=== PATIENT | female | born 1980 | race Caucasian/White ===

== ENCOUNTER 2022-12-21 20:13 | Outpatient (REF) | payer OTHER, SELFPAY ==
[2022-12-25 12:14] LABS: Age Gdln ACOG Testing Note (.); HPV Aptima Negative (Negative); IGP, Aptima HPV, rfx 16/18,45 Note (.)
== END 2022-12-21 20:14 | disposition home or self-care (01) ==
LOC: LAB 20:13
PROVIDERS: Visit Provider Obstetrics & Gynecology
DX: Z01.419 Encounter for gynecological examination (general) (routine) without abnormal findings (principal)
CPT/HCPCS: 87624; G0145

== ENCOUNTER 2023-01-01 07:25 | Outpatient (OUT) | payer OTHER, SELFPAY ==
--- NOTE | 2023-01-01 07:27 | MM_ITS ---
Patient: ELOISA IGLESIAS Exam Date: 01/01/2023 : 1980 Gender:F Ordering : DR Fernando Garrido . Admission #: [id number] Family : ITALIA NEW Order #: [id number] CLICK HERE TO VIEW EXAM RADIOLOGY REPORT PROCEDURE: MM TOMOSYNTHESIS SCREENING BI COMPARISON: MG MAMM SCREEN 3D ROXI CAD, 12/09/2020. MG MAMM SCREEN 3D ROXI CAD, 12/19/2021. INDICATIONS: Screening mammogram Calculator Name NCI Breast Cancer Risk Assessment Tool 5 Year Breast Cancer Risk 0.70% Lifetime Breast Cancer Risk 10.00% Personal Breast Cancer No Personal Ovarian Cancer No Treatments None Family Cancers Father with lung cancer at age 53; Grandfather-paternal with lung cancer at age 70. LOCATION: [facility] BREAST COMPOSITION: Extremely dense, which lowers the sensitivity of mammography. FINDINGS: DIAGNOSTIC CATEGORY 1--NEGATIVE. NO CHANGE FROM COMPARISON ASSESSMENT. RIGHT BREAST: No significant suspicious finding. LEFT BREAST: No significant suspicious finding. RECOMMENDATIONS: ROUTINE MAMMOGRAM AND CLINICAL EVALUATION IN 12 MONTHS. PLEASE NOTE: A NORMAL MAMMOGRAM DOES NOT EXCLUDE THE POSSIBILITY OF BREAST CANCER. A CLINICALLY SUSPICIOUS PALPABLE LUMP SHOULD BE BIOPSIED. Dictated by: Peter Weaver MD on 01/01/2023 at 09:06 Approved by: Peter Weaver MD on 01/01/2023 at 09:08
== END 2023-01-01 07:26 | disposition home or self-care (01) ==
LOC: MAMMO 07:25
PROVIDERS: Visit Provider Obstetrics & Gynecology
DX: Z12.31 Encounter for screening mammogram for malignant neoplasm of breast (principal); Z80.1 Family history of malignant neoplasm of trachea, bronchus and lung
CPT/HCPCS: 77063; 77067

== ENCOUNTER 2024-01-05 19:19 | Outpatient (REF) | payer OTHER, SELFPAY ==
--- OUTSIDE RECORDS SUMMARY | 2024-01-05 19:23 | XMS_ITS | CCD ---
Author Organization [facility] Care Team Providers Care Anthropology And Archeology Instructor Name Role Phone Idalmis Garcia Primary Care Provider Yolanda CHEUNG Primary Care Physician [phone] HERMELINDO, DR ROSS Attending Unavailable HERMELINDO, DR ROSS Consulting Unavailable REQUEST, NONE LISTED Primary Care Unavaila ble HERMELINDO, DR ROSS Admitting Unavailable HERMELINDO, DR ROSS Attending Unavailable REQUEST, NONE LISTED Primary Care Unavaila ble HERMELINDO, DR ROSS Consulting Unavailable HERMELINDO, DR ROSS Admitting Unavailable AGUBOSIM, ELMER Consulting Unavailable MAXIM BAUER Consulting Unavailable HERMELINDO, DR ROSS Attending Unavailable West, DR Green Consulting Unavailable REQUEST, NONE LISTED Primary Care Unavaila ble HERMELINDO, DR ROSS Admitting Unavailable HERMELINDO, DR ROSS Consulting Unavailable HERMELINDO, DR ROSS Consulting Unavailable REQUEST, NONE LISTED Primary Care Unavaila ble HERMELINDO, DR ROSS Admitting Unavailable HERMELINDO, DR ROSS Attending Unavailable Ziitaliaer, DR Domínguez Consulting Unavailable West, DR Green Consulting Unavailable REQUEST, NONE LISTED Primary Care Unavaila ble HERMELINDO, DR ROSS Admitting Unavailable HERMELINDO, DR ROSS Attending Unavailable HERMELINDO, DR ROSS Consulting Unavailable HERMELINDO, DR ROSS Attending Unavailable HERMELINDO, DR ROSS Consulting Unavailable REQUEST, NONE LISTED Primary Care Unavaila ble HERMELINDO, DR ROSS Admitting Unavailable NOLA PHAM Admitting Unavailable REQUEST, NONE LISTED Primary Care Unavaila NOLA Ramirez Attending Unavailable NOLA PHAM Consulting Unavailable ROLDAN URRUTIA Consulting Unavailable Fernando Garrido MD Primary Care Provider ANABELA BOYD Referring Unavailable FERNANDO GARRIDO Primary Care Unavailable KELY GOMEZ Referring Unavailable FERNANDO GARRIDO Primary Care Unavailable KELY GOMEZ Referring Unavailable FERNANDO GARRIDO Primary Care Unavailable KELY GOMEZ Referring Unavailable FERNANDO GARRIDO Primary Care Unavailable Reanna NEW Primary Care Physician CED NEW Attending Unavailable SHAQ, CED Forte E Admitting Unavailable SHAQ, CED Forte E Attending Unavailable SHAQ, CED Reanna E Admitting Unavailable SHAQ, CED Reanna E Attending Unavailable Wittenauer, Hannah SAnthony Attending Unavailable Hannah Abel SAnthony Attending Unavailable SHAQ, CED Forte E Attending Unavailable Allergies Allergy Classification Reported Allergen(s) Allergy Type Date of Onset Reaction(s) Facility (1 source) No Known Medication Allergies; Translations: [No Known Medication Allergies] Propensity to adverse reactions (disorder) [facility] Repository Medications Current Medications Medication Drug Class(es) Dates Sig (Normalized) Sig (Original) amoxicillin 875 mg / clavulanate 125 mg oral tablet (1 source) Penicillin-class Antibacterial Start: 07-03-2021 End: 2021 take 1 tablet by mouth every twelve hours Augmentin 875 mg oral tablet = 1 tab(s), Oral, q12hr, X 10 day(s), # 20 tab(s), Refills(s) 0, Pharmacy: [facility], 170, cm, 07/03/21 13:50:00 EDT, Height/Length Dosing, 63.9, kg, 07/03/21 13:50:00 EDT, Weight Dosing Start Date: 07/03/21 Stop Date: 07/13/21 Status: Ordered cephalexin 500 mg oral capsule (1 source) Cephalosporin Antibacterial Start: 06-21-2021 End: 06-26-2021 take 1 capsule by mouth every twelve hours Keflex 500 mg Cap 500 mg = 1 cap(s), Oral, q12hr, X 5 day(s), # 10 cap(s), Refills(s) 0, Pharmacy: [facility], 170, cm, 06/20/21 23:04:00 EDT, Height/Length Dosing, 64.3, kg, 06/20/21 23:04:00 EDT, Weight Dosing Start Date: 06/21/21 Stop Date: 06/26/21 Status: Ordered clindamycin 10 mg/ml topical foam (4 sources) Lincosamide Antibacterial Start: 05-01-2022 Clindamycin Phosphate 1 % FOAM Apply 1 drop topically in the morning and at bedtime 100 g 3 05/01/2022 Active docusate sodium 100 mg oral capsule (2 sources) Start: 10-30-2020 take 1 capsule by mouth twice daily as needed for constipation Colace 100 mg Cap 100 mg = 1 cap(s), Oral, BID, PRN for constipation, # 60 cap(s), Refills(s) 0, Pharmacy: [facility], 171, cm, 10/30/20 14:37:00 EDT, Height/Length Dosing, 62.9, kg, 10/30/20 14:37:00 EDT, Weight Dosing Start Date: 10/30/20 Status: Ordered famotidine 10 mg oral tablet (2 sources) Histamine-2 Receptor Antagonist Start: 06-21-2021 End: 07-05-2021 take 1 tablet by mouth twice daily famotidine 10 mg oral tablet 10 mg = 1 tab(s), Oral, BID, X 14 day(s), # 28 tab(s), Refills(s) 0, Pharmacy: [facility], 170, cm, 06/20/21 23:04:00 EDT, Height/Length Dosing, 64.3, kg, 06/20/21 23:04:00 EDT, Weight Dosing Start Date: 06/21/21 Stop Date: 07/05/21 Status: Ordered fluticasone 0.05 mg/inh Nasal [place] (4 sources) Start: 07-03-2021 take 2 spray(s) nasal route once daily fluticasone 0.05 mg/inh Nasal [place] 2 spray(s), Nasal, Daily, 16 gram, Refill(s) 2, each nostril, [facility], 170, cm, 07/03/21 13:50:00 EDT, Height/Length Dosing, 63.9, kg, 07/03/21 13:50:00 EDT, Weight Dosing Start Date: 07/03/21 Status: Ordered lidocaine 0.05 mg/mg topical ointment (4 sources) Antiarrhythmic, Amide Local Anesthetic Start: 03-16-2022 lidocaine (XYLOCAINE) 5 % ointment Indications: Vulvodynia Apply topically as needed to the vulvar introitus 30 g 3 03/16/2022 Active predniSONE 20 mg oral tablet (1 source) Start: 07-03-2021 End: 07-08-2021 take 2 tablets by mouth once daily predniSONE 20 mg Tab 40 mg = 2 tab(s), Oral, Daily, X 5 day(s), # 10 tab(s), Refills(s) 0, Pharmacy: [facility], 170, cm, 07/03/21 13:50:00 EDT, Height/Length Dosing, 63.9, kg, 07/03/21 13:50:00 EDT, Weight Dosing Start Date: 07/03/21 Stop Date: 07/08/21 Status: Ordered Completed/Discontinued Medications Medication Drug Class(es) Dates Sig (Normalized) Sig (Original) Itraconazole (2 sources) Azole Antifungal Start: 11-10-2022 Itraconazole Itraconazole, See Instructions, 90 tab(s), 0, 200mg po daily, [facility], Supply, 170, cm, 11/10/22 16:46:00 EDT, Height/Length Dosing, 65.3, kg, 11/10/22 16:46:00 EDT, Weight Dosing Start Date: 11/10/22 Status: Ordered Problems Active Problems Problem Classification Problem Date Documented Da te Episodic/Chronic Abdominal pain (19 sources) Abdominal pain; Translations: [Unspecified abdominal pain] Onset: 01-25-2021 Episodic Conditions associated with dizziness or vertigo (4 sources) Dizziness and giddiness; Translations: [Dizziness and giddiness] Onset: 11-10-2022 Episodic Endometriosis (1 source) Endometriosis, unspecified; Translations: [ENDOMETRIOSIS UNSPECIFIED] Onset: 07-02-2021 Chronic Hemorrhoids (6 sources) Hemorrhoids 10-30-2020 Episodic Immunizations and screening for infectious disease (1 source) Encounter for screening for human papillomavirus (HPV); Translations: [ENC SCREENING HUMAN PAPILLOMAVIRUS] Onset: 12-09-2021 Episodic Malaise and fatigue (4 sources) Fatigue; Translations: [Other fatigue] Onset: 11-10-2022 Episodic Menstrual disorders (1 source) Excessive and frequent menstruation with regular cycle; Translations: [EXCESS FREQ MENSTRUATION W/REG CYCL] Onset: 07-02-2021 Chronic Mycoses (11 sources) Onychomycosis due to dermatophyte ; Translations: [Tinea unguium] Onset: 11-10-2022 Episodic Other diseases of bladder and urethra (4 sources) Cyst of vulva; Translations: [Other specified disorders of urethra] Onset: 05-06-2022 Episodic Other diseases of bladder and urethra (1 source) Other specified disorders of urethra; Translations: [Other specified disorders of urethra] Onset: 05-01-2022 Episodic Other female genital disorders (4 sources) Vulvodynia; Translations: [Vulvodynia, unspecified] Onset: 03-16-2022 03-16-2022 Chronic Other female genital disorders (1 source) Vulvodynia, unspecified; Translations: [Vulvodynia, unspecified] Onset: 03-16-2022 Chronic Other female genital disorders (2 sources) Other specified noninflammatory disorders of vagina; Translations: [OTH SPEC NONINFLAMMATORY D/O VAGINA] Onset: 07-02-2021 Episodic Other female genital disorders (1 source) Vaginal discharge; Translations: [Other specified noninflammatory disorders of vagina] Episodic Other gastrointestinal disorders (2 sources) Abnormal feces; Translations: [Other fecal abnormalities] Onset: 11-10-2022 Episodic Other gastrointestinal disorders (2 sources) Dark stools 11-10-2022 Episodic Other screening for suspected conditions (not mental disorders or infectious disease) (8 sources) Encounter for screening mammogram for malignant neoplasm of breast; Translations: [Encounter for screening for malignant neoplasm of cervix] Onset: 12-08-2021 Episodic Other upper respiratory infections (2 sources) Acute maxillary sinusitis, unspecified; Translations: [Acute maxillary sinusitis] Onset: 07-03-2021 Episodic Residual codes; unclassified (1 source) Family history of malignant neoplasm of trachea, bronchus and lung; Translations: [FAM HX MALIG NEOPLSM TRACH BRON LNG] Onset: 12-24-2021 Episodic Residual codes; unclassified (2 sources) Body mass index 20-24 - normal; Translations: [Body mass index (BMI) 22.0-22.9, adult] Onset: 11-10-2022 Episodic Unclassified (2 sources) Body mass index 20-24 - normal 10-30-2020 Unclassified (2 sources) History of SARS-CoV-2 10-30-2020 Unclassified (1 source) CONTACT W/AND (SUSP) EXPOS COVID-19; Translations: [CONTACT W/AND (SUSP) EXPOS COVID-19] Onset: 06-27-2021 Unclassified (2 sources) Finding of sensation of abdomen 11-10-2022 Urinary tract infections (3 sources) Urinary tract infectious disease; Translations: [Urinary tract infection, site not specified] Onset: 06-21-2021 Episodic Past or Other Problems Problem Classification Problem Date Documented Da te Episodic/Chronic Other female genital disorders (1 source) Vulvar cyst; Translations: [VULVAR CYST] Onset: 07-02-2021 Episodic Ovarian cyst (2 sources) Unspecified ovarian cyst, left side; Translations: [Unspecified ovarian cyst, right side] Onset: 01-27-2021 Episodic Results Test Name Value Interpretation Reference Range Facility Consultation Noteon 02-17-20 Consultation Note [id number] #[id number] Normal [facility] CMPon 02-10-2023 Albumin [Mass/Vol] 4.2 g/dL Normal 3.3-5.0 [facility] Comment on above: Performed By: #### 1 [id number] #### [facility] Laboratory [address] [place] [address] Albumin/Globulin [Mass ratio] 1.9 {ratio} Normal 1.1-2.2 [facility] Comment on above: Performed By: #### 1 [id number], [id number] #### [facility] [address] [place] [address] Alk Phos 26 Int._Unit/L Normal 21-98 [facility] Comment on above: Performed By: #### 1 [id number], [id number] #### [facility] [address] [place] [address] ALT 9 Int._Unit/L Normal 6-46 [facility] Comment on above: Performed By: #### 1 [id number], [id number] #### [facility] [address] [place] [address] Anion gap [Moles/Vol] 8 mmol/L Normal 6-16 [facility] Comment on above: Performed By: #### 1 [id number], [id number] #### [facility] [address] [place] [address] AST 14 Int._Unit/L Normal 5-43 [facility] Comment on above: Performed By: #### 1 [id number], [id number] #### [facility] [address] [place] [address] Bili Total 0.3 mg/dL Normal 0.0-1.1 [facility] Comment on above: Performed By: #### 1 [id number], [id number] #### [facility] [address] [place] [address] BUN/Creat Ratio 19 No Units Normal 10-20 [facility] Comment on above: Performed By: #### 1 [id number], [id number] #### [facility] [address] [place] [address] Calcium [Mass/Vol] 9.1 mg/dL Normal 8.9-11.1 [facility] Comment on above: Performed By: #### 1 [id number], [id number] #### [facility] [address] [place] [address] Chloride [Moles/Vol] 106 mmol/L Normal 101-111 [facility] Comment on above: Performed By: #### 1 [id number], [id number] #### [facility] [address] [place] [address] CO2 [Moles/Vol] 28 mmol/L Normal 21-31 [facility] Comment on above: Performed By: #### 1 [id number], [id number] #### [facility] [address] [place] [address] Creatinine [Mass/Vol] 0.7 mg/dL Normal 0.5-1.3 [facility] Comment on above: Performed By: #### 1 [id number], [id number] #### [facility] [address] [place] [address] Globulin (S) [Mass/Vol] 2.2 g/dL Normal 1.4-4.0 [facility] Comment on above: Performed By: #### 1 [id number], [id number] #### [facility] [address] [place] [address] Glucose [Mass/Vol] 117 mg/dL Normal 55-199 [facility] Comment on above: Performed By: #### 1 [id number], [id number] #### [facility] [address] [place] [address] Potassium [Moles/Vol] 4.3 mmol/L Normal 3.5-5.3 [facility] Comment on above: Performed By: #### 1 [id number], [id number] #### [facility] [address] [place] [address] Protein [Mass/Vol] 6.4 g/dL Normal 6.0-7.8 [facility] Comment on above: Performed By: #### 1 [id number], [id number] #### [facility] [address] [place] [address] Sodium [Moles/Vol] 138 mmol/L Normal 135-145 [facility] Comment on above: Performed By: #### 1 [id number], [id number] #### [facility] [address] [place] [address] Urea nitrogen [Mass/Vol] 13 mg/dL Normal 5-21 [facility] Comment on above: Performed By: #### 1 [id number], [id number] #### [facility] [address] [place] [address] Family Medicine Office/Clini c Noteon 02-10-2023 Family Medicine Office/Clinic Note Chief Complaint 3 mo f/u HPI Staff 3 mo f/u - Nail Fungus - Itraconazole 200 mg daily prescribed. Pt to have LFTs rechecked. CMP ordered. Pt states it is hard to tell if the medication is working. States the middle of the nail on the 3rd right toe fell off again two wks. There is some improvement in her right great nail, there is still a small edge of white discoloration on that nail. History of Present Illness Fe Linton is a 42-year-old female who presents today for a 3-month follow-up, mostly of onychomycosis, but also some other issues. During the 10/2022 appointment, she expressed worries about abdominal cramping, dark stools (not necessarily bloody), and dizziness. Although TSH and CMP results were normal, I requested a hemoccult blood test, but it appears it may not have been conducted. Regarding her nail fungus, she was prescribed 200 mg daily for 12 weeks, and a follow-up for that is scheduled today, 02/09/2023. Initially, liver function was within normal parameters. The patient describes the distal portion of her right great toe as broken off, thickened, yellow, and notes a similar condition in the third right toe with a broken-off, thickened, discolored surrounding nailbed and erythematic skin involvement. She mentions that the right great toenail fell off and grew back in an unusual manner. While she cannot definitively assess the improvement of the edges, she observes that the middle of the nail bed remains thick, with the remaining edges being the toenail. She follows a routine of filing and applying essential oils after her shower, noting some progress but uncertain about a complete return to normal. Despite having about 19 days left of itraconazole; she expresses concern about the appearance not reverting to its usual state. She values wearing flip-flops and is cautious about potential contagion. The affected area is not sensitive to touch. Her stomach is in good condition. Initially, she found it challenging to obtain the sample, and when she finally did, it was a morning one that appeared more solid. While there was initial improvement, her well-being regressed afterward. Her dizziness has resolved. She underwent Pap smear and breast exams at [facility], where it was disclosed that she has dense and fibrous breasts. Despite experiencing soreness on the side, both exams yielded normal results. On 06/21/2022, she underwent a CT scan of the abdomen and pelvis with contrast at [facility], revealing a cyst on her left kidney, along with a kidney stone and a 5 mm diameter cyst in the anterior cortex of the left kidney. The left kidney displayed normal characteristics. Additionally, her uterus is anteverted, and small follicular ovarian cysts were noted. In 12/2022, she experienced severe pain and a ruptured cyst, leading to a diagnostic procedure within 1.5 weeks, during which a cyst was removed. Since then, she has been in good health. Review of Systems PHQ Score Initial Depression Screen Score: 0 SCORE All other systems are negative except as stated in the HPI. Physical Exam Vitals & Measurements HR: 80(Peripheral) BP: 115/81 SpO2: 97% HT: 67 in HT: 170 cm WT: 66.7 kg WT: 146.74 lb BMI: 23.08 General: Well developed, well nourished, in no acute distress Lungs: Normal respiratory effort and clear to auscultation Cardio: Regular rate and rhythm, normal S1 and S2, no murmur, no rub Neurologic: Grossly normal Lymph Nodes: No cervical adenopathy, nodes normal Mental Status: Alert and oriented x3. Normal mood and affect Extremities: Right great toe has gone, and the medial proximal nail is still thickened and deformed. The right third toe is growing back with some white discoloration, but not thick or yellow. Assessment/Plan 1. Onychomycosis of toenail (B35.1: Tinea unguium) Improved some but still deformed. Podiatry referral placed as it cosmetically is bothering her. Repeat CMP to check liver function today. 2. BMI 23.0-23.9, adult (Z68.23: Body mass index [BMI] 23.0-23.9, adult) Normal BMI. 3. Abdominal cramps (R10.9: Unspecified abdominal pain) Dark stools. 4. Dark stools (R19.5: Other fecal abnormalities) Resolved 5. Fatigue (R53.83: Other fatigue) All resolved after she completed 2 weeks of the antifungal. 6. Lightheaded (R42: Dizziness and giddiness) All resolved after she completed 2 weeks of the antifungal. Portions of this record may have been created with voice recognition artificial intelligence software, specifically [employer], [employer] and or [employer]. Substitutions may have occurred with voice recognition and artificial intelligence software. ATTESTATION: Documentation services were performed after patient or guardian consented to allow [employer] to record this visit. QUIANA marketing automation specialist and provider reviewed before signing. QUIANA: Aurora Vazquez Follow-up With When Contact Information Reanna NEW CNP Only if needed [address] (more content not included)... Normal [facility] Comment on above: Result Comment: Elec tronically Signed By: Reanna NEW CNP\.br\Date and Time Signed: 02/10/23 09:22 EST\.br\Electronically Co-Signed By: Aurora Vazquez\.br\Date and Time Co-Signed: 02/09/23 20:30 EST Physician Referralon 023 Physician Referral [id number] #[id number] [facility] eGFRon 02-10-2023 eGFR 111 mL/min/1.73 m2 Normal >=59 [facility] Comment on above: Order Comment: Order added by Discern Expert. Performed By: #### 1 [id number], [id number] #### [facility] Laboratory [address] [place] [address] Ambulatory Visit Summaryon 1 04-12-2022 Ambulatory Visit Summary FE LINTON :1980 Visit Date:02/09/2023 Ambulatory Visit Instructions Your Diagnosis Onychomycosis of toenail BMI 23.0-23.9, adult Abdominal cramps Dark stools Fatigue Lightheaded Your Care Team Attending Physician - Reanna NEW CNP Primary Care Physician - Reanna NEW CNP This Is Your Medications List Contact prescribing physician if questions or concerns fluticasone nasal (fluticasone 0.05 mg/inh Nasal [place]) [Image Removed: STOP]Stop taking these medications Misc Prescription (Itraconazole) Procedures Performed Ablation. Discharge Vitals Heart Rate (Peripheral) 80 Blood Pressure 115/81 Height 170 cm Height 67 in Weight 66.7 kg Weight 146.74 lb BMI 23.08 What to do next You Need to Schedule the Following Appointments Follow Up with Reanna NEW CNP When: Only if needed Where: [address] [place] [address]- Someone Will Contact You Regarding These Appointments [facility]ulatory Referral, Geographic proximity, Podiatry, [facility], 02/09/23 16:30:00 EST, Onychomycosis of toenail Medications What How Much When Instructions Unchanged fluticasone nasal (fluticasone 0.05 mg/ inh Nasal [place]) 2 Sprays Nasal Inhalation Every day each nostril Contact prescribing physician if questions or concerns What How Much When Comments Stop Taking Misc Prescription (Itraconazole) See instructions 200mg po daily Allergies No Known Medication Allergies Problems Ongoing - Any problem that you are currently receiving treatment for. Onychomycosis of toenail Historical - Any problem that you are no longer receiving treatment for. Hemorrhoid Nail fungus Tinea pedis, right Patient Survey You may receive a survey via text or e-mail asking about your office visit. Please share your experience with us by completing your survey. We appreciate your feedback and thank you for choosing us for your care. Normal [facility] Family Medicine Office/Clini c Noteon 11-18-2022 Family Medicine Office/Clinic Note Chief Complaint Dizziness, nail fungus HPI Staff Nail Fungus - Terbinafine 250 mg qd X 30 days prescribed in July. Pt did finish the prescription and states it did not work. States on her right great toe the fungus seems to be spreading further into the base of the nail. The third toenail may be clearing up but she has had some sensitivity on and off with that toes. Pt is c/o fatigue, lightheadedness and a brain fog for the past month. She had labs done in Sep in [place], she brought results for review. Pt also c/o diarrhea that started Wednesday, she had liquid diarrhea all day on Wednesday with severe abd pain. She took Imodium and almost took herself to the ER. The diarrhea persists into today, no longer liquid but is very loose. States the color off her diarrhea has been very dark, borderline black. History of Present Illness Fe Linton is a 42-year-old female who presents today for a recheck of onychomycosis. She saw Dr. Abel back on 08/11/2022 here for right toenail fungus. It was on primarily her great toe about a month ago and then spread to the third toe. She noticed some soreness to the third toe and took her nail wallisian off and that is when she saw the nail discoloration. She did have similar years ago and [id number] things resolved it, but that was not helping this time. She was prescribed terbinafine 250 mg once a day for 30 days. She did discuss Penlac as additional, but this was not prescribed. It does not appear, and she was told to use corrox to clean things. She did have an ER visit last year and liver enzymes were normal. She finished the terbinafine prescription. Unfortunately, it did not work. The right great toe seems to be spreading into the nail more. The third toenail might be clearing up, but both toes are very sensitive. She also has had brain fog, fatigue, and some lightheadedness, not necessarily dizziness for the past month. In 09/2022, [facility] [facility]. She has those labs with her today. She also had a recent GI illness on 11/06/2022. Five days ago, she started with diarrhea. The diarrhea persisted until 11/08/2021, with clear liquid diarrhea. She also had severe abdominal pain on 11/08/2021. She did take Imodium. The diarrhea is still there, but is no longer liquid, but very loose. The color of the stool is very dark, almost black. Reviewing the labs from [facility], the CBC was completely normal. Electrolytes normal. Blood sugar 102 mg/dL. Creatinine 0.72 mg/dL. GFR greater than 60 mL/min. Total cholesterol 178 mg/dL, HDL 67 mg/dL, LDL 102 mg/dL, triglycerides 45 mg/dL. A1c 5.4 percent. She has not been feeling well and her toe was not healing. She denies any family history of thyroid issues. She denies any weight gain or weight loss. Since the beginning of 09/2022, she has been feeling dizzy and lightheaded. She notes that when she gets up at work, her legs feel weak and heavy. As the day goes on, she feels a little better, but she feels off all day long and then extremely dizzy. She had her glucose level and blood pressure checked but it was all normal. She started taking collagen over the summer. She has not noticed a difference with her fingernails, but she thought her eyelashes were growing a little longer. She always loses a lot of hair in the shower, but she has not noticed anything more than normal. She denies any temperature intolerances. She is a little insensitive to the heat since she is getting older. Sometimes she will be sitting still and then suddenly, she will feel like it is spinning but she does not think she gets nauseous with it. She has rare heart palpitations. She denies any shortness of breath. She denies any allergy issues until this last week. She was not sure if she had a cold or if she had an allergy. She was prescribed terbinafine for 30 days and may have helped the one, but they are still very sensitive and her great toe is getting worse. It started with a dent and then it kept getting grosser as it fell off. She states that now it is growing back. She bought some homeopathic oil and was putting it on religiously, but she is unsure if the oils were seeping into her sides, and she did not notice a difference. She has been spraying her showers and sleeping with a sock. She gets pain that starts on the side of her abdomen and radiates. She gets a heavy feeling, and she has to go numb. The cramping has been going on since 11/08/2022. She has an appetite. She denies any fevers or chills. She feels nauseous when her stomach is crampy. She went to the bathroom 4 times at work. Wednesday morning, 11/07/2022, she went to have a bowel movement as soon as she got out of bed. On 11/09/2022, she woke up and she was going every 10 minutes from 7:30 AM to noon until her Imodium kicked in. It was watery and stringy then it settled like blood. She was getting nervous because it would not stop. She felt garbage at work on 11/09/2022. She states th (more content not included)... Normal [facility] Comment on above: Result Comment: Elec tronically Signed By: Reanna NEW CNP\debra\Date and Time Signed: 11/18/22 10:03 EDT\.br\Electronically Co-Signed By: Marisa Gonzalez\.br\Date and Time Co-Signed: 11/10/22 20:42 EDT CHEMISTRYOrdered By: SYSTEM SYSTEM on 11-11-2022 Albumin [Mass/Vol] 4.3 g/dL Normal 3.3 - 5.0 gm/dL [facility] Remisol Albumin/Globulin [Mass ratio] 1.4 {ratio} Normal 1.1 - 2.2 [facility] Remisol ALP [Catalytic activity/Vol] 35 [iU]/d Normal 21 - 98 Int._Unit/L [facility] Remisol ALT No additional P-5'-P [Catalytic activity/Vol] 13 [iU]/d Normal 6 - 46 Int._Unit/L [facility] Remisol Anion gap [Moles/Vol] 9 mmol/L Normal 6 - 16 mEq/L [facility] Remisol AST [Catalytic activity/Vol] 16 [iU]/d Normal 5 - 43 Int._Unit/L [facility] Rem[facility] Bilirubin [Mass/Vol] 0.4 mg/dL Normal 0.0 - 1 .1 mg/dL [facility] Remisol Calcium [Mass/Vol] 9.8 mg/dL Normal 8.9 - 11. 1 mg/dL [facility] Chloride [Moles/Vol] 104 mmol/L Normal 101 - 1 11 mmol/L [facility] CO2 [Moles/Vol] 30 mmol/L Normal 21 - 31 mmol/L [facility] Remisol Creatinine [Mass/Vol] 0.7 mg/dL Normal 0.5 - 1.3 mg/dL [facility] Remisol GFR/1.73 sq M.predicted among non-blacks MDRD (S/P/Bld) [Vol rate/Area] 111 mL/min/1.73 m2 Normal >=59mL/min/1. 73 m2 [facility] Chem S Globulin (S) [Mass/Vol] 3.0 g/dL Normal 1.4 - 4.0 gm/dL [facility] Remisol Glucose [Mass/Vol] 113 mg/dL Normal 55 - 199 mg/dL [facility] Remisol Potassium [Moles/Vol] 3.7 mmol/L Normal 3.5 - 5.3 mmol/L [facility] Remisol Protein [Mass/Vol] 7.3 g/dL Normal 6.0 - 7.8 gm/dL [facility] Remisol Sodium [Moles/Vol] 139 mmol/L Normal 135 - 145 mmol/L [facility] Remisol TSH Qn 1.14 m[IU]/L Normal 0.34 - 5.60 mcIU/mL [facility] Remisol Urea nitrogen [Mass/Vol] 14 mg/dL Normal 5 - 21 mg/dL [facility] Remisol Urea nitrogen/Creatinine [Mass ratio] 20 mg/mg Normal 10 - 20 [facility] Remisol CMPon 11-11-2022 Albumin [Mass/Vol] 4.3 g/dL Normal 3.3-5.0 [facility] Comment on above: Performed By: #### 1 [id number] #### [facility] Laboratory [address] [place] [address] Albumin/Globulin (S) [Mass conc ratio] 1.4 Normal 1.1-2.2 [facility] Comment on above: Performed By: #### 1 [id number] #### [facility] [address] [place] [address] ALP [Catalytic activity/Vol] 35 Int._Unit/L Normal 21-98 [facility] Comment on above: Performed By: #### 1 [id number], [id number] #### [facility] [address] [place] [address] ALT No additional P-5'-P [Catalytic activity/Vol] 13 Int._Unit/L Normal 6-46 [facility] Comment on above: Performed By: #### 1 [id number] #### [facility] [address] [place] [address] Anion gap [Moles/Vol] 9 mmol/L Normal 6-16 [facility] Comment on above: Performed By: #### 1 [id number], [id number] #### [facility] [address] [place] [address] AST [Catalytic activity/Vol] 16 Int._Unit/L Normal 5-43 [facility] Comment on above: Performed By: #### 1 [id number], [id number] #### [facility] [address] [place] [address] Bilirubin [Mass/Vol] 0.4 mg/dL Normal 0.0-1.1 [facility] Comment on above: Performed By: #### 1 [id number], [id number] #### [facility] [address] [place] [address] Calcium [Mass/Vol] 9.8 mg/dL Normal 8.9-11.1 [facility] Comment on above: Performed By: #### 1 [id number], [id number] #### [facility] [address] [place] [address] Chloride [Moles/Vol] 104 mmol/L Normal 101-111 [facility] Comment on above: Performed By: #### 1 [id number], [id number] #### [facility] [address] [place] [address] CO2 [Moles/Vol] 30 mmol/L Normal 21-31 [facility] Comment on above: Performed By: #### 1 [id number], [id number] #### [facility] [address] [place] [address] Creatinine [Mass/Vol] 0.7 mg/dL Normal 0.5-1.3 [facility] Comment on above: Performed By: #### 1 [id number], [id number] #### [facility] [address] [place] [address] Globulin (S) [Mass/Vol] 3.0 g/dL Normal 1.4-4.0 [facility] Comment on above: Performed By: #### 1 [id number], [id number] #### [facility] [address] [place] [address] Glucose [Mass/Vol] 113 mg/dL Normal 55-199 [facility] Comment on above: Result Comment: If t his glucose result represents a fasting glucose, interpretation should refer to the following reference range: 55-99 mg/dL Performed By: #### 1 [id number], [id number] #### [facility] [address] [place] [address] Potassium [Moles/Vol] 3.7 mmol/L Normal 3.5-5.3 [facility] Comment on above: Performed By: #### 1 [id number], [id number] #### [facility] [address] [place] [address] Protein [Mass/Vol] 7.3 g/dL Normal 6.0-7.8 [facility] Comment on above: Performed By: #### 1 [id number], [id number] #### [facility] [address] [place] [address] Sodium [Moles/Vol] 139 mmol/L Normal 135-145 [facility] Comment on above: Performed By: #### 1 [id number], [id number] #### [facility] [address] [place] [address] Urea nitrogen [Mass/Vol] 14 mg/dL Normal 5-21 [facility] Comment on above: Performed By: #### 1 [id number], [id number] #### [facility] [address] [place] [address] Urea nitrogen/Creatinine [Mass ratio] 20 No Units Normal 10-20 [facility] Comment on above: Performed By: #### 1 [id number], [id number] #### [facility] Laboratory [address] [place] [id number] Consent for Treatmenton 10-30 Consent for Treatment [id number] 30 [id number] #[id number]:127 Normal [facility] Lab Reportson 11-11-2022 Lab Reports [id number] #[id number]:127 Normal [facility] TSH With T4fr Reflexon 11-11 TSH Qn 1.14 m[IU]/L Normal 0.34-5.60 [facility] Comment on above: Performed By: #### 1 [id number], [id number] #### [facility] [address] [place] [address] eGFRon 11-11-2022 GFR/1.73 sq M.predicted among non-blacks MDRD (S/P/Bld) [Vol rate/Area] 111 mL/min/1.73 m2 Normal >=59 [facility] Comment on above: Order Comment: Order added by Discern Expert. Result Comment: Magician Helper lisbeth kidney disease could be indicated at eGFR's of less than 60 mL/min/1.73m2. Kidney failure is indicated at less than 15 mL/min/1.73m2. Performed By: #### 1 [id number], [id number] #### [facility] Laboratory [address] [place] [address] Ambulatory Visit Summaryon 0 11-10-2022 Ambulatory Visit Summary FE LINTON :1980 Visit Date:11/10/2022 Ambulatory Visit Instructions Your Diagnosis Onychomycosis of toenail Dark stools Abdominal cramps Fatigue Lightheaded BMI 22.0-22.9, adult Your Care Team Attending Physician - Reanna NEW CNP Primary Care Physician - Reanna NEW CNP This Is Your Medications List Misc Prescription (Itraconazole) Contact prescribing physician if questions or concerns fluticasone nasal (fluticasone 0.05 mg/inh Nasal [place]) Procedures Performed Ablation. Discharge Vitals Heart Rate (Peripheral) 68 Blood Pressure 135/85 Height 170 cm Height 67 in Weight 65.3 kg Weight 143.66 lb BMI 22.6 What to do next You Need to Schedule the Following Appointments Follow Up with Reanna NEW CNP When: In 3 months Where: [address] [place] [address]- You Need to Complete the Following Clostridium Difficile PCR, Stool, Routine collect, 11/10/22, Order for future visit, Nurse collect, Dark stools, Print Label By Order Location Comprehensive Metabolic Panel, Blood, Routine collect, 11/10/22, Order for future visit, Lab Collect, Onychomycosis of toenail, Print Label By Order Location Enteric Panel by PCR, Stool, Routine collect, 11/10/22, Order for future visit, Nurse collect, Dark stools, Print Label By Order Location Fecal WBC Lactoferrin, Stool, Routine collect, 11/10/22, Order for future visit, Nurse collect, Dark stools, Print Label By Order Location Giardia lamblia, Direct Detection EIA, Stool, Routine collect, 11/10/22, Order for future visit, Nurse collect, Dark stools, Print Label By Order Location O & P Exam, Routine, Stool, Routine collect, 11/10/22, Order for future visit, Nurse collect, Dark stools, Print Label By Order Location Rotavirus Ab, Stool, Routine collect, 11/10/22, Order for future visit, Nurse collect, Dark stools, Print Label By Order Location Stool Occult Blood, Stool, Routine collect, 11/10/22, Order for future visit, Nurse collect, Dark stools, Print Label By Order Location TSH With T4fr Reflex, Blood, Routine collect, 11/10/22, Order for future visit, Lab Collect, Fatigue, Print Label By Order Location Medications What How Much When Instructions [facility] Prescription (Itraconazole) See instructions 200mg po daily Pickup at [facility] Unchanged fluticasone nasal (fluticasone 0.05 mg/ inh Nasal [place]) 2 Sprays Nasal Inhalation Every day each nostril Contact prescribing physician if questions or concerns Pharmacy Information [facility] 1986: [address] [place], [place] [id number] [phone] Medications and Immunizations Administered Not Given influenza virus vaccine, inactivated, Patient Refuses Allergies No Known Medication Allergies Problems Ongoing - Any problem that you are currently receiving treatment for. Abdominal cramps Dark stools Fatigue Lightheaded Onychomycosis of toenail Historical - Any problem that you are no longer receiving treatment for. Hemorrhoid Nail fungus Tinea pedis, right Normal [facility] Family Medicine Office/Clini c Noteon 08-12-2022 Family Medicine Office/Clinic Note HPI Staff Fe is a 42 year old female being seen for fungus on her right foot. Pt reports it started on her great toe about a month ago and the third toe started getting sore about 2 months ago which is when she knew something was not right. When she took her toenail wallisian off about a month ago she noticed discoloration and as of recently when she took her toenail wallisian off more recently she said it is evident there is an infection/fungus. PHQ 9 score - 0 History of Present Illness History of Present Illness: Patient presents today for a toe fungus on her right big toe. - Patient has fungus which extends to the base of the toe and the third metatarsal on the right foot. - Patients report having toe fungus years ago and tried to treat it with Lamisil but finds over the counter remedies ineffective. - However, in the past month, a toe fungus has developed, resulting in persistent soreness in the affected area for approximately 2 months. - She feels she may be losing a toenail, as there was a noticeable divot. About 2 weeks ago, her third metatarsal became red and swollen. - She reports that her toe fungus is not severe but causes a strange sensation, with reduced pain upon touch, decreased swelling, and better visibility after removing nail wallisian. - Patient confirms the need for a Pap smear test and mammogram, which are typically conducted by Dr. Nathan. The patient clarifies that they already had their yearly check-up and related procedures at [facility], so they are not due for another appointment until November. Review of Systems PHQ Score Initial Depression Screen Score: 0 Physical Exam Vitals & Measurements HR: 67(Peripheral) BP: 116/58 SpO2: 98% HT: 67 in HT: 170 cm WT: 64.2 kg WT: 141.24 lb BMI: 22.21 - She is alert and oriented, clean and - Ear: TM normal - Heart: normal rate and rhythm. - Lungs: clear to auscultations bilaterally with good air exchange. - Abdomen: soft and nontender. - Skin: tanned. - Lower extremities: positive for fungus on the right big toe and third toe almost to the base: Pedal pulse normal on the right foot. Assessment/Plan 1. Nail fungus (B35.1: Tinea unguium) - Prescribed Lamisil 251 a day for 30 days then in case of unresolved symptoms, the patient was also advised about the option of using Penlac for additional support in eliminating the fungus. - We advised about Clorox cleaning her tubs and wearing shoes in any type of sweaty public area, for example gyms and swimming pools. We also discussed airing out the feet and keeping nail wallisian off the toes. - Advised her that Lamisil does work through the liver, but she has a functional, healthy liver and that should not be any problem for a thirty-day trial. - Other concerns, we also addressed her Tdap and explained about Pertussis. - We completed the depression screen for the [employer] system, and she is up to date on her Paps and mammograms. - She goes to [facility] I assume that's an OBGYN and she is up to date. Portions of this record may have been created with voice recognition artificial intelligence software, specifically [employer], [employer] and or [employer]. Substitutions may have occurred due to the inherent limitations of voice recognition and artificial intelligence software. Documentation services were performed after patient or guardian consented to allow [employer] to record this visit. QUIANA marketing automation specialist and provider reviewed before signing. QUIANA: Jennifer Garcia. Entered into Easydiagnosis by: Jihan Bernard Follow-up With When Contact Information Hannah Abel DO, FAM In 1 month Additional Instructions: only if nail does not resolve Patient Education Fungal Nail Infection Problem List/Past Medical History Ongoing Hemorrhoid Maxillary sinusitis, acute Historical Nail fungus Tinea pedis, right Procedure/Surgical History Ablation. Medications fluticasone 0.05 mg/inh Nasal [place], 2 spray(s), Nasal, Daily, 2 refills LamISIL 250 mg Tab, 250 mg= 1 tab(s), Oral, Daily, 1 refills Allergies No Known Medication Allergies Social History Alcohol - Low Risk, 08/11/2022 Current, 1-2 times per year, Household alcohol concerns: No., 08/11/2022 Substance Abuse - Denies Substance Abuse, 08/11/2022 Household substance abuse concerns: No., 08/11/2022 Tobacco - Denies Tobacco Use, 08/11/2022 Never (less than 100 in lifetime) Tobacco Use:. Never Smokeless Tobacco Use:. Household tobacco concerns: No., 08/11/2022 Family History Primary malignant neoplasm of lung: Father. lamisil 250mg Normal [facility] Comment on above: Result Comment: Elec tronically Signed By: Hannah Abel DO\.br\Date and Time Signed: 08/12/22 16:41 EDT Ambulatory Visit Summaryon 0 08-11-2022 Ambulatory Visit Summary FE LINTON :1980 Visit Date:08/11/2022 Ambulatory Visit Instructions Your Diagnosis Nail fungus Your Care Team Attending Physician - Hannah Abel DO Primary Care Physician - Reanna NEW CNP This Is Your Medications List fluticasone nasal (fluticasone 0.05 mg/inh Nasal [place]) terbinafine (LamISIL 250 mg Tab) Discharge Vitals Heart Rate (Peripheral) 67 Blood Pressure 116/58 Height 170 cm Height 67 in Weight 64.2 kg Weight 141.24 lb BMI 22.21 What to do next You Need to Schedule the Following Appointments Follow Up with Hannah Abel DO, FAM When: In 1 month Comments: only if nail does not resolve Where: Medications What How Much When Instructions New terbinafine (LamISIL 250 mg Tab) 1 Tablets By Mouth Every day Duration: 14 Days Refills: [address] [facility] 1985 Unchanged fluticasone nasal (fluticasone 0.05 mg/ inh Nasal [place]) 2 Sprays Nasal Inhalation Every day each nostril Pharmacy Information [facility] 1986: [address] [place] [phone] Allergies No Known Medication Allergies Problems Ongoing - Any problem that you are currently receiving treatment for. Hemorrhoid Maxillary sinusitis, acute Historical - Any problem that you are no longer receiving treatment for. Nail fungus Tinea pedis, right Education Materials Fungal Nail Infection A fungal nail infection is a common infection of the toenails or fingernails. This condition affects toenails more often than fingernails. It often affects the great, or big, toes. More than one nail may be infected. The condition can be passed from person to person (is contagious). What are the causes? This condition is caused by a fungus, such as yeast or molds. Several types of fungi can cause the infection. These fungi are common in moist and warm areas. If your hands or feet come into contact with the fungus, it may get into a crack in your fingernail or toenail or in the surrounding skin, and cause an infection. What increases the risk? The following factors may make you more likely to develop this condition: ? Being of older age. ? Having certain medical conditions, such as: ? Athlete's foot. ? Diabetes. ? Poor circulation. ? A weak body defense system (immune system). ? Walking barefoot in areas where the fungus thrives, such as showers or locker rooms. ? Wearing shoes and socks that cause your feet to sweat. ? Having a nail injury or a recent nail surgery. What are the signs or symptoms? Symptoms of this condition include: ? A pale spot on the nail. ? Thickening of the nail. ? A nail that becomes yellow, brown, or white. ? A brittle or ragged nail edge. ? A nail that has lifted away from the nail bed. How is this diagnosed? This condition is diagnosed with a physical exam. Your health care provider may take a scraping or clipping from your nail to test for the fungus. How is this treated? Treatment is not needed for mild infections. If you have significant nail changes, treatment may include: ? Antifungal medicines taken by mouth (orally). You may need to take the medicine for several weeks or several months, and you may not see the results for a long time. These medicines can cause side effects. Ask your health care provider what problems to watch for. ? Antifungal nail wallisian or nail cream. These may be used along with oral antifungal medicines. ? Laser treatment of the nail. ? Surgery to remove the nail. This may be needed for the most severe infections. It can take a long time, usually up to a year, for the infection to go away. The infection may also come back. Follow these instructions at home: Medicines ? Take or apply [id number] and prescription medicines only as told by your health care provider. ? Ask your health care provider about using [id number] mentholated ointment on your nails. Nail care ? Trim your nails often. ? Wash and dry your hands and feet every day. ? Keep your feet dry. To do this: ? Wear absorbent socks, and change your socks frequently. ? Wear shoes that allow air to circulate, such as sandals or canvas tennis shoes. Throw out old shoes. ? If you go to a nail salon, make sure you choose one that uses clean instruments. ? Use antifungal foot powder on your feet and in your shoes. General instructions ? Do not share personal items, such as towels or nail clippers. ? Do not walk barefoot in shower rooms or locker rooms. ? Wear rubber gloves if you are working with your hands in wet areas. ? Keep all follow-up visits. This is important. Contact a health care provider if: ? You have redness, pain, or pus near the toenail or fingernail. ? Your infection is not getting better, or it is getting worse after several months. ? You have more circulat (more content not included)... Normal [facility] Patient Educationon 08-12-19 Patient Education Infectious Disease Fungal Nail Infection A fungal nail infection is a common infection of the toenails or fingernails. This condition affects toenails more often than fingernails. It often affects the great, or big, toes. More than one nail may be infected. The condition can be passed from person to person (is contagious). What are the causes? This condition is caused by a fungus, such as yeast or molds. Several types of fungi can cause the infection. These fungi are common in moist and warm areas. If your hands or feet come into contact with the fungus, it may get into a crack in your fingernail or toenail or in the surrounding skin, and cause an infection. What increases the risk? The following factors may make you more likely to develop this condition: ? Being of older age. ? Having certain medical conditions, such as: ? Athlete's foot. ? Diabetes. ? Poor circulation. ? A weak body defense system (immune system). ? Walking barefoot in areas where the fungus thrives, such as showers or locker rooms. ? Wearing shoes and socks that cause your feet to sweat. ? Having a nail injury or a recent nail surgery. What are the signs or symptoms? Symptoms of this condition include: ? A pale spot on the nail. ? Thickening of the nail. ? A nail that becomes yellow, brown, or white. ? A brittle or ragged nail edge. ? A nail that has lifted away from the nail bed. How is this diagnosed? This condition is diagnosed with a physical exam. Your health care provider may take a scraping or clipping from your nail to test for the fungus. How is this treated? Treatment is not needed for mild infections. If you have significant nail changes, treatment may include: ? Antifungal medicines taken by mouth (orally). You may need to take the medicine for several weeks or several months, and you may not see the results for a long time. These medicines can cause side effects. Ask your health care provider what problems to watch for. ? Antifungal nail wallisian or nail cream. These may be used along with oral antifungal medicines. ? Laser treatment of the nail. ? Surgery to remove the nail. This may be needed for the most severe infections. It can take a long time, usually up to a year, for the infection to go away. The infection may also come back. Follow these instructions at home: Medicines ? Take or apply sgyz-eny-lsrdpod and prescription medicines only as told by your health care provider. ? Ask your health care provider about using sluq-tbr-othlpcy mentholated ointment on your nails. Nail care ? Trim your nails often. ? Wash and dry your hands and feet every day. ? Keep your feet dry. To do this: ? Wear absorbent socks, and change your socks frequently. ? Wear shoes that allow air to circulate, such as sandals or canvas tennis shoes. Throw out old shoes. ? If you go to a nail salon, make sure you choose one that uses clean instruments. ? Use antifungal foot powder on your feet and in your shoes. General instructions ? Do not share personal items, such as towels or nail clippers. ? Do not walk barefoot in shower rooms or locker rooms. ? Wear rubber gloves if you are working with your hands in wet areas. ? Keep all follow-up visits. This is important. Contact a health care provider if: ? You have redness, pain, or pus near the toenail or fingernail. ? Your infection is not getting better, or it is getting worse after several months. ? You have more circulation problems near the toenail or fingernail. ? You have brown or black discoloration of the nail that spreads to the surrounding skin. Summary ? A fungal nail infection is a common infection of the toenails or fingernails. ? Treatment is not needed for mild infections. If you have significant nail changes, treatment may include taking medicine orally and applying medicine to your nails. ? It can take a long time, usually up to a year, for the infection to go away. The infection may also come back. ? Take or apply cqib-kca-gvfumec and prescription medicines only as told by your health care provider. This information is not intended to replace advice given to you by your health care provider. Make sure you discuss any questions you have with your health care provider. Document Revised: 05/19/2021 Document Reviewed: 05/19/2021 Elsevier Patient Education ? [address] [employer] [facility] Myco/Ureaplasma Culton 05-11 Myco/Ureaplasma Cult (NOTE) [facility] Comment on above: Result Comment: Urea plasma Species and Mycoplasma hominis Culture [facility] test code [id number] Collected: 05/01/2022 16:59 MT Started: 05/04/2022 12:46 MT Source: Genital Body Site: Genital Free Text Sources: Genital Final Report Culture negative for Mycoplasma hominis Culture negative for Ureaplasma spp Ureaplasma Species and Mycoplasma hominis Culture COLLECTED 05/01/2022 16:59 S=Susceptible, NonS=Nonsusceptible, IND=Indeterminate, I=Intermediate, SDD=Susceptibility is dose dependent, R=Resistant, None=Interpretive guidelines are not available Performed By: #### A RYLEE #### [facility] [place] [address] Attacher: Toni Mcfarland MD Vaginitis DNA Probeon [address] [facility] Comment on above: Result Comment: for Brandon sp. Method of testing is a DNA probe intended for detection and identification of Brandon species, Gardnerella vaginalis, and Trichomonas vaginalis nucleic acid in vaginal fluid specimens from patients with symptoms of vaginitis/vaginosis. Performed By: #### V AGP #### [facility] [address] [place] [id number] Attacher: Toni Mcfarland MD Gardnerella Negative Normal NEG [facility] Comment on above: Result Comment: for Gardnerella vaginalis Performed By: #### V AGP #### [facility] [address] [place] [id number] Attacher: Toni Mcfarland MD Trichomonas Negative Normal NEG [facility] Comment on above: Result Comment: for Trichomonas Vaginalis Performed By: #### V AGP #### [facility] [employer] [address] [place] [phone] Attacher: Toni Mcfarland MD Vaginitis DNA Probeon 2022 Brandon Species, DNA Probe Negative NEGATIVE [facility] Comment on above: for Brandon sp. Method of testing is a DNA probe intended for detection and identification of Brandon species, Gardnerella vaginalis, and Trichomonas vaginalis nucleic acid in vaginal fluid specimens from patients with symptoms of vaginitis/vaginosis. Gardnerella Vaginalis, DNA Probe Negative NEGATIVE [facility] Comment on above: for Gardnerella vagi nalis Source .VAGINAL SWAB [facility] Trichomonas Vaginalis DNA Negative NEGATIVE [facility] Comment on above: for Trichomonas Vagi nalis [facility] Source .VAGINAL SWAB Normal [facility] Comment on above: Performed By: #### V AGP #### [address] [address] Attacher: Toni Mcfarland MD Vaginitis DNA Probeon 2022 Brandon Negative Normal NEG [facility] Comment on above: Result Comment: for Brandon sp. Method of testing is a DNA probe intended for detection and identification of Brandon species, Gardnerella vaginalis, and Trichomonas vaginalis nucleic acid in vaginal fluid specimens from patients with symptoms of vaginitis/vaginosis. Performed By: #### V AGP #### [facility] [place] [address] Attacher: Toni Mcfarland MD Gardnerella Negative Normal NEG [facility] Comment on above: Result Comment: for Gardnerella vaginalis Performed By: #### V AGP #### [facility] [address] [place] [phone] Attacher: Toni Mcfarland MD Trichomonas Negative Normal NEG [facility] Comment on above: Result Comment: for Trichomonas Vaginalis Performed By: #### V AGP #### [facility] [address] [place] [address] Attacher: Toni Mcfarland MD Vaginitis DNA Probeon 2022 Source .VAGINAL SWAB Normal [facility] Comment on above: Performed By: #### V AGP #### [facility] [address] [place] [phone] Attacher: Toni Mcfarland MD MG MAMM SCREEN 3D ROXI CADon 12-19-2021 MG MAMM SCREEN 3D ROXI CAD Patient: FE LINTON Exam Date: 12/19/2021 : 1980 Gender:F Ordering : DR FERNANDO GARRIDO . Admission #: [id number] Family : Order #: [id number] CLICK HERE TO VIEW EXAM RADIOLOGY REPORT PROCEDURE: MAMMOGRAM SCREENING 3D BILATERAL CAD COMPARISON: MG MAMM SCREEN 3D ROXI CAD, 12/09/2020. INDICATIONS: Screening mammography Calculator Name NCI Breast Cancer Risk Assessment Tool 5 Year Breast Cancer Risk 0.60% Lifetime Breast Cancer Risk 10.10% Personal Breast Cancer No Personal Ovarian Cancer No Treatments None Family Cancers Father with lung cancer at age 53; Grandfather-paternal with lung cancer at age 70. LOCATION: [facility] BREAST COMPOSITION: Extremely dense, which lowers the sensitivity of mammography. FINDINGS: DIAGNOSTIC CATEGORY 1--NEGATIVE. NO CHANGE FROM COMPARISON ASSESSMENT. RIGHT BREAST: No significant suspicious finding. LEFT BREAST: No significant suspicious finding. RECOMMENDATIONS: ROUTINE MAMMOGRAM AND CLINICAL EVALUATION IN 12 MONTHS. PLEASE NOTE: A NORMAL MAMMOGRAM DOES NOT EXCLUDE THE POSSIBILITY OF BREAST CANCER. A CLINICALLY SUSPICIOUS PALPABLE LUMP SHOULD BE BIOPSIED. Dictated by: Matt Deluca MD on 12/19/2021 at 08:22 Approved by: Matt Deluca MD on 12/19/2021 at 08:24 Normal [facility] PAP ACOG PANEL 2: 30 to 65on 12-15-2021 . . Normal [facility] Comment on above: Result Comment: Perf ormed at: WB Performed By: #### [id number] #### [facility] [address] [place] [address] Dr. Man Arroyo Age Gdln ACOG Testing 30-65 Normal [facility] Comment on above: Performed By: #### [id number] #### [facility] [address] [place] [address] Dr. Man Arroyo DIAGNOSIS: Comment Normal [facility] Comment on above: Result Comment: NEGA TIVE FOR INTRAEPITHELIAL LESION OR MALIGNANCY. THIS SPECIMEN WAS RESCREENED PART OF OUR VERTICAL LATHE OPERATOR PROGRAM. Performed at: WB Performed By: #### [id number] #### [facility] [address] [place] [address] Dr. Man Arroyo HPV Aptima Negative Normal Negative [facility] Comment on above: Result Comment: This nucleic acid amplification test detects fourteen high-risk HPV types (16,18,31,33,35,39,45,51,52,56,58,59,66,68) without differentiation. Performed at: =G Performed By: #### [id number] #### [facility] [address] [address] [address] Man Arroyo Methodology: Comment Normal [facility] Comment on above: Result Comment: This liquid based ThinPrep(R) pap test was screened with the use of an image guided system. Performed at: WB Performed By: #### [id number] #### [facility] [address] [place] [address] Dr. Man Arroyo Note: Comment Normal [facility] Comment on above: Result Comment: The Pap smear is a screening test designed to aid in the detection of premalignant and malignant conditions of the uterine cervix. It is not a diagnostic procedure and should not be used as the sole means of detecting cervical cancer. Both false-positive and false-negative reports do occur. . Performed at: WB Performed By: #### [id number] #### [facility] [address] [place] [address] Dr. Man Arroyo Performed by: Comment Normal [facility] Comment on above: Result Comment: Andria Dricsoll, Spanner Operator (ASCP) Performed at: WB Performed By: #### [id number] #### [facility] [address] [place] [address] Dr. Man Arroyo QC reviewed by: Comment Normal [facility] Comment on above: Result Comment: Wiley Buchanan Spanner Operator Performed at: WB Performed By: #### [id number] #### [facility] [address] [place] [address] Dr. Man Arroyo Specimen adequacy: Comment Normal [facility] Comment on above: Result Comment: Sati sfactory for evaluation. Endocervical and/or squamous metaplastic cells (endocervical component) are present. Performed at: WB Performed By: #### [id number] #### [facility] [address] [place] [address] Dr. Man Arroyo CBC AUTO DIFFon 06-27-2021 BASO # 0.0 103/ul Normal 0.0-0.1 [facility] Comment on above: Performed By: #### C BC #### [facility] [address] [place] [address] Dr. Man Arroyo Basophils/100 WBC (Bld) 0.6 % Normal 0.2-2.0 [facility] Comment on above: Performed By: #### C BC #### [facility] [address] [place] [address] Dr. Man Arroyo EO # 0.1 103/ul Normal 0.0-0.7 [facility] Comment on above: Performed By: #### C BC #### [facility] [address] [place] [address] Dr. Man Arroyo Eosinophils/100 WBC (Bld) 1.1 % Normal 0.9-7.0 [facility] Comment on above: Performed By: #### C BC #### [facility] [address] [place] [address] Dr. Man Arroyo Erythrocyte distribution width (RBC) [Ratio] 12.2 % Normal 11.0-15.0 [facility] Comment on above: Performed By: #### C BC #### [facility] [address] [place] [address] Dr. Man Arroyo Hematocrit (Bld) [Volume fraction] 43.3 % Normal 36.0-48.0 [facility] Comment on above: Performed By: #### C BC #### [facility] [address] [place] [address] Dr. Man Arroyo Hemoglobin (Bld) [Mass/Vol] 14.4 g/dL Normal 12.0-16.0 [facility] Comment on above: Performed By: #### C BC #### [facility] [address] [place] [address] Dr. Man Arroyo IG # 0.02 10e3/ul Normal 0.00-0.03 [facility] Comment on above: Performed By: #### C BC #### [facility] [address] [place] [address] Dr. Man Arroyo IG % 0.3 % Normal 0.0-0.5 [facility] Comment on above: Performed By: #### C BC #### [facility] [address] [place] [address] Dr. Man Arroyo LYMPH # 1.7 103/ul Normal 1.2-3.8 [facility] Comment on above: Performed By: #### C BC #### [facility] [address] [place] [address] Dr. Man Arroyo Lymphocytes/100 WBC (Bld) 27.7 % Normal 20.5-60.0 [facility] Comment on above: Performed By: #### C BC #### [facility] [address] [place] [address] Dr. Man Arroyo MANUAL DIFF REQ NO Normal [facility] Comment on above: Performed By: #### C BC #### [facility] [address] [place] [address] Dr. Man Arroyo MCH (RBC) [Entitic mass] 29.2 pg Normal 26.7-34.0 [facility] Comment on above: Performed By: #### C BC #### [facility] [address] [place] [address] Dr. Man Arroyo MCHC (RBC) [Mass/Vol] 33.3 g/dL Normal 29.9-35.2 [facility] Comment on above: Performed By: #### C BC #### [facility] [address] [place] [address] Dr. Man Arroyo MCV (RBC) [Entitic vol] 87.8 fL Normal 81.0-99.0 [facility] Comment on above: Performed By: #### C BC #### [facility] [address] [place] [address] Dr. Man Arroyo MONO # 0.5 103/ul Normal 0.3-0.8 [facility] Comment on above: Performed By: #### C BC #### [facility] [address] [place] [address] Dr. Man Arroyo Monocytes/100 WBC (Bld) 7.7 % Normal 1.7-12.0 [facility] Comment on above: Performed By: #### C BC #### [facility] [address] [place] [address] Dr. Man Arroyo NEUT # 3.9 103/ul Normal 1.4-6.5 [facility] Comment on above: Performed By: #### C BC #### [facility] [address] [place] [address] Dr. Man Arroyo Neutrophils/100 WBC (Bld) 62.6 % Normal 43.0-75.0 [facility] Comment on above: Performed By: #### C BC #### [facility] [address] [place] [address] Dr. Man Arroyo Platelet mean volume (Bld) [Entitic vol] 9.7 fL Normal 9.5-13.5 [facility] Comment on above: Performed By: #### C BC #### [facility] [address] [place] [address] Dr. Man Arroyo PLT 290 103/ul Normal 150-450 [facility] Comment on above: Performed By: #### C BC #### [facility] [address] [place] [address] Dr. Man Arroyo RBC 4.93 106/ul Normal 4.20-5.40 [facility] Comment on above: Performed By: #### C BC #### [facility] [address] [place] [address] Dr. Man Arroyo WBC 6.2 103/ul Normal 4.0-11.0 [facility] Comment on above: Performed By: #### C BC #### [facility] [address] [place] [address] Dr. Man Arroyo CULTURE URINEon 06-27-2021 CULTURE URINE Culture Observations: NO GROWTH Normal [facility] Comment on above: Performed By: #### C BC #### [facility] [address] [place] [address] Dr. Man Arroyo POTASSIUMon 06-27-2021 Potassium [Moles/Vol] 4.4 mmol/L Normal 3.5-5.1 [facility] Comment on above: Performed By: #### C BC #### [facility] [address] [place] [address] Dr. Man Arroyo PREG QUANT HCGon 06-27-2021 HCG QUANT 2 mIU/mL Normal [facility] Comment on above: Performed By: #### C BC #### [facility] [address] [place] [address] Dr. Man Arroyo HCG RANGE SEE BELOW Normal [facility] Comment on above: Result Comment: 5-50 0-1 WEEK 40-300 1-2 WEEKS 100-1,000 2-3 WEEKS 500-6,000 3-4 WEEKS 5,000-200,000 1-2 MONTHS 10,000-100,000 2-3 MONTHS 3,000-50,000 2ND TRIMESTER 1,000-50,000 3RD TRIMESTER Performed By: #### C BC #### [facility] [address] [place] [address] Dr. Man Arroyo UA (CLEAN/CATCH) MICROSCOPIC IF INDICATEon 06-27-2021 Bilirubin Ql (U) Negative Normal NEGATIVE [facility] Comment on above: Performed By: #### U ARMICR #### [facility] [address] [place] [address] Dr. Man Arroyo Clarity (U) CLEAR Normal CLEAR [facility] Comment on above: Performed By: #### U ARMICR #### [facility] [address] [place] [address] Dr. Man Arroyo Color (U) LT. YELLOW Normal YELLOW [facility] Comment on above: Performed By: #### U ARMICR #### [facility] [address] [place] [address] Dr. Man Arroyo Glucose Ql (U) Negative Normal NEGATIVE [facility] Comment on above: Performed By: #### U ARMICR #### [facility] [address] [place] [address] Dr. Man Arroyo Hemoglobin Ql (U) Negative Normal NEGATIVE [facility] Comment on above: Performed By: #### U ARMICR #### [facility] [address] [place] [address] Dr. Man Arroyo Ketones Ql (U) 15 mg/dl Abnormal NEGATIVE [facility] Comment on above: Performed By: #### U ARMICR #### [facility] [address] [place] [address] Dr. Man Arroyo LEUKOCYTES Negative Normal NEGATIVE [facility] Comment on above: Performed By: #### U ARMICR #### [facility] [address] [place] [address] Dr. Man Arroyo Nitrite Ql (U) Negative Normal NEGATIVE [facility] Comment on above: Performed By: #### U ARMICR #### [facility] [address] [place] [address] Dr. Man Arroyo pH (U) 7.5 [pH] Normal 5-9 [facility] Comment on above: Performed By: #### U ARMICR #### [facility] [address] [place] [address] Dr. Man Arroyo SPEC GRAVITY 1.020 Normal 1.005-<=1.025 [facility] Comment on above: Performed By: #### U ARMICR #### [facility] [address] [place] [address] Dr. Man Arroyo UA PROTEIN Negative Normal NEGATIVE/ TRACE [facility] Comment on above: Performed By: #### U ARMICR #### [facility] [address] [place] [address] Dr. Man Arroyo UR MICRO IND NOT INDICATED Normal [facility] Comment on above: Performed By: #### U ARMICR #### [facility] [address] [place] [address] Dr. Man Arroyo Urobilinogen Qn (U) 0.2 {Zoey'U}/dL Normal 0.2 - 1. 0 [facility] Comment on above: Performed By: #### U ARMICR #### [facility] [address] [place] [address] Dr. Man Arroy[facility] SARS-CoV-2 (COVID-19) RNA BEBE+probe Ql (Unsp spec) Not detected Normal NOT DETECTED [facility] Comment on above: Result Comment: This test is not yet approved or cleared by the [place] FDA. When there are no FDA-approved or cleared tests available, and other criteria are met, FDA can make tests available under an emergency access mechanism called an Emergency Use Authorization (EUA). The EUA for this test is supported by the [place] of Health and Human Service's (HHS's) declaration that circumstances exist to justify the emergency use of in vitro diagnostics for the detection and/or diagnosis of the virus that causes COVID-19. This EUA will remain in effect (meaning this test can be used) for the duration of the COVID-19 declaration justifying emergency of IVDs, unless it is terminated or revoked by FDA (after which the test may no longer be used). When diagnostic testing is negative, the possibility of a false negative should be considered in the context of a patient's recent exposures and the presence of clinical signs and symptoms consistent with SARS-CoV-2. Performed By: #### [facility] #### [facility] [address] [place] [address] Dr. Man Arroyo CHEMISTRYOrdered By: SYSTEM SYSTEM on 06-20-2021 Albumin [Mass/Vol] 4.5 g/dL Normal 3.3 - 5.0 gm/dL [facility] Albumin/Globulin [Mass ratio] 1.6 {ratio} Normal 1.1 - 2.2 [facility] ALP [Catalytic activity/Vol] 39 [iU]/d Normal 21 - 98 Int._Unit/L [facility] ALT No additional P-5'-P [Catalytic activity/Vol] 19 [iU]/d Normal 6 - 46 Int._Unit/L [facility] Anion gap [Moles/Vol] 13 mmol/L Normal 6 - 16 mEq/L [facility] AST [Catalytic activity/Vol] 18 [iU]/d Normal 5 - 43 Int._Unit/L [facility] Bilirubin [Mass/Vol] 0.6 mg/dL Normal 0.0 - 1 .1 mg/dL [facility] Bilirubin.direct [Mass/Vol] mg/dL Normal 0.1 - 0.4 mg/dL [facility] Bilirubin.indirect [Mass or moles/Vol] Unable to Calculate mg/dL Invalid Interpretation Code 0.1 - 0.9 mg/dL [facility] Calcium [Mass/Vol] 9.3 mg/dL Normal 8.9 - 11. 1 mg/dL [facility] Chloride [Moles/Vol] 104 mmol/L Normal 101 - 1 11 mmol/L [facility] CO2 [Moles/Vol] 24 mmol/L Normal 21 - 31 mmol/L [facility] Creatinine [Mass/Vol] 0.8 mg/dL Normal 0.5 - 1.3 mg/dL [facility] GFR/1.73 sq M.predicted among blacks MDRD (S/P/Bld) [Vol rate/Area] mL/min/1.73 m2 Normal >=59mL/min/1. 73 m2 [facility] S GFR/1.73 sq M.predicted among non-blacks MDRD (S/P/Bld) [Vol rate/Area] mL/min/1.73 m2 Normal >=59mL/min/1. 73 m2 [facility] S Globulin (S) [Mass/Vol] 2.8 g/dL Normal 1.4 - 4.0 gm/dL [facility] Glucose [Mass/Vol] 102 mg/dL Normal 55 - 199 mg/dL [facility] Lipase [Catalytic activity/Vol] 34 U/L Normal 13 - 58 unit/L [facility] Potassium [Moles/Vol] 3.6 mmol/L Normal 3.5 - 5.3 mmol/L [facility] Protein [Mass/Vol] 7.3 g/dL Normal 6.0 - 7.8 gm/dL [facility] Sodium [Moles/Vol] 137 mmol/L Normal 135 - 145 mmol/L [facility] Urea nitrogen [Mass/Vol] 12 mg/dL Normal 5 - 21 mg/dL [facility] Urea nitrogen/Creatinine [Mass ratio] 15 mg/mg Normal 10 - 20 [facility] HEMATOLOGYOrdered By: SYSTEM SYSTEM on 06-20-2021 Basophils/100 WBC (Bld) 0.8 % Normal 0.0 - 2.0 % [facility] HemeAutoSS Basophils/Leukocytes Auto (Bld) [Pure # fraction] 0.1 E9/L Normal 0.0 - 0.2 E9/L [facility]eAutoSS Eosinophils/100 WBC (Bld) 1.6 % Normal 0.0 - 8.0 % [facility]eAutoSS Eosinophils/Leukocyte s Auto (Bld) [Pure # fraction] 0.1 E9/L Normal 0.0 - 0.5 E9/L [facility]eAutoSS Lymphocytes/100 WBC (Bld) 24.6 % Normal 14.0 - 50.0 % [facility]eAutoSS Lymphocytes/Leukocyte s Auto (Bld) [Pure # fraction] 1.8 E9/L Normal 1.0 - 4.0 E9/L [facility]eAutoSS Monocytes/100 WBC (Bld) 9.2 % Normal 4.0 - 14.0 % [facility]eAutoSS Monocytes/Leukocytes Auto (Bld) [Pure # fraction] 0.7 E9/L Normal 0.2 - 1.0 E9/L [facility]eAutoSS Neutrophils/100 WBC (Bld) 63.8 % Normal 36.0 - 75.0 % [facility]eAutoSS Neutrophils/Leukocyte s Auto (Bld) [Pure # fraction] 4.7 E9/L Normal 2.0 - 7.5 E9/L [facility]eAutoSS HEMATOLOGYOrdered By: Jaime Angel on 06-20-2021 Erythrocyte distribution width (RBC) [Ratio] 13.6 % Normal 10.9 - 14.2 % [facility]eAutoSS Hematocrit (Bld) [Volume fraction] 40.5 % Normal 34.0 - 46.0 % [facility] Hemoglobin (Bld) [Mass/Vol] 13.7 g/dL Normal 12.0 - 16.0 gm/dL [facility] MCH (RBC) [Entitic mass] 29.2 pg Normal 27.0 - 34.0 pg [facility] MCHC (RBC) [Mass/Vol] 33.9 g/dL Normal 31.4 - 36.0 gm/dL [facility] MCV (RBC) [Entitic vol] 86.2 fL Normal 80.0 - 100.0 fL [facility] Platelet mean volume (Bld) [Entitic vol] 8.6 fL Normal 6.4 - 10.8 fL [facility]eAutoSS Platelets (Bld) [#/Vol] 232.0 E9/L Normal 150.0 - 500.0 E9/L [facility] RBC (Bld) [#/Vol] 4.7 E12/L Normal 4.3 - 5.9 E12/L [facility]eAuto[facility] WBC corrected for nucl RBC Auto (Bld) [#/Vol] 7.4 E9/L Normal 4.0 - 11.0 E9/L [facility] SEROLOGYOrdered By: Jaime hadley on 06-20-2021 HCG.beta subunit (U) [Moles/Vol] Negative Normal [facility] URINALYSISOrdered By: Jaime Angel on 06-20-2021 Bacteria LM Ql (Urine sed) 1+ /HPF Invalid Interpretation Code Trace/HPF [facility] UA Auto SS Bilirubin Ql (U) Negative (06/20/21 11:22 PM) Normal Negative [facility] UA Auto SS Clarity (U) Clear (06/20/21 11:22 PM) Normal Clear [facility] UA Auto SS Color (U) Yellow (06/20/21 11:22 PM) Normal Yellow [facility] UA Auto SS Epithelial cells.squamous LM.HPF (Urine sed) [#/Area] 0-2 /HPF Normal 0-2/HPF [facility] UA Aut o SS Glucose Test strip (U) [Mass/Vol] Negative (06/20/21 11:22 PM) Normal Negative [facility] UA Auto SS Hemoglobin Ql (U) Negative (06/20/21 11:22 PM) Normal Negative [facility] UA Auto SS Ketones (U) [Mass/Vol] Negative (06/20/21 11:22 PM) Normal Negative [facility] UA Auto SS Matthews.plasma/Lithiu m.RBC (Bld) [Mass ratio] 0-3 /HPF Normal 0-3/HPF [facility] UA Auto SS Nitrite Ql (U) Negative (06/20/21 11:22 PM) Normal Negative [facility] UA Auto SS pH (U) 6.0 *NA* (06/20/21 11:22 PM) Invalid Interpretation Code 5.0 - 9.0 [facility] UA Auto SS Protein (U) [Mass/Vol] Negative (06/20/21 11:22 PM) Normal Negative [facility] UA Auto SS Specific gravity (U) [Rel density] 1.020 *NA* (06/20/21 11:22 PM) Invalid Interpretation Code 1.005 - 1.030 [facility] UA Auto SS UA Spec Desc Clean Catch (06/20/21 11:22 PM) Normal [facility] UA Auto SS Urobilinogen Qn (U) [id number] {Zoey'U}/dL Normal 0.0 - 1.0 EU/dL [facility] UA Auto SS WBC Auto Ql (U) Trace *ABN* (06/20/21 11:22 PM) Invalid Interpretation Code Negative [facility] UA Auto SS WBC LM.HPF (Urine sed) [#/Area] 6-15 /HPF Invalid Interpretation Code 0-5/HPF [facility] UA Auto SS US PELVIS AND TRANSVAGon US PELVIS AND TRANSVAG EXAMINATION: US PELVIS AND TRANSVAG HISTORY: Pelvic and perineal pain COMPARISON: 01/29/2021 FINDINGS: Transabdominal and transvaginal images The uterus is normal in size, contour and echotexture measuring 7.7 x 6.4 x 4.4 cm. Uterus is retroflexed. No focal myometrial mass. The endometrium measures 7 mm, normal. The right ovary is normal in size, contour and echotexture measuring 4.9 x 1.7 x 2.4 cm. Normal resistive index of 0.6. The left ovary is normal in size and contour measuring 3.6 x 2.6 x 2.1 cm. Slightly irregular shaped cystic lesion measuring 1.8 cm. Punctate 3 mm hyper echogenicity, a calcification is favored. Normal color flow. Resistive index 0.27. IMPRESSION: 1.8 cm cystic lesion in the left ovary. Collapsing functional cyst favored Electronically authenticated by: MATT DELUCA Date: 2021-06-07 07:08 Normal [facility] CHLAMYDIA/GONOCOCCUS BEBE ( AB/URINE/PAPon 01-30-2021 Chlamydia trachomatis, BEBE Negative Normal Negative [facility] Comment on above: Performed By: #### C T/NGNA #### [facility] [address] [place], [place] [address] Dr. Man Arroyo Neisseria gonorrhoeae, BEBE Negative Normal Negative [facility] Comment on above: Performed By: #### C T/NGNA #### [facility] [address] [place] [address] [id number] [address] Man Arroyo US PELVIS AND TRANSVAGon US PELVIS AND TRANSVAG EXAMINATION: US PELVIS AND TRANSVAG HISTORY: Pelvic and perineal pain , right flank pain COMPARISON: No relevant comparison available. TECHNIQUE: Transabdominal and transvaginal sonographic examination. FINDINGS: UTERUS: Normal size and appearance. Uterus size: 7.3 x 3.4 x 5.6 cm ENDOMETRIUM: Normal homogeneous appearance. Endometrial thickness: 10 mm RIGHT OVARY: Normal size and appearance. Duplex Doppler demonstrates normal waveform and flow; resistive index 0.5. Ovary size: 3.3 x 1.6 x 2.7 cm LEFT OVARY: Normal size and appearance. Duplex Doppler demonstrates normal waveform and flow; resistive index 0.6. Ovary size: 2.2 x 1.2 x 2.5 cm CUL-DE-SAC: Unremarkable. No significant free fluid. BLADDER: Unremarkable. OTHER: None. IMPRESSION: 1. Normal pelvic ultrasound. No suspicious findings to account for patient's symptoms. Electronically authenticated by: SHARAD TREVIZO Date: 2021-01-29 16:10 Normal [facility] CBC AUTO DIFFon 01-26-2021 BASO # 0.1 103/ul Normal 0.0-0.1 [facility] Comment on above: Performed By: #### C BC #### [facility] [address] [place] [address] [address] Man Arroyo Basophils/100 WBC (Bld) 0.7 % Normal 0.2-2.0 [facility] Comment on above: Performed By: #### C BC #### [facility] [address] [place] [address] Dr. Man Arroyo EO # 0.1 103/ul Normal 0.0-0.7 [facility] Comment on above: Performed By: #### C BC #### [facility] [address] [place] [address] Dr. Man Arroyo Eosinophils/100 WBC (Bld) 1.0 % Normal 0.9-7.0 [facility] Comment on above: Performed By: #### C BC #### [facility] [address] [place] [address] Dr. Man Arroyo Erythrocyte distribution width (RBC) [Ratio] 12.5 % Normal 11.0-15.0 [facility] Comment on above: Performed By: #### C BC #### [facility] [address] [place] [address] Dr. Man Arroyo Hematocrit (Bld) [Volume fraction] 42.2 % Normal 36.0-48.0 [facility] Comment on above: Performed By: #### C BC #### [facility] [address] [place] [address] Dr. Man Arroyo Hemoglobin (Bld) [Mass/Vol] 14.0 g/dL Normal 12.0-16.0 [facility] Comment on above: Performed By: #### C BC #### [facility] [address] [place] [address] Dr. Man Arroyo IG # 0.02 10e3/ul Normal 0.00-0.03 [facility] Comment on above: Performed By: #### C BC #### [facility] [address] [place] [address] Dr. Man Arroyo IG % 0.2 % Normal 0.0-0.5 [facility] Comment on above: Performed By: #### C BC #### [facility] [address] [place] [address] Dr. Man Arroyo LYMPH # 2.7 103/ul Normal 1.2-3.8 [facility] Comment on above: Performed By: #### C BC #### [facility] [address] [place] [address] Dr. Man Arroyo Lymphocytes/100 WBC (Bld) 26.6 % Normal 20.5-60.0 [facility] Comment on above: Performed By: #### C BC #### [facility] [address] [place] [address] Dr. Man Arroyo MANUAL DIFF REQ NO Normal [facility] Comment on above: Performed By: #### C BC #### [facility] [address] [place] [address] Dr. Man Arroyo MCH (RBC) [Entitic mass] 29.0 pg Normal 26.7-34.0 [facility] Comment on above: Performed By: #### C BC #### [facility] [address] [place] [address] Dr. Man Arroyo MCHC (RBC) [Mass/Vol] 33.2 g/dL Normal 29.9-35.2 [facility] Comment on above: Performed By: #### C BC #### [facility] [address] [place] [address] Dr. Man Arroyo MCV (RBC) [Entitic vol] 87.6 fL Normal 81.0-99.0 [facility] Comment on above: Performed By: #### C BC #### [facility] [address] [place] [address] Dr. Man Arroyo MONO # 0.7 103/ul Normal 0.3-0.8 [facility] Comment on above: Performed By: #### C BC #### [facility] [address] [place] [address] Dr. Man Arroyo Monocytes/100 WBC (Bld) 7.0 % Normal 1.7-12.0 [facility] Comment on above: Performed By: #### C BC #### [facility] [address] [place] [address] Dr. Man Arroyo NEUT # 6.6 103/ul Critically high 1.4-6.5 [facility] Comment on above: Performed By: #### C BC #### [facility] [address] [place] [address] Dr. Man Arroyo Neutrophils/100 WBC (Bld) 64.5 % Normal 43.0-75.0 [facility] Comment on above: Performed By: #### C BC #### [facility] [address] [place] [address] Dr. Man Arroyo Platelet mean volume (Bld) [Entitic vol] 10.4 fL Normal 9.5-13.5 [facility] Comment on above: Performed By: #### C BC #### [facility] [address] [place] [address] Dr. Man Arroyo PLT 255 103/ul Normal 150-450 [facility] Comment on above: Performed By: #### C BC #### [facility] [address] [place] [address] Dr. Man Arroyo RBC 4.82 106/ul Normal 4.20-5.40 [facility] Comment on above: Performed By: #### C BC #### [facility] [address] [place] [address] Dr. Man Arroyo WBC 10.2 103/ul Normal 4.0-11.0 [facility] Comment on above: Performed By: #### C BC #### [facility] [address] [place] [address] ABD/PELV W CONon 01-27-[address] ABD/PELV W CON EXAMINATION: CT ABD/PELV W CON HISTORY: UNSPECIFIED ABDOMINAL PAIN COMPARISON: None. TECHNIQUE: Axial CT images through the abdomen and pelvis were obtained after the intravenous administration of 100 mL Omnipaque 300 contrast. Coronal and sagittal reformats were obtained. Dose reduction techniques were achieved by using automated exposure control and/or adjustment of mA and/or kV according to patient size and/or use of iterative reconstruction technique. FINDINGS: The visualized portions of the lung bases are clear. Abdomen: The liver and spleen enhance homogeneously without focal lesion. There is no intra or extrahepatic biliary duct dilatation. There is possible cholelithiasis without evidence of acute inflammation. There is a subcentimeter hypodensity in the left kidney which is too small to characterize by CT size criteria. Otherwise, the pancreas, adrenal glands, kidneys, and bowel loops, including the appendix, are unremarkable. There is no mesenteric or retroperitoneal lymphadenopathy. There is a small fat-containing umbilical hernia. Pelvis: The bladder demonstrates wall thickening. The rectum is unremarkable. There is no iliac or inguinal lymphadenopathy. The uterus is present. There is a right ovarian hemorrhagic cyst. The left ovary appears within normal limits by CT. There is a small amount of free fluid in the pelvis. Bone windows show no aggressive osseous lesions. IMPRESSION: 1. Right ovarian hemorrhagic cyst with a small amount of free fluid in the pelvis. 2. Possible cholelithiasis without evidence of acute inflammation. 3. Normal appendix. 4. Urinary bladder wall thickening. Please correlate with urinalysis for infection. Electronically authenticated by: Renee URRUTIA Date: 2021-01-26 03:42 Normal [facility] CULTURE URINEon 01-26-2021 CULTURE URINE Culture Observations: No growth Normal [facility] Comment on above: Performed By: #### C BC #### [facility] [address] [place] [address] [address] Man Arroyo ER URINE PROFILEon 1 Bilirubin Ql (U) Negative Normal NEGATIVE [facility] Comment on above: Performed By: #### E CHOLO ESCAMILLA UMICRO #### [facility] [address] [place] [address] [address] Man Arroyo Clarity (U) CLEAR Normal CLEAR [facility] Comment on above: Performed By: #### E RUR, PREGU, UMICRO #### [facility] [address] [place] [address] [address] Man Arroyo Color (U) LT. YELLOW Normal YELLOW [facility] Comment on above: Performed By: #### E RUR, PREGU, UMICRO #### [facility] [address] [place] [address] [address] Man Arroyo ERUAHElvira A micrscopic examination will be performed if indicated. Normal [facility] Comment on above: Performed By: #### E RUR, PREGU, UMICRO #### [facility] [address] [place] [address] [address] Man Arroyo Glucose Ql (U) Negative Normal NEGATIVE [facility] Comment on above: Performed By: #### Yessenia RUR, PREGU, UMICRO #### [facility] [address] [place] [address] [address] Man Arroyo Hemoglobin Ql (U) Negative Normal NEGATIVE [facility] Comment on above: Performed By: #### Yessenia RUR PREGU, UMICRO #### [facility] [address] [place] [address] [address] Man Arroyo Ketones Ql (U) Negative Normal NEGATIVE [facility] Comment on above: Performed By: #### Yessenia RUR PREGU, UMICRO #### [facility] [address] [place] [address] [address] Man Arroyo LEUKOCYTES SMALL Abnormal NEGATIVE [facility] Comment on above: Performed By: #### Yessenia RUR PREGU, UMICRO #### [facility] [address] [place] [address] [address] Man Arroyo Nitrite Ql (U) Negative Normal NEGATIVE [facility] Comment on above: Performed By: #### E RUR, PREGU, UMICRO #### [facility] [address] [place] [address] [address] Man Arroyo pH (U) 6.0 [pH] Normal 5-9 [facility] Comment on above: Performed By: #### Yessenia RUR, PREGU, UMICRO #### [facility] [address] [place] [address] [address] Man Arroyo SPEC GRAVITY 1.020 Normal 1.005-<=1.025 [facility] Comment on above: Performed By: #### CHOLO MONIQUE UMICRO #### [facility] [address] [place] [address] Dr. Man Arroyo UA PROTEIN Negative Normal NEGATIVE/ TRACE [facility] Comment on above: Performed By: #### E RUCHOLO Youngblood, UMICRO #### [facility] [address] [place] [address] Dr. Man Arroyo UR MICRO IND INDICATED Normal [facility] Comment on above: Performed By: #### E CHOLO ESCAMILLA, UMICRO #### [facility] [address] [place] [address] Dr. Man Arroyo Urobilinogen Qn (U) 0.2 {Zoey'U}/dL Normal 0.2 - 1. 0 [facility] Comment on above: Performed By: #### NUNU MONIQUEU, UMICRO #### [facility] [address] [place] [address] Dr. Man Arroyo LIPASEon 01-26-2021 Lipase [Catalytic activity/Vol] 89.0 U/L Normal 23.0-300.0 [facility] Comment on above: Performed By: #### L IPA, CMP #### [facility] [address] [place] [address] Dr. Man Arroyo URon 01-26-2021 , QUAL Negative Normal NEGATIVE [facility] Comment on above: Performed By: #### E RUNUNU YoungbloodU, UMICRO #### [facility] [address] [place] [address] Dr. Man Arroyo PROF 14(COMP METB)on 021 Albumin [Mass/Vol] 4.2 g/dL Normal 3.5-5.0 [facility] Comment on above: Performed By: #### L IPA, CMP #### [facility] [address] [place] [address] Dr. Man Arroyo Albumin/Globulin [Mass ratio] 1.2 {ratio} Normal [facility] Comment on above: Performed By: #### L IPA, CMP #### [facility] [address] [place] [address] [address] Man Arroyo ALP [Catalytic activity/Vol] 38 U/L Normal 38-126 [facility] Comment on above: Performed By: #### L IPA, CMP #### [facility] [address] [place] [address] [address] Man Arroyo ALT [Catalytic activity/Vol] 29 U/L Normal 9-52 [facility] Comment on above: Performed By: #### L IPA, CMP #### [facility] [address] [place] [address] [address] Man Arroyo Anion gap [Moles/Vol] 12.5 mmol/L Normal [facility] Comment on above: Performed By: #### L IPA, CMP #### [facility] [address] [place] [address] Dr. Man Arroyo AST [Catalytic activity/Vol] 17 U/L Normal 14-36 [facility] Comment on above: Performed By: #### L IPA, CMP #### [facility] [address] [place] [address] [address] Man Arroyo Bilirubin [Mass/Vol] 0.7 mg/dL Normal 0.2-1.3 [facility] Comment on above: Performed By: #### L IPA, CMP #### [facility] [address] [place] [address] [address] Man Arroyo Calcium [Mass/Vol] 9.1 mg/dL Normal 8.4-10.2 [facility] Comment on above: Performed By: #### L IPA, CMP #### [facility] [address] [place] [address] [address] Man Arroyo Chloride [Moles/Vol] 102 mmol/L Normal 98-107 [facility] Comment on above: Performed By: #### L IPA, CMP #### [facility] [address] [place] [address] [address] Man Arroyo CO2 [Moles/Vol] 26.5 mmol/L Normal 22.0-30.0 [facility] Comment on above: Performed By: #### L IPA, CMP #### [facility] [address] [place] [address] [address] Man Arroyo Creatinine [Mass/Vol] 0.85 mg/dL Normal 0.52-1.04 [facility] Comment on above: Performed By: #### L IPA, CMP #### [facility] [address] [place] [address] [address] Man Arroyo EGFR-AF DANISH >60 Normal >=60 [facility] Comment on above: Performed By: #### L IPA, CMP #### [facility] [address] [place] [address] [address] Man Arroyo EGFR-NON AF DANISH >60 Normal >=60 [facility] Comment on above: Performed By: #### L IPA, CMP #### [facility] [address] [place] [address] [address] Man Arroyo Globulin (S) [Mass/Vol] 3.5 g/dL Normal [facility] Comment on above: Performed By: #### L IPA, CMP #### [facility] [address] [place] [address] [address] Man Arroyo Glucose [Mass/Vol] 122 mg/dL Critically high 74-106 [facility] Comment on above: Performed By: #### L IPA, CMP #### [facility] [address] [place] [address] [address] Man Arroyo Potassium [Moles/Vol] 3.0 mmol/L Critically low 3.4-5.0 [facility] Comment on above: Performed By: #### L IPA, CMP #### [facility] [address] [place] [address] [address] Man Arroyo Protein [Mass/Vol] 7.7 g/dL Normal 6.1-8.2 [facility] Comment on above: Performed By: #### L IPA, CMP #### [facility] [address] [place] [address] [address] Man Arroyo Sodium [Moles/Vol] 138 mmol/L Normal 137-145 [facility] Comment on above: Performed By: #### L IPA, CMP #### [facility] [address] [place] [address] [address] Man Arroyo Urea nitrogen [Mass/Vol] 10.0 mg/dL Normal 7.0-17.0 [facility] Comment on above: Performed By: #### L IPA, CMP #### [facility] [address] [place] [address] [address] Man Arroyo Urea nitrogen/Creatinine [Mass ratio] 11.8 mg/mg Normal [facility] Comment on above: Performed By: #### L IPA, CMP #### [facility] [address] [place] [address] [address] Man Arroyo URINE MICROSCOPIC ONLYon BACTERIA SMALL Abnormal NONE SEEN [facility] Comment on above: Performed By: #### C BC #### [facility] [address] [place] [address] Dr. Man Arroyo Bacteria identified Cx Nom (U) INDICATED Normal [facility] Comment on above: Performed By: #### C BC #### [facility] [address] [place] [address] Dr. Man Arroyo CAST NONE SEEN Normal NONE SEEN [facility] Comment on above: Performed By: #### C BC #### [facility] [address] [place] [address] Dr. Man Arroyo Crystals LM Nom (Urine sed) NONE SEEN Normal NONE SEEN [facility] Comment on above: Performed By: #### C BC #### [facility] [address] [place] [address] Dr. Man Arroyo Epithelial cells LM Ql (Urine sed) FEW Abnormal NONE SEEN /RARE [facility] Comment on above: Performed By: #### C BC #### [facility] [address] [place] [address] Dr. Man Arroyo MUCOUS NONE SEEN Normal NONE SEEN [facility] Comment on above: Performed By: #### C BC #### [facility] [address] [place] [address] Dr. Man Arroyo RBC NONE SEEN Abnormal 0-2 The [facility] Comment on above: Performed By: #### C BC #### [facility] [address] [place] [address] Dr. Man Arroyo WBC 0-2 Abnormal NONE SEEN The [facility] Comment on above: Performed By: #### C BC #### [facility] [address] [place] [address] Dr. Man Arroyo WET PREPon 01-26-2021 CLUE CELLS NONE SEEN Normal NONE SEEN The [facility] Comment on above: Performed By: #### C BC #### [facility] [address] [place] [address] Dr. Man Arroyo FUNGAL ELEMENTS NONE SEEN Normal NONE SEEN The [facility] Comment on above: Performed By: #### C BC #### [facility] [address] [place] [address] Dr. Man Arroyo RBC -WET PREP NONE SEEN Normal NONE SEEN The [facility] Comment on above: Performed By: #### C BC #### [facility] [address] [place] [address] Dr. Man Arroyo TRICHOMONAS NONE SEEN Normal NONE SEEN The [facility] Comment on above: Performed By: #### C BC #### [facility] [address] [place] [address] Dr. Man Arroyo WBC- WET PREP MODERATE Abnormal NONE SEEN The [facility] Comment on above: Performed By: #### C BC #### [facility] [address] [place] [address] Dr. Man Arroyo WET PREP BACTERIA FEW Abnormal NONE SEEN The [facility] Comment on above: Performed By: #### C BC #### [facility] [address] [place] [address] Dr. Man Lee 10-14-2020 OREN Telephone (XAVIER) FE LINTON ([id number]) 1980 F Date Time Provider Department 10/14/20 NO PCP KRYSTENY During your visit today, we recorded the following information about you: Tyesha Ponce 10/14/2020 2:11 PM Signed Pt is not established at [facility] or within [facility]. Call received from Brooke computer processing scheduler at Dr Garrido's office. Brooke is asking if a VOTING MACHINE MECHANIC provider at [facility] office is able to evaluate and treat vulvodynia. Advised will forward message to Dr Strong who is telephone coin box collector for office to review and advise if pt may schedule with washcloth folder provider or if needs to see pelvic floor VOTING MACHINE MECHANIC specialist. Dr Garrido's office call back # is [phone]. ADILENE Bauman MD 10/14/2020 2:18 PM Signed If has diagnosis of vulvodynia should schedule with urogyn Lisa Shoemaker RN 10/14/2020 2:41 PM Signed Call placed to Brooke and providers message reviewed with Brooke who verbalized understanding Lisa Shoemaker RN Allergies As of Date: 10/14/2020 (Not on File) Date Reviewed: Never Reviewed Reason for Visit: vulvodynia [Other] Problem List As Of Date: 10/14/2020 (None) Encounter Status:Closed by LISA SHOEMAKER RN on 10/14/20 Normal [facility] Vital Signs Date Time Vital Sign Value Performing Clinician Nicole contreras 02-09-2023 16:13-0500 Blood Pressure Location Reanna NEW [facility] 02-09-2023 16:13-0500 Diastolic blood pressure 81 mm[Hg] Reanna NEW [facility] 02-09-2023 16:13-0500 Heart rate 80 /min Reanna SHETTYMYRON [facility] 02-09-2023 16:13-0500 SaO2% (BldA) [Mass fraction] 97 % Reanna ROBUCK [facility] 02-09-2023 16:13-0500 Systolic blood pressure 115 mm[Hg] Reanna ROBUCK [facility] 11-10-2022 16:42-0400 Diastolic blood pressure 85 mm[Hg] Reanna ROBUCK [facility] 11-10-2022 16:42-0400 Heart rate 68 /min Reanna ROBUCK [facility] 11-10-2022 16:42-0400 SaO2% (BldA) [Mass fraction] 100 % Reanna ROBUCK [facility] 11-10-2022 16:42-0400 Systolic blood pressure 135 mm[Hg] Reanna ROBUCK [facility] 07-03-2021 13:42-0400 Blood Pressure Location Reanna ROBUCK [facility] 07-03-2021 13:42-0400 Diastolic blood pressure 82 mm[Hg] Reanna ROBUCK [facility] 07-03-2021 13:42-0400 Heart rate 87 /min Reanna ROBUCK [facility] 07-03-2021 13:42-0400 SaO2% (BldA) [Mass fraction] 98 % Renana ROBUCK [facility] 07-03-2021 13:42-0400 Systolic blood pressure 114 mm[Hg] Reanna ROBUCK [facility] 06-21-2021 01:11-0400 Body temperature 98.42 [degF] Shen Mayda [place] 06-21-2021 01:11-0400 Diastolic blood pressure 81 mm[Hg] Shen Mayda [place] 06-21-2021 01:11-0400 Heart rate 64 /min Shen Mayda [place] 06-21-2021 01:11-0400 Mean blood pressure 92 mm[Hg] Shen Mayda [place] 06-21-2021 01:11-0400 Respiratory rate 16 /min Shen Mayda [place] 06-21-2021 01:11-0400 SaO2% (BldA) [Mass fraction] 98 % Shen Mayda [place] 06-21-2021 01:11-0400 Systolic blood pressure 115 mm[Hg] Shen Mayda [place] 06-21-2021 00:21-0400 Body temperature 98.42 [degF] Shen Mayda [place] 06-21-2021 00:21-0400 Diastolic blood pressure 85 mm[Hg] Shen Mayda [place] 06-21-2021 00:21-0400 Heart rate 72 /min Shen Mayda [place] 06-21-2021 00:21-0400 Mean blood pressure 96 mm[Hg] Shen Mayda [place] 06-21-2021 00:21-0400 Respiratory rate 16 /min Shen Mayda [place] 06-21-2021 00:21-0400 SaO2% (BldA) [Mass fraction] 99 % Shen Mayda [place] 06-21-2021 00:21-0400 Systolic blood pressure 117 mm[Hg] Shen Mayda [place] 06-20-2021 22:58-0400 Body temperature 97.88 [degF] Shen Mayda [place] 06-20-2021 22:58-0400 Diastolic blood pressure 87 mm[Hg] Shen Mayda [place] 06-20-2021 22:58-0400 Heart rate 81 /min Shen Mayda [place] 06-20-2021 22:58-0400 Respiratory rate 16 /min Shen Mayda [place] 06-20-2021 22:58-0400 SaO2% (BldA) [Mass fraction] 99 % Shen Mayda [place] 06-20-2021 22:58-0400 Systolic blood pressure 134 mm[Hg] Shen Mayda [place] Encounters Encounter Date Encounter Type Care Provider Facility Start: 02-09-2023 End: 02-10-2023 ambulatory DEGREASING SOLUTION MIXER Reanna NEW Facility:[facility] Start: 02-09-2023 End: 02-09-2023 Patient encounter procedure Reanna NEW [facility] Start: 11-11-2022 End: 11-12-2022 ambulatory DEGREASING SOLUTION MIXER Reanna NEW Facility:[facility] Start: 11-11-2022 End: 11-11-2022 Patient encounter procedure Reanna NEW [place] Start: 11-10-2022 End: 11-11-2022 ambulatory CED NEW Facility:[facility] Start: 11-10-2022 End: 11-10-2022 Patient encounter procedure Reanna NEW [facility] [place] Start: 08-13-2022 ambulatory [place] Fac ility:[facility] Start: 08-11-2022 ambulatory CED NEW Facili ty:[facility] Start: 08-11-2022 End: 08-12-2022 ambulatory [place] S[place] Facility:[facility] Start: 06-09-2022 End: 06-09-2022 Subsequent hospital visit by physician Cyndie Rodriguez PTA [facility] Comment on above: Canceled (Patient) Start: 06-03-2022 End: 06-04-2022 ambulatory [facility] Start: 06-03-2022 End: 06-03-2022 Subsequent hospital visit by physician Rhonda Fields PT [facility] Start: 05-27-2022 End: 05-28-2022 ambulatory [facility] Start: 05-27-2022 End: 05-27-2022 Subsequent hospital visit by physician Rhonda Fields PT [facility] Start: 05-01-2022 End: 05-02-2022 ambulatory ANABELA BOYD [facility] Start: 05-01-2022 End: 05-01-2022 Subsequent hospital visit by physician Fernando Garrido MD Work Phone: [facility] Comment on above: Vaginal discharge; Wilber's gland cyst Start: 03-16-2022 End: 03-17-2022 ambulatory [facility] Start: 12-19-2021 End: 12-20-[address] FERNANDO GARRIDO Facility:[facility] Start: 12-08-2021 End: 12-08-[address] FERNANDO GARRIDO Facility:[facility] Start: 07-03-2021 End: 07-03-2021 Patient encounter procedure Reanna NEW [facility] Start: 06-27-2021 Encounter for preprocedural laboratory examination DR FERNANDO GARRIDO [facility] Start: 06-27-2021 End: 06-27-[address] FERNANDO GARRIDO Facility:[facility] Start: 06-26-2021 End: 06-26-2021 Patient encounter procedure Daniela Laughlin [facility] Start: 06-25-2021 End: 06-26-[address] FERNANDO GARRIDO Facility:[facility] Start: 06-25-2021 End: 06-26-2021 Encounter for preprocedural laboratory examination DR FERNANDO GARRIDO Facility:[facility] Start: 06-20-2021 End: 06-21-2021 Emergency department patient visit Shen Ohara [place] Start: 06-06-2021 End: 06-07-[address] Matt Deluca Facility:[facility] Start: 01-29-2021 End: 01-30-[address] FERNANDO GARRIDO Facility:[facility] Start: 01-25-2021 End: 01-26-2021 ambulatory NOLA PHAM Facility:[facility] Start: 10-14-2020 End: 10-14-2020 Telephone encounter Wiley Singh MD Work Phone: Obstetrics/Gynecolog y Comment on above: 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 Procedures Date Procedure Procedure Detail Performing Clinician Start: 05-01-2022 Iadna brandon specie s direct probe tq Anabela Boyd DO Work Phone: Ablation - action (qualifier value) Shen Ohara Comment on above: uterine Plan of Treatment Date Care Activity Detail Author Start: 09-29-2022 Influenza vaccination Flu vacc ine (Season Ended) [facility] Start: 06-09-2022 End: 06-09-2022 Patient encounter procedure [facility]aster Supervisor [place] Start: 06-03-2022 End: 06-03-2022 Patient encounter procedure 06/03/2022 Appointment Physical Therapy Rhonda Fields, PT [facility] Start: 05-18-2022 End: 05-18-2022 Telephone encounter 05/18/2022 Scheduled Telephone Encounter Obstetrics and Gynecology Anabela Boyd, DO [address] [place] [address] [facility] [place] Start: 09-29-2021 Influenza vaccination Flu vaccine (# 1) [facility] Start: 10-30-2020 Influenza vaccination INFLUENZA (#1) [facility] Start: 2020 Lipid panel Lipids [facility] Start: 2020 Mammography MAMMOGRAM [facility] Start: 12-05-2014 PAP TESTING PAP TESTING [facility] Start: 2010 HPV TESTING HPV TESTING [facility] Start: 2010 Screening for malign ant neoplasm of cervix [facility] Start: 2001 Screening for malign ant neoplasm of cervix Pap smear [facility] Start: 07-14-1999 DTaP/Tdap/Td vaccine (1 - Tdap) DTaP/Tdap/Td vaccine (1 - Tdap) [facility] Start: 07-14-1999 Urine microalbumin profile DTAP,TDAP,TD (1 - Tdap) [facility] Start: 1998 HEPATITIS C SCREENING HEPATITIS C [facility] Start: 1998 Hepatitis C screening Hepatitis C sc [facility] Start: 1998 HIV SCREENING HIV SCREENING [facility] Start: 07-14-1995 HIV screening HIV screen [facility] Start: 1992 Adult depression screening assessment DEPRESSION SCREENING [facility] Start: 1992 COVID-19 VACCINE (1) COVID-19 VACCIN E (1) [facility] Start: 1992 Depression Screen Depression Screen [facility] Start: 1981 Varicella vaccine (1 of 2 - 2-dose childhood series) Varicella vaccine (1 of 2 - 2-dose childhood series) [facility] Start: 01-13-1981 COVID-19 Vaccine (#1) COVID-19 Vacci ne (#1) [facility] End: 05-01-2022 Culture, Ureaplasma/Mycoplasma hominis [facility] Work Phone: Comment on above: 1 Occurrences starti ng 05/01/2022 until 05/01/2022 Immunizations Immunization Date Immunization Notes Care Provider Tyrell castellon NEGATED: Highlighted row has not occurred!11-10-2022 influenza virus vaccine, unspecified formulation Reanna NEW [facility] Payers Date Payer Category Payer Private Health Insurance 2018 Private Health Insurance [id number] 1980 Unknown [id number] 2.16.84 [id number] 1980 Unknown [id number] 2.16.84 [id number] 1980 Unknown [id number] 2.16.84 [id number] 1980 Unknown [id number] 2.16.84 [id number] 1980 Unknown [id number] 2.16.84 [id number] 1980 Unknown [id number] 2.16.84 [id number] 1980 Unknown [id number] 2.16.84 [id number] 1980 Unknown [id number] 2.16. [id number] 1980 Unknown [id number] 2.16. [id number] 1980 Unknown [id number] 2.16. [id number] 1980 Unknown [id number] 2.16. [id number] 1980 Unknown [id number] 2.16.8 40.1.278116.3.579.2.727 1980 Unknown [id number] 2.16.8 40.1.425753.3.579.2.727 1980 Unknown [id number] 2.16.8 40.1.922112.3.579.2.727 1980 Unknown [id number] 2.16.8 40.1.720267.3.579.2.727 1980 Unknown [id number] 2.16.8 40.1.210825.3.579.2.727 1980 Unknown [id number] 2.16.8 [id number] 1959 Private Health Insurance [id number] Social History Date Type Detail [facility] Start: 1980 Sex Assigned At Not on file [facility] Start: 06-20-2021 End: 02-09-2023 Tobacco smoking status Never smoked tobacco (finding) [place] Sex Assigned At Female [place] Tobacco smoking status Never [facility] Start: 03-16-2022 Tobacco use and exposure Smokeless tobacco non-user [employer] Phone: Start: 05-01-2022 End: 05-18-2022 Alcohol intake Ex-drinker (finding) [employer] Phone: Start: 03-16-2022 Alcohol Comment social [employer] Phone: Clinical Notes 10-14-2020 to 11-10-2022 Note Date & Type Note Facility 11-10-2022 Hospital Discharg e instructions Follow Up Care 11/10/2022 17:25:49 With:Reanna NEW CNP Address: [address] [place] [id number]- When: only if needed [facility] 10-27-2022 Hospital Discharg e instructions Follow Up Care 10/27/2022 15:30:44 With:Reanna NEW CNP Address: [address] [place], [place] [id number]- When:Within 3 Month(s) [facility] 07-02-2021 [facility] Discharg e instructions Follow Up Care 07/02/2021 15:04:43 With:Reanna NEW CNP Address: [address] [place] [address]- When: only if needed With:Reanna NEW CNP Address: [address] [place], [place] [id number]- When: only if needed [facility] 06-27-2021 Note The [place], [place] NAME: FE LINTON DATE OF : MEDICAL REC#: [id number] SALES REPRESENTATIVE MARINE SUPPLIES: [address] [facility] TRANSADMIT DATE: 06/27/2021 09:23:00 INDUCTION MACHINE SETTER DATE: 06/28/2021 00:00 DICTATING PHYSICIAN: FERNANDO GARRIDO DICTATION DATE: 06/27/2021 12:00 OPERATIVE NOTE OPERATION DATE: 06/27/2021 PROCEDURE: Diagnostic laparoscopy. PREOPERATIVE DIAGNOSIS: Pelvic pain. POSTOPERATIVE DIAGNOSIS: Pelvic pain. ANESTHESIA: General. SURGEON: Fernando Garrido D.O. VETERINARY LABORATORY DIAGNOSTICIAN: ASHLEY Goins. URINE OUTPUT: Yellow and clear. BLOOD LOSS: 5 mL. SPECIMEN: None. FINDINGS: Left ovarian cyst. Questionable endometriosis posterior cul-de-sac. Ligaclips seen attached to the tube on the patient's left side. Otherwise, adenomyotic appearing uterus, normal right ovary and tube, normal appendix. PROCEDURE: The patient was taken back to the Operating Room where she was placed in dorsal lithotomy position after given general anesthesia. The patient was prepped and draped in normal sterile fashion. A sponge stick was placed into the patient's vagina. Attention was turned to the patient's abdomen, where a small umbilical incision was made. The fascia was tented using Last clamps and the fascia was entered sharply. Confirmation of intraabdominal placement of the 10 mm port was confirmed under direct visualization using a laparoscope. The patient's abdomen was then insufflated using CO2 gas with approximately 4 liters. A second port was placed suprapubically two fingerbreadths above the symphysis pubis, this was done under direct visualization with a 5 mm port. Survey of the patient's abdomen demonstrated normal liver and gallbladder. Survey of the patient's pelvic anatomy demonstrated normal appearing rt ovary and tube, absent lt tube and ovary, ligaclips seen in broad ligament and were removed. normal appearing uterus. posterior culdesac endometrial implants could be noted, no evidence of any pelvic disease was seen, normal appearing pelvic cavity. All instruments were removed from the patient's abdomen. The patient's abdomen was insufflated using CO2 gas. The patient tolerated the procedure well. Sponge stick was removed from the patient's vagina. The patient's infraumbilical fascia was closed using #0 Vicryl on a GI needle. The patient's skin was closed suprapubically and infraumbilically using 4-0 Vicryl. The patient tolerated the procedure well. Sponge, lap and needle counts were correct x 2. The patient taken to Recovery Room in stable condition. Electronically Authenticated and Edited by: Fernando Garrido DO on 07/06/2021 12:29 PM EDT IF Signed and Approved by: DR FERNANDO GARRIDO . 07/06/2021 12:29:00 [facility] 06-21-2021 Hospital Discharg e instructions Patient Education 06/21/2021 01:16:24 Abdominal Pain, Adult Abdominal Pain, Adult Pain in the abdomen (abdominal pain) can be caused by many things. Often, abdominal pain is not serious and it gets better with no treatment or by being treated at home. However, sometimes abdominal pain is serious. Your health care provider will ask questions about your medical history and do a physical exam to try to determine the cause of your abdominal pain. Follow these instructions at home: Medicines Take xxcg-pbb-viccmrl and prescription medicines only as told by your health care provider. Do not take a laxative unless told by your health care provider. General instructions Watch your condition for any changes. Drink enough fluid to keep your urine pale yellow. Keep all follow-up visits as told by your health care provider. This is important. Contact a health care provider if: Your abdominal pain changes or gets worse. You are not hungry or you lose weight without trying. You are constipated or have diarrhea for more than 2 3 days. You have pain when you urinate or have a bowel movement. Your abdominal pain wakes you up at night. Your pain gets worse with meals, after eating, or with certain foods. You are vomiting and cannot keep anything down. You have a fever. You have blood in your urine. Get help right away if: Your pain does not go away as soon as your health care provider told you to expect. You cannot stop vomiting. Your pain is only in areas of the abdomen, such as the right side or the left lower portion of the abdomen. Pain on the right side could be caused by appendicitis. You have bloody or black stools, or stools that look like tar. You have severe pain, cramping, or bloating in your abdomen. You have signs of dehydration, such as: ?Dark urine, very little urine, or no urine. ?Cracked lips. ?Dry mouth. ?Sunken eyes. ?Sleepiness. ?Weakness. You have trouble breathing or chest pain. Summary Often, abdominal pain is not serious and it gets better with no treatment or by being treated at home. However, sometimes abdominal pain is serious. Watch your condition for any changes. Take qlwd-hjd-bliponw and prescription medicines only as told by your health care provider. Contact a health care provider if your abdominal pain changes or gets worse. Get help right away if you have severe pain, cramping, or bloating in your abdomen. This information is not intended to replace advice given to you by your health care provider. Make sure you discuss any questions you have with your health care provider. Document Released: 11/25/2005 Document Revised: 06/26/2019 Document Reviewed: 06/26/2019 [employer] Patient Education 2019 [employer]. Follow Up Care 06/20/2021 22:57:25 With:Yolanda CHEUNG Address: [place] [address] Business (1) When:06/24/2021 [place] 06-20-2021 Evaluation + Plan note Extrac katlyn from: Title:ED Note Author:Shen Ohara DO Date :06/20/21 Acute UTI (N39.0: Urinary tr act infection, site not specified) AP (abdominal pain) (R10.9: Unspecified abdominal pain) Orders: cephalexin, 500 mg = 1 cap(s), Cap, Oral, Once, Stop date 06/21/21 1:04:00 EDT, STAT, Start date 06/21/21 1:04:00 EDT, 06/21/21 1:04:00 EDT cephalexin, 500 mg = 1 cap(s), Oral, q12hr, X 5 day(s), # 10 cap(s), Refills(s) 0, Pharmacy: [facility], 170, cm, 06/20/21 23:04:00 EDT, Height/Length Dosing, 64.3, kg, 06/20/21 23:04:00 EDT, Weight Dosing famotidine, 10 mg = 1 tab(s), Oral, BID, X 14 day(s), # 28 tab(s), Refills(s) 0, Pharmacy: [facility], 170, cm, 06/20/21 23:04:00 EDT, Height/Length Dosing, 64.3, kg, 06/20/21 23:04:00 EDT, Weight Dosing famotidine, 20 mg = 1 tab(s), Tab, Oral, Once, Stop date 06/21/21 1:05:00 EDT, STAT, Start date 06/21/21 1:05:00 EDT, 06/21/21 1:05:00 EDT Automated Diff Basic Metabolic Panel CBC w/ Auto Diff CT Abdomen/Pelvis w/ Contrast eGFR Hepatic Function Panel Lipase Level U Beta Hcg Qual UA With Cult Reflex Urine Culture Diagnostic Tests Pending * Urine Culture 06/20/21 [place]08-16-2021 Miscellaneous Notes* Telephone Encounter - Lisa Shoemaker RN - 10/14/2020 2:40 PM EDT Call placed to Brooke and providers message reviewed with Brooke who verbalized understanding Lisa Shoemaker RN * Telephone Encounter - Daniela Strong MD - 10/14/2020 2:17 PM EDT If has diagnosis of vulvodynia should schedule with urogyn * Telephone Encounter - Tyesha Ponce - 10/14/2020 2:08 PM EDT Pt is not established at [facility] or within [facility]. Call received from Brooke computer processing scheduler at Dr Garrido's office. Brooke is asking if a VOTING MACHINE MECHANIC provider at [facility] office is able to evaluate and treat vulvodynia. Advised will forward message to Dr Strong who is telephone coin box collector for office to review and advise if pt may schedule with washcloth folder provider or if needs to see pelvic floor VOTING MACHINE MECHANIC specialist. Dr Garrido's office call back # is [phone]. Tyesha Ponce RN [facility] Future Appointments Appointment Date:02/09/2023 04:20:00 PM Scheduled Provider:Reanna NEW CNP Location:[facility] Appointment Type: Open Future Scheduled Tests Laboratory* Fecal WBC Lactoferrin 11/10/22 * Giardia lamblia, Direct Detection EIA 11/10/22 * O & P Exam, Routine 11/10/22 * TSH With T4fr Reflex 11/10/22 * Rotavirus Ab 11/10/22 * Clostridium Difficile PCR 11/10/22 * Stool Occult Blood 11/10/22 * Enteric Panel by PCR 11/10/22 * Comprehensive Metabolic Panel 11/10/22 [facility] Hospital Evaluation + Plan note Future Appointments Appointment Date:02/09/2023 04:20:00 PM Scheduled Provider:Reanna NEW CNP Location:[facility] Appointment Type: Open Future Scheduled Tests Laboratory* Fecal WBC Lactoferrin 11/10/22 * Giardia lamblia, Direct Detection EIA 11/10/22 * O & P Exam, Routine 11/10/22 * Rotavirus Ab 11/10/22 * Clostridium Difficile PCR 11/10/22 * Stool Occult Blood 11/10/22 * Enteric Panel by PCR 11/10/22 [facility] Diagnosis Vaginal discharge Leukorrhea, not specified as infective Wilber's gland cyst Other specified disorders of urinary tract documented in this encounter [facility] Work Phone: Hospital course Narrative No data available for this section [facility] No data available for this section [facility] Primary [facility] Progress note No data available for this section [facility] Reason for referral (narrative) Referred by: Reanna NEW CNP [facility] Summary Purpose Family History No Family History Records FoundNo Family History Records FoundNo Family History Records Found No data available for this section No Family History Records Found Advance Directives No Advanced Directives Records FoundNo Advanced Directives Records FoundNo Advanced Directives Records FoundNo Advanced Directives Records Found Additional Source Comments Source Comments (unrecognize d section and content) In the event this informatio n is protected by the Federal Confidentiality of Alcohol and Drug Abuse Patient Records regulations: The Federal rules restrict any use of the information to criminally investigate or prosecute any alcohol or drug abuse patient.[facility] the event this information is protected by the Federal Confidentiality of Alcohol and Drug Abuse Patient Records regulations: The Federal rules restrict any use of the information to criminally investigate or prosecute any alcohol or drug abuse patient.[facility] Reason for Visit (unrecogniz ed section and content) Reason Comments Opened In Error Reason Comments vulvodynia Specialty Diagnoses / Procedures Referred By Contac t Referred To Contact Physical Therapist / Physical Therapy Diagnoses Pelvic and perineal pain Procedures HC PT EVAL LOW COMPLEX HC PT THERAPEUTIC EXERCISE,EA 15 MIN Kely Gomez, DO [address] [place] [address] Rhonda Fields PT Referral ID Status Reason Start Date Expiration Date V isits Requested Visits Authorized [id number] Authorized 05/27/2022 05/27/2023 1 99 INFORMATION SOURCE (unrecogn ized section and content) DATE CREATED AUTHOR 10/16/2020 [facility] DATE CREATED AUTHOR AUTHOR'S ORGANIZ ATION 12/25/2021 [facility] DATE CREATED AUTHOR AUTHOR'S ORGANIZ ATION 06/05/2022 [facility] DATE CREATED AUTHOR AUTHOR'S ORGANIZ ATION 02/17/2023 [facility] Care Teams (unrecognized sec tion and content) Anthropology And Archeology Instructor Relationship Specialty Start Date End Date Fernando Garrido MD [address] [place] [address] PCP - General Obstetrics & Gynecology 03/16/22 Anthropology And Archeology Instructor Relationship Specialty Start Date End Date Fernando Garrido MD [address] [place] [address] PCP - General Obstetrics & Gynecology 03/16/22 Anthropology And Archeology Instructor Relationship Specialty Start Date End Date Fernando Garrido MD [address] [place] [address] PCP - General Obstetrics & Gynecology 03/16/22 FOR RECORDS PERTAINING TO PATIENTS WHO ARE OR HAVE BEEN ENROLLED IN A CHEMICAL DEPENDENCY/SUBSTANCEABUSE PROGRAM, SOME INFORMATION MAY BE OMITTED. This clinical summary was aggregated from multiple sources. Caution should be exercised in using it in the provision of clinical care. This summary normalizes information from multiple sources, and as a consequence, information in this document may materially change the coding, format and clinical context of patient data. In addition, data may be omitted in some cases. CLINICAL DECISIONS SHOULD BE BASED ON THE PRIMARY CLINICAL RECORDS. [facility]. provides no warranty or guarantee of the accuracy or completeness of information in this document.
[2024-01-13 11:10] LABS: Age Gdln ACOG Testing Note (.); HPV Aptima Negative (Negative); IGP, Aptima HPV, rfx 16/18,45 Note (.)
== END 2024-01-05 19:20 | disposition home or self-care (01) ==
LOC: LAB 19:19
PROVIDERS: Visit Provider Obstetrics & Gynecology
DX: Z01.419 Encounter for gynecological examination (general) (routine) without abnormal findings (principal)
CPT/HCPCS: 87624; 88175

== ENCOUNTER 2024-01-11 10:10 | Outpatient (OUT) | payer OTHER, SELFPAY ==
--- NOTE | 2024-01-11 10:14 | MM_ITS ---
Patient Name: ELOISA IGLESIAS MR#: [id number] : 1980 Exam Date: 01/11/2024 Ordering Doctor: DR Fernando Garrido . RADIOLOGY REPORT PROCEDURE: MM TOMOSYNTHESIS SCREENING BI COMPARISON: [facility] MAMM SCREEN 3D ROXI CAD, 12/19/2021. MM TOMOSYNTHESIS SCREENING BI, 01/01/2023. INDICATIONS: Screening Calculator Name NCI Breast Cancer Risk Assessment Tool 5 Year Breast Cancer Risk 0.70% Lifetime Breast Cancer Risk 9.90% Personal Breast Cancer No Personal Ovarian Cancer No Treatments None Family Cancers Father with lung cancer at age 53; Grandfather-paternal with lung cancer at age 70. LOCATION: [facility] BREAST COMPOSITION: The breasts are extremely dense, which lowers the sensitivity of mammography. FINDINGS: DIAGNOSTIC CATEGORY 1--NEGATIVE. NO CHANGE FROM COMPARISON ASSESSMENT. RIGHT BREAST: No significant suspicious finding. LEFT BREAST: No significant suspicious finding. RECOMMENDATIONS: ROUTINE MAMMOGRAM AND CLINICAL EVALUATION IN 12 MONTHS. PLEASE NOTE: A NORMAL MAMMOGRAM DOES NOT EXCLUDE THE POSSIBILITY OF BREAST CANCER. A CLINICALLY SUSPICIOUS PALPABLE LUMP SHOULD BE BIOPSIED. Dictated by: Peter Weaver MD on 01/11/2024 at 13:10 Approved by: Peter Weaver MD on 01/11/2024 at 13:11
== END 2024-01-11 10:11 | disposition home or self-care (01) ==
LOC: MAMMO 10:10
PROVIDERS: Visit Provider Obstetrics & Gynecology
DX: Z12.31 Encounter for screening mammogram for malignant neoplasm of breast (principal); Z80.1 Family history of malignant neoplasm of trachea, bronchus and lung
CPT/HCPCS: 77063; 77067

== ENCOUNTER 2025-01-08 21:09 | Outpatient (REF) | payer OTHER, SELFPAY ==
--- OUTSIDE RECORDS SUMMARY | 2025-01-08 21:17 | XMS_ITS | CCD ---
Author Organization [facility] Care Team Providers Care And Taxi Instructor Bus Trolley Name Role Phone Idalmis Garcia Primary Care Provider Yolanda CHEUNG Primary Care Physician RADHIKA, DR ROSS Attending Unavailable RADHIKA, DR ROSS Consulting Unavailable REQUEST, NONE LISTED Primary Care Unavaila ble RADHIKA, DR ROSS Admitting Unavailable RADHIKA, DR ROSS Attending Unavailable REQUEST, NONE LISTED Primary Care Unavaila ble RADHIKA, DR ROSS Consulting Unavailable RADHIKA, DR ROSS Admitting Unavailable AGUBOSIM, ELMER Consulting Unavailable MAXIM BAUER Consulting Unavailable RADHIKA, DR ROSS Attending Unavailable West, DR Green Consulting Unavailable REQUEST, DR NONE LISTED Primary Care Unavaila ble RADHIKA, DR ROSS Admitting Unavailable RADHIKA, DR ROSS Consulting Unavailable RADHIKA, DR ROSS Consulting Unavailable REQUEST, NONE LISTED Primary Care Unavaila ble RADHIKA, DR ROSS Admitting Unavailable RADHIKA, DR ROSS Attending Unavailable Ziitaliaer, DR Domínguez Consulting Unavailable West, DR Green Consulting Unavailable REQUEST, NONE LISTED Primary Care Unavaila ble RADHIKA, DR ROSS Admitting Unavailable RADHIKA, DR ROSS Attending Unavailable RADHIKA, DR ROSS Consulting Unavailable RADHIKA, DR ROSS Attending Unavailable RADHIKA, DR ROSS Consulting Unavailable REQUEST, NONE LISTED Primary Care Unavaila ble RADHIKA, DR ROSS Admitting Unavailable NOLA PHAM Admitting Unavailable REQUEST, NONE LISTED Primary Care Unavaila ble NOLA PHAM Attending Unavailable NOLA PHAM Consulting Unavailable ROLDAN URRUTIA Consulting Unavailable Fernando Garrido MD Primary Care Provider ANABELA BOYD Referring Unavailable FERNANDO GARRIDO Primary Care Unavailable JASON, KELY R Referring Unavailable FERNANDO GARRIDO Primary Care Unavailable JASON, KELY R Referring Unavailable RADHIKA, FERNANDO RUBALCAVA Primary Care Unavailable JASON, KELY R Referring Unavailable RADHIKA, FERNANDO RUBALCAVA Primary Care Unavailable Reanna WHITLEY Primary Care Physician Unavailable Primary Care Provider Unavailabl e Rebecca, Elba Primary Care Physician [phone] Rebecca, Elba Attending Unavailable Rebecca, Elba Admitting Unavailable Rebecca, Elba Attending Unavailable Rebecca SCHOOL LEADER, Elba Primary Care Provider [phone] EMILY BLUNT Attending Unavailable REBECCA, ELBA Referring Unavailable TIMMIS, CLAYTON H Attending Unavailable REBECCA, ELBA Referring Unavailable RADHIKA, FERNANDO Attending Unavailable Timmis, Clayton H Referring Unavailable Timmis, Clayton H Admitting Unavailable Timmis, Clayton H Attending Unavailable Rebecca, Elba Admitting Unavailable Rebecca, Elba Attending Unavailable Allergies Allergy ClassificationReported Allergen(s)Allergy TypeDate of OnsetReaction(s) Facility (2 sources)No Known Medication Allergies; Translations: [No Known Medication Allergies]Propensity to adverse reactions (disorder)[facility] Repository Medications Current Medications MedicationDrug Class(es)DatesSig (Normalized)Sig (Original)amoxicillin 875 mg / clavulanate 125 mg oral tablet (1 source)Penicillin-class AntibacterialStart: 07-03-2021 End: 01-04-7990ieoe 1 tablet by mouth every twelve hoursAugmentin 875 mg oral tablet = 1 tab(s), Oral, q12hr, X 10 day(s), # 20 tab(s), Refills(s) 0, Pharma cy: [facility], 170, cm, 07/03/21 13:50:00 EDT, Height/Length Dosing, 63.9, kg, 07/03/2212:50:00 EDT, Weight Dosing Start Date: 07/03/21 Stop Date: 07/13/21 Status: Orderedcephalexin 500 mg oral capsule (1 source)Cephalosporin AntibacterialStart: 06-21-2021 End: 05-60-3450naak 1 capsule by mouth every twelve hoursKeflex 500 mg Cap 500 mg = 1 cap(s), Oral, q12hr, X 5 day(s), # 10 cap(s), Refills(s) 0, Pharmacy: [facility], 170, cm, 06/20/21 23:04:00 EDT, Height/Length Dosing, 64.3, kg, 06/20/21 23:04:00 EDT, Weight Dosing Start Date: 06/21/21 Stop Date: 06/26/21 Status: Orderedclindamycin 10 mg/ml topical foam (4 sources)Lincosamide AntibacterialStart: 42-05-7498Rfwjltojfie Phosphate 1 % FOAM Apply 1 drop topically in the morning and at bedtime 100 g 3 05/01/2022 Activedocusate sodium 100 mg oral capsule (2 sources)Start: 29-09-4180bdky 1 capsule by mouth twice daily as needed for constipationColace 100 mg Cap 100 mg = 1 cap(s), Oral, BID, PRN for constipation, # 60 cap(s), Refills(s) 0, Pharmacy: [facility], 171, cm, 10/30/20 14:37:00 EDT, Height/Length Dosing, 62.9, kg, 10/30/20 14:37:00 EDT, Weight Dosing Start Date: 10/30/20 Status: Orderedfamotidine 10 mg oral tablet (2 sources)Histamine-2 Receptor AntagonistStart: 06-21-2021 End: 99-73-5866gubs 1 tablet by mouth twice dailyfamotidine 10 mg oral tablet 10 mg = 1 tab(s), Oral, BID, X 14 day(s), # 28 tab(s), Refills(s) 0, Pharmacy: [facility], 170, cm, 06/20/21 23:04:00 EDT, Height/Length Dosing, 64.3, kg, 06/20/21 23:04:00 EDT, Weight Dosing Start Date: 06/21/21 Stop Date: 07/05/21 Status: Orderedfluticasone propionate 0.05 mg/actuat metered dose nasal spray (6 sources)Corticosteroidtake 1 spray(s) nasal route once dailyfluticasone (Flonase) 50 MCG/ACT nasal spray Administer 1 spray into each nostril Daily Shake gently. Before first use, prime pump. After use, clean tip and replace cap. Activefluticasone 0.05 mg/inh Nasal [place] (7 sources)Start: 64-38-5253ygxm 2 spray(s) nasal route once dailyfluticasone 0.05 mg/inh Nasal [place] 2 spray(s), Nasal, Daily, 16 gram, Refill(s) 2, each nostril, [facility], [facility], 07/03/21 13:50:00 EDT, Height/Length Dosing, 63.9, kg, 07/03/21 13:50:00 EDT, Weight Dosing Start Date: 07/03/21 Status: Ordered Quantity: 16.0 Unit: g Repeat number: 3Start: 53-04-5492vfnj 2 spray(s) nasal route once dailyfluticasone 0.05 mg/inh Nasal [place] 2 spray(s), Nasal, Daily, 16 gram, Refill(s) 2, each nostril, [facility], cm, 07/03/21 13:50:00 EDT, Height/Length Dosing, 63.9, kg, 07/03/21 13:50:00 EDT, Weight Dosing Start Date: 07/03/21 Status: Orderedlidocaine 0.05 mg/mg topical ointment (4 sources)Antiarrhythmic, Amide Local AnestheticStart: 50-76-4495nyckkstlr (XYLOCAINE) 5 % ointment Indications: Vulvodynia Apply topically as needed to the vulvar introitus 30 g 3 03/16/2022 ActivepredniSONE 20 mg oral tablet (1 source)Start: 07-03-2021 End: 40-70-3356qfjr 2 tablets by mouth once dailypredniSONE 20 mg Tab 40 mg = 2 tab(s), Oral, Daily, X 5 day(s), # 10 tab(s), Refills(s) 0, [facility], cm, 07/03/21 13:50:00 EDT, Height/Length Dosing, 63.9, kg, 07/03/21 13:50:00 EDT, Weight Dosing Start Date: 07/03/21 Stop Date: 07/08/21 Status: Ordered Completed/Discontinued Medications MedicationDrug Class(es)DatesSig (Normalized)Sig (Original)Itraconazole (2 sources)Azole AntifungalStart: 59-83-2285Wskczndewgwv Itraconazole, See Instructions, 90 tab(s), 0, 200mg po daily, [facility], Supply, 170, cm, 11/10/22 16:46:00 EDT, Height/Length Dosing, 65.3, kg, 11/10/22 16:46:00 EDT, WeightDosing Start Date: 11/10/22 Status: Ordered Problems Active Problems Problem ClassificationProblemDateDocumented DateEpisodic/ChronicEndometriosis (1 source)Endometriosis, unspecified; Translations: [ENDOMETRIOSIS UNSPECIFIED] Onset: 59-77-8093PmtsbfzYajhwubtyty (9 sources)Aedhhyzlniy11-53-9978FczxropxVvulowlbdmmjf and screening for infectious disease (1 source)Encounter for screening for human papillomavirus (HPV); Translations: [ENC SCREENING HUMAN PAPILLOMAVIRUS]Onset: 02-99-0879ApiycctdIdbscfldq disorders (1 source)Excessive and frequent menstruation with regular cycle; Translations: [EXCESS FREQ MENSTRUATION W/REG CYCL]Onset: 85-44-9740UhgnvzfTykaa diseases of bladder and urethra (1 source)Other specified disorders of urethra; Translations: [Other specified disorders of urethra]Onset: 36-33-0225CwpufmuqGaptp ear and sense organ disorders (2 sources)Sensorineural hearing loss, bilateral; Translations: [Sensorineural hearing loss, bilateral]38-99-9017AiqasewIjvfh ear and sense organ disorders (2 sources)Asymmetrical sensorineural hearing loss; Translations: [Sensorineural hearing loss, bilateral]86-05-0177CiamhbbEegqn ear and sense organ disorders (2 sources)Bilateral tinnitus; Translations: [Tinnitus, bilateral]06-20-2024 EpisodicOther ear and sense organ disorders (2 sources)Tinnitus of left ear; Translations: [Tinnitus, left ear]06-21-2024 EpisodicOther female genital disorders (11 sources)Vulvodynia; Translations: [Vulvodynia, unspecified]Onset: 03-16-2022 54-60-1429MgtuflrWvpuh female genital disorders (1 source)Vulvodynia, unspecified; Translations: [Vulvodynia, unspecified]Onset: 56-64-3192BjjlxagZnufv female genital disorders (2 sources)Other specified noninflammatory disorders of vagina; Translations: [OTH SPEC NONINFLAMMATORY D/O VAGINA]Onset: 86-73-0257MfzcudeaQomia female genital disorders (1 source)Vaginal discharge; Translations: [Other specified noninflammatory disorders of vagina]EpisodicOther gastrointestinal disorders (2 sources)Abnormal feces; Translations: [Other fecal abnormalities]Onset: 76-06-7470SqimdeclLhjmq nervous system disorders (4 sources)Mononeuropathy of lower limb; Translations: [Unspecified mononeuropathy of right lower limb]Onset: 606608-71-7987ZhjmlmpQijwi screening for suspected conditions (not mental disorders or infectious disease) (10 sources)Encounter for screening mammogram for malignant neoplasm of breast; Translations: [Encounter for screening for malignant neoplasm of cervix]Onset: 39-30-7987AaoxcvrlMqnhr upper respiratory infections (2 sources)Acute maxillary sinusitis, unspecified; Translations: [Acute maxillary sinusitis]Onset: 20-78-9076JpnilkmhGnwrcszn codes; unclassified (1 source)Family history of malignant neoplasm of trachea, bronchus and lung; Translations: [FAM HX MALIG NEOPLSM TRACH BRON LNG]Onset: 57-05-4638Ulbtvful Unclassified (5 sources)Body mass index 20-24 - yrnvsh18-71-9865Jvobnijkfecq (2 sources)History of SRQI-PyK-364-01-2021Unclassified (1 source)CONTACT W/AND (SUSP) EXPOS COVID-19; Translations: [CONTACT W/AND (SUSP) EXPOS COVID-19]Onset: 98-75-0056Zykdrejqzbbq (2 sources)Finding of sensation of foujolf47-06-5543Govhopatobym (1 source)Pain in pelvis; Translations: [Pelvic pain]Onset: 522302-75-1822 Urinary tract infections (3 sources)Urinary tract infectious disease; Translations: [Urinary tract infection, site not specified]Onset: 14-14-2596Eaigcmmd Past or Other Problems Problem ClassificationProblemDateDocumented DateEpisodic/ChronicAbdominal pain (20 sources)Abdominal pain; Translations: [Unspecified abdominal pain]Onset: 45-30-0235KqmctzitWkekjrxief associated with dizziness or vertigo (11 sources)Dizziness and giddiness; Translations: [Dizziness and giddiness] Onset: 60-08-5604KdbmnrewPismxjz and fatigue (11 sources)Fatigue; Translations: [Other fatigue]Onset: 28-21-3494Zakdvaqh Mycoses (20 sources)Onychomycosis due to dermatophyte ; Translations: [Tinea unguium] Onset: 23-65-0193RaydcphwJomdl diseases of bladder and urethra (11 sources)Cyst of vulva; Translations: [Other specified disorders of urethra] Onset: 77-47-3979NmwyqkstWzulh ear and sense organ disorders (11 sources)Tinnitus; Translations: [Tinnitus, unspecified ear]Onset: 04-14-2024 EpisodicOther female genital disorders (1 source)Vulvar cyst; Translations: [VULVAR CYST]Onset: 56-76-7825TdwalxpkSxfjn gastrointestinal disorders (9 sources)Dark stools; Translations: [Other fecal abnormalities]Onset: 038359-18-0355SxwxvpgbXsfafsl cyst (2 sources)Unspecified ovarian cyst, left side; Translations: [Unspecified ovarian cyst, right side]Onset: 38-86-2978GpygttnmPtytphmv codes; unclassified (10 sources)Body mass index 20-24 - normal; Translations: [Body mass index (BMI) 22.0-22.9, adult]Onset: 26-57-2218Hnrqhklf Results Test NameValueInterpretationReference RangeFacilityMRI BRAIN W/ + W/O CONTRASTon 06-28-2024 Exam Date/Time: 06/26/2024 19:18 EDT Reason for Exam: H90.3, H93.12 Report IMPRESSION: NO ACUTE INTRACRANIAL PROCESS. NO ENHANCING MASS OR PATHOLOGIC ENHANCEMENT. NORMAL APPEARANCE OF CRANIAL NERVES VII/VIII. NO CEREBELLAR PONTINE ANGLE OR INTERNAL AUDITORY CANAL MASS. EXAM: MRI of the brain without and with contrast History: Bilateral tinnitus. Technique: Multiplanar multisequence MRI of the brain was performed without and with contrast including thin slice pre and postcontrast imaging through the internal auditory canals. Comparison: None available Findings: A few tiny foci of hyperintense T2/FLAIR signal within the bilateral frontal lobe white matter are nonspecific but are most likely due to sequela of headaches, early chronic small vessel ischemic changes in a patient of this age, or idiopathic. Brain volume is age-appropriate. Ventricular morphology is within normal limits. No acute hemorrhage, enhancing mass or pathologic enhancement, mass effect, midline shift, or abnormal extra-axial fluid collection. Midline structures are within normal limits. The posterior fossa is within normal limits. Cranial nerves VII and VIII are normal in course and contour. No enhancing mass is present in the cerebellopontine angles or internal auditory canals. There is normal fluid signal of the inner ear structures including cochlea and vestibules. There is intact osseous covering over the superior semicircular canals. There is no diffusion restriction. No susceptibility artifact is identified on the gradient echo sequence. The major intracranial vascular flow voids are maintained. Cranial nerves 7/8 complexes appear grossly unremarkable. The visualized paranasal sinuses and bilateral mastoid air cells are clear. Technical Comments: Contrast: Vueway Contrast amount in ml's: 6.50 Report Ordering Provider: Clayton Sim FINAL REPORT Dictated: 06/28/2024 1:58 pm Patrick Knutson DO Signed (Electronic Signature): 06/28/2024 1:58 pm Signed by: Patrick Knutson DO Transcribed by: MCKENZIE Technologist: [facility], Radi[facility], - 06/28/2024 Exam Date/Time: 06/26/2024 19:18 EDT Reason for Exam: H90.3, H93.12 Report IMPRESSION: NO ACUTE INTRACRANIAL PROCESS. NO ENHANCING MASS OR PATHOLOGIC ENHANCEMENT. NORMAL APPEARANCE OF CRANIAL NERVES VII/VIII. NO CEREBELLAR PONTINE ANGLE OR INTERNAL AUDITORY CANAL MASS. EXAM: MRI of the brain without and with contrast History: Bilateral tinnitus. Technique: Multiplanar multisequence MRI of the brain was performed without and with contrast including thin slice pre and postcontrast imaging through the internal auditory canals. Comparison: None available Findings: A few tiny foci of hyperintense T2/FLAIR signal within the bilateral frontal lobe white matter are nonspecific but are most likely due to sequela of headaches, early chronic small vessel ischemic changes in a patient of this age, or idiopathic. Brain volume is age-appropriate. Ventricular morphology is within normal limits. No acute hemorrhage, enhancing mass or pathologic enhancement, mass effect, midline shift, or abnormal extra-axial fluid collection. Midline structures are within normal limits. The posterior fossa is within normal limits. Cranial nerves VII and VIII are normal in course and contour. No enhancing mass is present in the cerebellopontine angles or internal auditory canals. There is normal fluid signal of the inner ear structures including cochlea and vestibules. There is intact osseous covering over the superior semicircular canals. There is no diffusion restriction. No susceptibility artifact is identified on the gradient echo sequence. The major intracranial vascular flow voids are maintained. Cranial nerves 7/8 complexes appear grossly unremarkable. The visualized paranasal sinuses and bilateral mastoid air cells are clear. Technical Comments: Contrast: Vueway Contrast amount in ml's: 6.50 Report Ordering Provider: Clayton Sim FINAL REPORT Dictated: 06/28/2024 1:58 pm Patrick Knutson DO Signed (Electronic Signature): 06/28/2024 1:58 pm Signed by: Patrick Knutson DO Transcribed by: MCKENZIE Technologist: JACQUELINE ORDOÑEZ [facility] BRAIN W/ + W/O CONTRASTOrdered By: Radiologist Radiology on 45-91-5328ZMKFGeneral Leonard Wood Army [facility] Work Phone: [facility] Brain w/ + w/o Contraston [id number] Brain w/ + w/o ContrastExam Date/Time: 06/26/2024 19:18 EDT Reason for Exam: H90.3, H93.12 Report IMPRESSION: NO ACUTE INTRACRANIAL PROCESS. NO ENHANCING MASS OR PATHOLOGIC ENHANCEMENT. NORMAL APPEARANCE OF CRANIAL NERVES VII/VIII. NO CEREBELLAR PONTINE ANGLE OR INTERNAL AUDITORY CANAL MASS. EXAM: MRI of the brain without and with contrast History: Bilateral tinnitus. Technique: Multiplanar multisequence MRI of the brain was performed without and with contrast including thin slice pre and postcontrast imaging through the internal auditory canals. Comparison: None available Findings: A few tiny foci of hyperintense T2/FLAIR signal within the bilateral frontal lobe white matter are nonspecific but are most likely due to sequela of headaches, early chronic small vessel ischemic changes in a patient of this age, or idiopathic. Brain volume is age-appropriate. Ventricular morphology is within normal limits. No acute hemorrhage, enhancing mass or pathologic enhancement, mass effect, midline shift, or abnormal extra-axial fluid collection. Midline structures are within normal limits. The posterior fossa is within normal limits. Cranial nerves VII and VIII are normal in course and contour. No enhancing mass is present in the cerebellopontine angles or internal auditory canals. There is normal fluid signal of the inner ear structures including cochlea and vestibules. There is intact osseous covering over the superior semicircular canals. There is no diffusion restriction. No susceptibility artifact is identified on the gradient echo sequence. The major intracranial vascular flow voids are maintained. Cranial nerves 7/8 complexes appear grossly unremarkable. The visualized paranasal sinuses and bilateral mastoid air cells are clear. Technical Comments: Contrast: Vueway Contrast amount in ml's: 6.50 Report Ordering Provider: Clayton Sim FINAL REPORT Dictated: 06/28/2024 1:58 pm Patrick Knutson DO Signed (Electronic Signature): 06/28/2024 1:58 pm Signed by: Patrick Knutson DO Transcribed by: MCKENZIE Technologist: [facility] BRAIN W/ + W/O CONTRASTon 64-90-2256Ybrmyygrg Study observation (narrative)[facility]am[facility] InteractiveDavis [facility] Center Informationon 15-47-9852Chdx Tone Audiometry Audio indicated normal hearing sensitivity 250-4000 Hz, sloping to a mild to moderate high frequency hearing loss 0895-1281 Hz in the right ear. The left ear exhibited normal hearing 250-3000 Hz, sloping to a moderate to severe sensorineural hearing loss 4608-8675 Hz. Hallpike: Yielded negative results in both positions tested. [facility] Gratci HealthcareCHEMISTRYOrdered By: SYSTEM SYSTEM on 04-14-2024 Albumin [Mass/Vol]4.6 g/dLNormal3.3 - 5.0 gm/dLRemisol ChemAlbumin/Globulin [Mass ratio]2.6 {ratio}High1.1 - 2.2Remisol ChemALP [Catalytic activity/Vol]25 [iU]/wXqypud38 - 98 Int._Unit/LRemisol ChemALT No additional P-5'-P [Catalytic activity/Vol]10 [iU]/dNormal6 - 46 Int._Unit/LRemisol ChemAnion gap [Moles/Vol]8 mmol/LNormal6 - 16 mEq/LRemisol ChemAST [Catalytic activity/Vol]13 [iU]/dNormal 5 - 43 Int._Unit/LRemisol ChemBilirubin [Mass/Vol]0.6 mg/dLNormal0.0 - 1.1 mg/dL Remisol ChemCalcium [Mass/Vol]9.3 mg/dLNormal8.9 - 11.1 mg/dLRemisol Chem Chloride [Moles/Vol]106 mmol/PVnlhoi197 - 111 mmol/LRemisol ChemCholesterol [Mass/Vol]184 mg/tMKnvbrk823 - 200 mg/dLRemisol ChemCholesterol in HDL [Mass/Vol]63 mg/dLInvalid Interpretation CodeRemisol ChemComment on above:Result Comment: '>= 60 LOW RISK' '<= 40 HIGH RISK'Cholesterol in LDL [Mass/Vol]108 mg/dLNormal<=129mg/dLRemisol ChemCholesterol in VLDL [Mass/Vol]10 mg/dLNormal7 - 40 mg/dLRemisol ChemCO2 [Moles/Vol]29 mmol/MVemocg81 - 31 mmol/LRemisol ChemCreatinine [Mass/Vol]0.7 mg/dLNormal0.5 - 1.3 mg/dLRemisol FttrvDUJ110 mL/min/1.73 v6Ojewlc >=59mL/min/1.73 q2Uizrrqd ChemGlobulin (S) [Mass/Vol]1.8 g/dLNormal1.4 - 4.0 gm/dLRemisol ChemGlucose [Mass/Vol]93 mg/kFSiitvr76 - 199 mg/dLRemisol Chem Potassium [Moles/Vol]4.1 mmol/LNormal3.5 - 5.3 mmol/LRemisol ChemProtein [Mass/Vol]6.4 g/dLNormal6.0 - 7.8 gm/dLRemisol ChemSodium [Moles/Vol]139 mmol/L Fotndg709 - 145 mmol/LRemisol ChemTriglyceride [Mass/Vol]48 mg/dLNormal <=149mg/dLRemisol ChemUrea nitrogen [Mass/Vol]11 mg/dLNormal5 - 21 mg/dLRemisol ChemUrea nitrogen/Creatinine [Mass ratio]16 mg/yzSrfzpq11 - 20Remisol ChemCMPon 93-81-3030Ghijkwd [Mass/Vol]4.6 g/dLNormal3.3-5.0[facility] Comment on above:Performed By: #### [id number] #### [facility] [address], [place] [address]Gdixbam/Globulin (S) [Mass conc ratio]2.6High1.1-2.2FTrinity Health System Twin City Medical CenterComment on above:Performed By: #### [id number] #### [facility] [address], [place] [address]IDH [Catalytic activity/Vol]25 Int._Unit/PPncwub85-14RqnjhxWilson HealthComment on above:Performed By: #### [id number] #### [facility] [address], [place] [address]VLT No additional P-5'-P [Catalytic activity/Vol]10 Int._Unit/L Normal6-46Wilson HealthComment on above:Performed By: #### [id number] #### [facility] [address], [place] [address]Michk gap [Moles/Vol]8 mmol/LNormal6-16Wilson HealthComment on above:Performed By: #### [id number] #### [facility] [address], [place] [address]FZF [Catalytic activity/Vol]13 Int._Unit/LNormal5-43[facility] HealthComment on above:Performed By: #### [id number] #### [facility] [address], [place] [address]Fvqgceyts [Mass/Vol]0.6 mg/dLNormal0.0-1.1FTrinity Health System Twin City Medical CenterComment on above:Performed By: #### [id number] #### [facility] [address], [place] [address]Yyeuwod [Mass/Vol]9.3 mg/dLNormal8.9-11.1FTrinity Health System Twin City Medical CenterComment on above:Performed By: #### [id number] #### [facility] [address], [place] [address]Fhdvjfcp [Moles/Vol]106 mmol/YKhjrbn022-664FlilurWilson HealthComment on above:Performed By: #### [id number] #### [facility] [address], [place] [address]FN7 [Moles/Vol]29 mmol/KCjvnie19-43YkttmxWilson Health Comment on above:Performed By: #### [id number] #### [facility] [address], [place] [address]Nhzyaqjrcu [Mass/Vol]0.7 mg/dLNormal0.5-1.3FTrinity Health System Twin City Medical CenterComment on above:Performed By: #### [id number] #### [facility] [address], [place] [address]Vjdwopqr (S) [Mass/Vol]1.8 g/dLNormal1.4-4.0Wilson HealthComment on above:Performed By: #### [id number] #### [facility] [address], [place] [address]Gnkatpm [Mass/Vol]93 mg/eHXiztqr57-304LmytzsWilson HealthComment on above:Performed By: #### [id number] #### [facility] [address], [place] [address]Mywhdtpag [Moles/Vol]4.1 mmol/LNormal3.5-5.3FTrinity Health System Twin City Medical CenterComment on above:Performed By: #### [id number] #### [facility] [address], [place] [address]Tbxkzdl [Mass/Vol]6.4 g/dLNormal6.0-7.8Wilson HealthComment on above:Performed By: #### [id number] #### [facility] [address], [place] [address]Hdibxv [Moles/Vol]139 mmol/UQnndyt243-441IimoizWilson HealthComment on above:Performed By: #### [id number] #### [facility] [address], [place] [address]Sjrv nitrogen [Mass/Vol]11 mg/dLNormal5-21Wilson HealthComment on above:Performed By: #### [id number] #### [facility] [address], [place] [address]Lyaz nitrogen/Creatinine [Mass ratio]16 No ZudpnJnmjnq92-76 [facility] HealthComment on above:Performed By: #### [id number] #### [facility] [address], [place] [address]Wlpbnd Medicine Office/Clinic Noteon 15-30-1300Ogehay Medicine Office/Clinic NoteFabridgewater state hospital Medicine Office/Clinic Note Chief Complaint Establish Care HPI Staff Establish Care: History: Any previous diagnosis: No History of seeing any specialist(s): Derm When was your last doctor visit: January 2023 Last provider: [facility] [place] Any recent labs: No Health Maintenance UTD: Colonoscopy: Never had PSA: N/A Mammogram: Up to date - Done in Dec Pelvic/pap: Up to date - Done in Dec Acute: Current issues/complaints: Still having toe issues - she states that this has been ongoing. Also C/O ringing in the ears. She states that this has been ongoing for at least 5 years. History of Present Illness Royer Miramontes is a 43-year-old female who present to the clinic to discuss toe issues. Patient verbalized she has fungal toenail issues for the past couple of years. Patient was previously prescribed Lamisil, terbinafine oral and topical ointment with no relief. Patient was referred to podiatry. Patient verbalized seeing podiatry. Her last visit to podiatry was last October. She is currently using terbinafine 2% american to affected toenail. Patient was not satisfied with the care as she is stillhaving some issues with her toenails. As per patient, podiatry mentioned that she might be living with this toe issue.Patient was requesting for oral antifungal medicine today. I explained patient her toes looks better than before(as per previous documentation) and at this point prescribed oral antifungals is not necessary. Advised patient to follow-up with her clinical nursing intern and asked them how long she needs to continue her terbinafine 2% american to her affected toenail. Also advised patient for laser treatment. Patient verbalized that she has used all the euop-axk-tigzkoj and home remedies with no relief. Patient verbalized she has seen fitter hand check up last Wednesday for screening skin issues related to actinic keratosis, 2 rashes on her chest and 1 on her arm. 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 patient has c/o of ringing her bilateral ears for the past 6 years. she was using Flonase with no relief. Verbalizes OTC medicine and have tried home remedies with no relief. verbalizes occasional headache and dizziness while moving head. Denies nausea, vomiting and loss of balance associated with ringing ears.patient mentioned she used fan and white noise at night in her room with no relief.At this point i would like to refer her to ENT as she is dealing with this issues for the past 6 year. patient was happy to be refereed. Patient would like to be screen for hyperlipidemia and kidney function.we will order CBC and lipid panel today. No further concern at this visit. Review of Systems PHQ Score Initial Depression Screen Score: 0 SCORE Physical Exam Vitals & Measurements HR: 70(Peripheral) RR: 16 BP: 126/82 SpO2: 99% HT: 67 in HT: 170.0 cm WT: 64.2 kg WT: 141.537 lb BMI: 22.21 General: Well developed, well nourished, in no acute distress Eyes: Pupils equal, round, and reactive to light. Conjunctivae and sclerae normal, and extraocular movements intact Ears: No deformity or lesion of external ear. Canals and TM appear normal bilaterally. TM???s intact, not inflamed, with normal light reflex. Hearing grossly normal to conversational speech Nose: No deformity, discharge, inflammation, or lesions Mouth: Mucous membranes moist. Normal oropharynx, and posterior pharynx without lesions or exudates. Tongue normal Neck: Neck supple. No masses or palpable cervical nodes. Trachea midline. Thyroid without nodules, masses, tenderness, or enlargement Lungs: clear to auscultation throughout, no wheezing, no rales. No respiratory distress Cardio: regular rate and rhythm, no murmur Abdomen: not assessed Musculoskeletal: No deformity or scoliosis noted. Normal range of motion. Joints normal. No erythema, edema, effusion, or ecchymosis Extremity: not assessed Neurologic: Grossly normal Skin: not assessed looks improved right great toe without thickened and yellowish discoloration butstill looks mild deformed, while right third toe looks deformed with some thickness ans yellowish discolor. Mental Status: alert and oriented x3, normal mood and affect given age Assessment/Plan 1. Ringing in ears (H93.19: Tinnitus, unspecified ear) Advices patient for home remedies such using noise machine such as white noise, fan, dehumidifier, or wearing in-ear noise generators during the day. relaxation technique such as listening soft music,try yoga, practice guided imagery.Dietary changes such as limit caffeine, alcohol, consider eating more foods rich in vitamins B12 and getting enough sleep. Patient verbalized understanding. Referral made to ENT specialist. Ordered: [facility] [place], [place] External Ambulatory Referral 2. Onychomycosis of toenail (B35.1: Tinea unguium) Advices patient to continue her prescribed terbinafine 2% american to her toes and continue F/U with her podia (more content not included)...Galion HospitalComment on above:Result Comment: Electronically Signed By: Elba Gonzalez\.br\Date and Time Signed: 04/14/24 11:35 ESTLipid Panel on 19-35-0496Bcwppjcpeap [Mass/Vol]184 mg/cJYiujrz607-106OyowzjWilson HealthComment on above:Performed By: #### [id number] #### Juan R [facility] [address] [place] [address]Tzkmuoanjyj in HDL [Mass/Vol]63 mg/dLInvalid Interpretation CodeWilson HealthComment on above:Result Comment: '>= 60 LOW RISK' '<= 40 HIGH RISK'Performed By: #### [id number] #### Pete [facility] [address], [place] [address]Auxhnuhipba in LDL [Mass/Vol]108 mg/dLNormal<=129Wilson HealthComment on above:Performed By: #### [id number] #### Pete [facility] [address], [place] [address]Jsvpxmuyfju in VLDL [Mass/Vol]10 mg/dLNormal7-40Wilson HealthComment on above:Performed By: #### [id number] #### Pete [facility] [address], [place] [address]Usqorsjifael [Mass/Vol]48 mg/dLNormal<=149Wilson HealthComment on above:Performed By: #### [id number] #### Pete [facility] [address], [place] [address]tLPQdn 38-90-8332kEHE009 mL/min/1.73 u4Xugluq>=59Wilson HealthComment on above:Performed By: #### [id number] #### Pete [facility] [address], [place] [address]JOJ,APTIMA HPV,AGE GDLNon 28-28-0284YQM GDLN ACOG TESTINGNote. NOMS HealthcareComment on above:TESTS RESULT FLAG UNITS REF RANGE LAB Clinician Provided Cytology Information Source.............Cervix;Endocervix No. of containers..01 ThinPrep Vial Age Algo ACOG Karol... FLAG LEGEND: L-Low Normal,H-High Normal,LL-Alert Low,HH-Alert High <-Panic Low,>-Panic High,A-Abnormal,AA-Critical Abnormal Performed at: 01 =[address] [id number] Laura Castano MD, HPV APTIMANegativeNegativeNOMS HealthcareComment on above:This nucleic acid amplification test detects fourteen high- risk HPV types (16,18,31,33,35,39,45,51,52,56,58,59,66,68) without differentiation. Performed at: =[facility] [id number] C.O.D. Biller: Laura Castano MD, Phone: [phone] Performed at: [facility] [id number] C.O.D. Biller: Laura Castano MD, Phone: [phone] IGP, APTIMA HPV, RFX 16/18,45Note.NOMS HealthcareComment on above:TESTS RESULT FLAG UNITS REF RANGE LAB DIAGNOSIS: 02 NEGATIVE FOR INTRAEPITHELIAL LESION OR MALIGNANCY. Specimen adequacy: 02 Satisfactory for evaluation. Endocervical and/or squamous metaplastic cells (endocervical component) are present. Performed by: Alejandro Yo, Mushroom Cutter (ASC) . 02 Note: Note 02 The Pap smear is a screening test designed to aid in the detection of premalignant and malignant conditions of the uterine cervix. It is not a diagnostic procedure and should not be used as the sole means of detecting cervical cancer. Both false-positive and false-negative reports do occur. Test Methodology: Note 02 This liquid based ThinPrep(R) pap test was screened with the use of an image guided system. HPV Genotype Reflex Note 02 Criteria not met, HPV Genotype not performed. FLAG LEGEND: L-Low Normal,H-High Normal,LL-Alert Low,HH-Alert High <-Panic Low,>-Panic High,A-Abnormal,AA-Critical Abnormal Performed at: [address] [address] Laura Castano MD, BRUSH-SPATULA CERVIX ENDOCERVIX [facility] TOMOSYNTHESIS SCREENING BIon 71-39-2026[place] [address] Mammography Report Signed Patient: FE LINTON MR#: [id number] : 1980 Acct:[id number] Age/Sex: 43 / F ADM Date: 01/11/24 Loc: MAMMO Attending Dr: Fernando Garrido D.O. Ordering Physician: Fernanod Garrido D.O. Results: Date of Service: 01/11/24 Follow Up: Procedure(s): MM tomosynthesis screening BI Accession Number(s): [id number] cc: Fernando Garrido D.O.; Physician,Non-Staff Marie Patient Name: FE LINTON MR#: [id number] : 1980 Exam Date: 01/11/2024 Ordering Doctor: DR Fernando Garrido . RADIOLOGY REPORT PROCEDURE: MM TOMOSYNTHESIS SCREENING BI COMPARISON: MG MAMM SCREEN 3D ROXI CAD, 12/19/2021. MM TOMOSYNTHESIS SCREENING BI, 01/01/2023. INDICATIONS: Screening Calculator Name NCI Breast Cancer Risk Assessment Tool 5 Year Breast Cancer Risk 0.70% Lifetime Breast Cancer Risk 9.90% Personal Breast Cancer No Personal Ovarian Cancer No Treatments None Family Cancers Father with lung cancer at age 53; Grandfather-paternal with lung cancer at age 70. LOCATION: [facility] BREAST COMPOSITION: The breasts are extremely dense, which lowers the sensitivity of mammography. FINDINGS: DIAGNOSTIC CATEGORY 1--NEGATIVE. NO CHANGE FROM COMPARISON ASSESSMENT. RIGHT BREAST: No significant suspicious finding. LEFT BREAST: No significant suspicious finding. RECOMMENDATIONS: ROUTINE MAMMOGRAM AND CLINICAL EVALUATION IN 12 MONTHS. PLEASE NOTE: A NORMAL MAMMOGRAM DOES NOT EXCLUDE THE POSSIBILITY OF BREAST CANCER. A CLINICALLY SUSPICIOUS PALPABLE LUMP SHOULD BE BIOPSIED. Dictated by: Matt Weaver MD on 01/11/2024 at 13:10 Approved by: Matt Weaver MD on 01/11/2024 at 13:11 Dictated By: Matt Weaver M.D. Signed By: 01/11/24 1312 DD/ 1311 TD/TT: Transverse Abdominal Muscle Surgeon:TBHRadiology, Radiologist, - 01/11/2024 [place] [address] Mammography Report Signed Patient: FE LINTON MR#: [id number] : 1980 Acct:[id number] Age/Sex: 43 / F ADM Date: 01/11/24 Loc: MAMMO Attending Dr: Fernando Garrido D.O. Ordering Physician: Fernando Garrido D.O. Results: Date of Service: 01/11/24 Follow Up: Procedure(s): MM tomosynthesis screening BI Accession Number(s): [id number] cc: Fernando Garrido D.O.; Physician,Non-Staff Marie Patient Name: FE LINTON MR#: [id number] : 1980 Exam Date: 01/11/2024 Ordering Doctor: DR Fernando Garrido . RADIOLOGY REPORT PROCEDURE: MM TOMOSYNTHESIS SCREENING BI COMPARISON: MG MAMM SCREEN 3D ROXI CAD, 12/19/2021. MM TOMOSYNTHESIS SCREENING BI, 01/01/2023. INDICATIONS: Screening Calculator Name NCI Breast Cancer Risk Assessment Tool 5 Year Breast Cancer Risk 0.70% Lifetime Breast Cancer Risk 9.90% Personal Breast Cancer No Personal Ovarian Cancer No Treatments None Family Cancers Father with lung cancer at age 53; Grandfather-paternal with lung cancer at age 70. LOCATION: [facility] BREAST COMPOSITION: The breasts are extremely dense, which lowers the sensitivity of mammography. FINDINGS: DIAGNOSTIC CATEGORY 1--NEGATIVE. NO CHANGE FROM COMPARISON ASSESSMENT. RIGHT BREAST: No significant suspicious finding. LEFT BREAST: No significant suspicious finding. RECOMMENDATIONS: ROUTINE MAMMOGRAM AND CLINICAL EVALUATION IN 12 MONTHS. PLEASE NOTE: A NORMAL MAMMOGRAM DOES NOT EXCLUDE THE POSSIBILITY OF BREAST CANCER. A CLINICALLY SUSPICIOUS PALPABLE LUMP SHOULD BE BIOPSIED. Dictated by: Matt Weaver MD on 01/11/2024 at 13:10 Approved by: Matt Weaver MD on 01/11/2024 at 13:11 Dictated By: Matt Weaver M.D. Signed By: 01/11/24 1312 DD/ 1311 TD/TT: Transverse Abdominal Muscle Surgeon: [facility] HospitalRadiology Study observation (narrative)[facility] TOMOSYNTHESIS SCREENING BIOrdered By: Radiologist Radiology on 50-57-8607PAVNGeneral Leonard [facility] Army Community Hospital Work Phone: cytology Cervical or vaginal smear or scraping study Ordered By: Gracia Stacy on 45-54-1130JTWF HealthcareCHEMISTRYOrdered By: SYSTEM SYSTEM on 59-06-6869Ojgzbvi [Mass/Vol]4.3 g/dLNormal3.3 - 5.0 gm/dLFT RemisolAlbumin/Globulin [Mass ratio]1.4 {ratio}Normal1.1 - 2.2[facility] RemisolALP [Catalytic activity/Vol]35 [iU]/gVamaki80 - 98 Int._Unit/LFTMC RemisolALT No additional P-5'-P [Catalytic activity/Vol]13 [iU]/dNormal6 - 46 Int._Unit/LFTMC RemisolAnion gap [Moles/Vol]9 mmol/LNormal6 - 16 mEq/LFTMC RemisolAST [Catalytic activity/Vol]16 [iU]/dNormal5 - 43 Int._Unit/LFTMC RemisolBilirubin [Mass/Vol] 0.4 mg/dLNormal0.0 - 1.1 mg/dLFTMC RemisolCalcium [Mass/Vol]9.8 mg/dLNormal8.9 - 11.1 mg/dLFTMC RemisolChloride [Moles/Vol]104 mmol/WZrxdfj776 - 111 mmol/LFTMC RemisolCO2 [Moles/Vol]30 mmol/VJkewcz14 - 31 mmol/LFTMC RemisolCreatinine [Mass/Vol]0.7 mg/dLNormal0.5 - 1.3 mg/dLFTMC RemisolGFR/1.73 sq M.predicted among non-blacks MDRD (S/P/Bld) [Vol rate/Area]111 mL/min/1.73 y1Tjdocy >=59mL/min/1.73 m2[facility] Chem SGlobulin (S) [Mass/Vol]3.0 g/dLNormal1.4 - 4.0 gm/dLFTMC RemisolGlucose [Mass/Vol]113 mg/rTExmqnj29 - 199 mg/dLFTMC Remisol Potassium [Moles/Vol]3.7 mmol/LNormal3.5 - 5.3 mmol/LFTMC RemisolProtein [Mass/Vol]7.3 g/dLNormal6.0 - 7.8 gm/dLFTMC RemisolSodium [Moles/Vol]139 mmol/L Zwmzhc495 - 145 mmol/LFTMC RemisolTSH Qn1.14 m[IU]/LNormal0.34 - 5.60 mcIU/mL [facility] RemisolUrea nitrogen [Mass/Vol]14 mg/dLNormal5 - 21 mg/dLFTMC RemisolUrea nitrogen/Creatinine [Mass ratio]20 mg/kzNeowxj56 - 20[facility] RemisolMyco/Ureaplasma Culton 63-38-6466Jatx/Ureaplasma Cult(NOTE)NormalMercy Parnassus CampusComment on above:Result Comment: Ureaplasma Species and Mycoplasma hominis Culture ARUP test code [id number] Collected: 05/01/2022 16:59 MT Started: 05/04/2022 12:46 MT Source: Genital Body Site: Genital Free Text Sources: Genital Final Report Culture negative for Mycoplasma hominis Culture negative for Ureaplasma spp Ureaplasma Species and Mycoplasma hominis Culture COLLECTED 05/01/2022 16:59 S=Susceptible, NonS=Nonsusceptible, IND=Indeterminate, I=Intermediate, SDD=Susceptibility is dose dependent, R=Resistant, None=Interpretive guidelines are not availablePerformed By: #### AUREMY #### [employer] [address] [place], [place] [id number] C.O.D. Biller: Toni Mcfarland MDVaginitis DNA Probeon 63-62-8530NpjmryrUlgjfucpGalion Community HospitalComment on above:Result Comment: for Brandon sp. Method of testing is a DNA probe intended for detection and identification of Brandon species, Gardnerella vaginalis, and Trichomonas vaginalis nucleic acid in vaginal fluid specimens from patients with symptoms of vaginitis/vaginosis. Performed By: #### VAGP #### Dorene [employer] [address] [place], [place] [id number] C.O.D. Biller: Porter GraffiveNCincinnati Children's Hospital Medical CenterComment on above:Result Comment: for Gardnerella vaginalis Performed By: #### VAGP #### Dorene [employer] [address] [place] [address] C.O.D. Biller: Jayesh GraffhomonasNegativeNormalMartin Memorial HospitalComment on above:Result Comment: for Trichomonas Vaginalis Performed By: #### VAGP #### [facility] [employer] [address] [place] [address] C.O.D. Biller: Juliocesar Graffginvivien DNA Probeon 26-82-7813Baekgxn Species, DNA ProbeNegativeNEGATIVEBON WILSON MEMORIAL HOSPITALComment on above:for Brandon sp. Method of testing is a DNA probe intended for detection and identification of Brandon species, Gardnerella vaginalis, and Trichomonas vaginalis nucleic acid in vaginal fluid specimens from patients with symptoms of vaginitis/vaginosis. Gardnerella Vaginalis, DNA ProbeNegativeNEGATIVEBON WILSON MEMORIAL HOSPITALComment on above:for Gardnerella vaginalisSource.VAGINAL SWABBON WILSON MEMORIAL HOSPITAL Trichomonas Vaginalis DNANegativeNEGATIVEMOUNTAIN VIEW REGIONAL MEDICAL CENTERComment on above:for Trichomonas VaginalisBON WILSON MEMORIAL HOSPITALSource.VAGINAL SWABNormal [facility] Children'S HospitalComment on above:Performed By: #### VAGP #### [facility] [employer] [address] [place] [address] C.O.D. Biller: Juliocesar Graffginvivien DNA Probeon 49-59-6600QsgryepLffwjugl NormalMartin Memorial HospitalComment on above:Result Comment: for Brandon sp. Method of testing is a DNA probe intended for detection and identification of Brandon species, Gardnerella vaginalis, and Trichomonas vaginalis nucleic acid in vaginal fluid specimens from patients with symptoms of vaginitis/vaginosis. Performed By: #### VAGP #### [facility] [employer] [address] [place] [address] C.O.D. Biller: Noelle GraffgativeNormalMartin Memorial HospitalComment on above:Result Comment: for Gardnerella vaginalis Performed By: #### VAGP #### [employer] [address], [place] [id number] C.O.D. Biller: Toni Mcfarland MDTrichomonasNegativeNoatrium health steele creekNEGAkron Children'S HospitalComment on above:Result Comment: for Trichomonas Vaginalis Performed By: #### VAGP #### [facility] [address], [place] [id number] C.O.D. Biller: Toni Mcfarland MDVaginitis DNA Probeon 58-96-7387Tvyirl.VAGINAL SWABNormalAkron Children'S HospitalComment on above:Performed By: #### VAGP #### [employer] [address], [place] [id number] C.O.D. Biller: TANA Graff MAMM SCREEN 3D ROXI CADon 53-28-5079FL MAMM SCREEN 3D ROXI CADPatient: FE LINTONAnthony Exam Date: 12/19/2021 : 1980 Gender:F Ordering : DR FERNANDO GARRIDO . Admission #: [id number] Family : Order #: [id number] CLICK HERE TO VIEW EXAM RADIOLOGY REPORT [...] lung cancer at age 70. LOCATION: [facility] BREAST COMPOSITION: Extremely dense, which lowers the [...] LUMP SHOULD BE BIOPSIED. Dictated by: Matt Weaver MD on 12/19/2021 at 08:22 Approved by: Matt Weaver MD on 12/19/2021 at 08:24[facility] ACOG PANEL 2: 30 to 65on 12-15-2021..NormalThe [facility] GeneralComcovenant medical center on above:Result Comment: Performed at: WBPerformed By: #### [id number] #### [facility] [address] [place] [address] Dr. Man ArroyoAge Gdln ACOG Morbpmk29-83SuugrhAojSuburban Community Hospital & Brentwood HospitalComment on above:Performed By: #### [id number] #### [facility] [address] [place] [address] Dr. Man ArrooyDIAGNOSIS:CommentOhioHealth Dublin Methodist Hospital on above: Result Comment: NEGATIVE FOR INTRAEPITHELIAL LESION OR MALIGNANCY. THIS SPECIMEN WAS RESCREENED PART OF OUR REGULATORY AFFAIRS SPEC PROGRAM. Performed at: WBPerformed By: #### [id number] #### [facility] [address] [place] [address] Dr. Man ArroyoHPV AptimaNegativeNormalNegativeBlanchard Valley Health System Blanchard Valley HospitalComcovenant medical center on above:Result Comment: This nucleic acid amplification test detects fourteen high-risk HPV types (16,18,31,33,35,39,45,51,52,56,58,59,66,68) without differentiation. Performed at: =GPerformed By: #### [id number] #### [facility] [address] [place] [address] Dr. Man ArroyoMethodology:CommentOhioHealth Dublin Methodist Hospital on above: Result Comment: This liquid based ThinPrep(R) pap test was screened with the use of an image guided system. Performed at: WBPerformed By: #### [id number] #### [facility] [address] [place] [address] Dr. Man ArroyoNote:CommentOhioHealth Dublin Methodist Hospital on above:Result Comment: The Pap smear is a screening test designed to aid in the detection of premalignant and malignant conditions of the uterine cervix. It is not a diagnostic procedure and should not be used as the sole means of detecting cervical cancer. Both false-positive and false-negative reports do occur. . Performed at: WBPerformed By: #### [id number] #### [facility] [address] [address] [address] Man ArroyoPerformed by:CommentOhioHealth Dublin Methodist Hospital on above: Result Comment: Jian Driscoll, Mushroom Cutter (ASC) Performed at: Performed By: #### [id number] #### [facility] [address] [place] [address] Dr. Man Noguera reviewed by:CommentOhioHealth Dublin Methodist Hospital on above:Result Comment: Orquidea Buchanan Mushroom Cutter Performed at: Performed By: #### [id number] #### [facility] [address] [place] [address] Dr. Man ArroyoSpecimen adequacy:[facility] on above:Result Comment: Satisfactory for evaluation. Endocervical and/or squamous metaplastic cells (endocervical component) are present. Performed at: Performed By: #### [id number] #### [facility] [address] [place] [address] Dr. Man PelayoC AUTO DIFFon 38-30-4445VNXZ #0.0 103/ulNormal0.0-0.1[facility] Blanchard Valley HospitalComment on above:Performed By: #### CBC #### [facility] [address] [place] [address] Dr. Man ArroyoBasophils/100 WBC (Bld)0.6 %Normal0.2-2.0[facility] Comment on above:Performed By: #### CBC #### [facility] [address] [place] [address] Dr. Man Carlson #0.1 103/ulNormal0.0-0.7The [facility] on above: Performed By: #### CBC #### [facility] [address] [place] [address] Dr. Man Abarcaosinophils/100 WBC (Bld)1.1 %Normal0.9-7.0[facility] Comment on above:Performed By: #### CBC #### [facility] [address] [place] [address] Dr. Man Abarcarythrocyte distribution width (RBC) [Ratio]12.2 %Vzhmtd46.0-15.0 [facility] GeneralComment on above:Performed By: #### CBC #### [facility] [address] [place] [address] Dr. Man ArroyoHematocrit (Bld) [Volume fraction]43.3 %Kbqiom57.0-48.0[facility] GeneralComment on above:Performed By: #### CBC #### [facility] [address] [place] [address] Dr. Man ArroyoHemoglobin (Bld) [Mass/Vol]14.4 g/iMTboony90.0-16.0[facility] GeneralComment on above:Performed By: #### CBC #### [facility] [address] [place] [address] Dr. Man Ulrich #0.02 10e3/ulNormal0.00-0.03The [facility] GeneralComment on above:Performed By: #### CBC #### [facility] [address] [place] [address] Dr. Man Ulrich %0.3 %Normal0.0-0.5The [facility] on above: Performed By: #### CBC #### [facility] [address] [place] [address] Dr. Man BishopH #1.7 103/ulNormal1.2-3.8[facility] GeneralComment on above:Performed By: #### CBC #### [facility] [address] [place] [address] Dr. Man Alexandramphocytes/100 WBC (Bld)27.7 %Ktlggv10.5-60.0[facility] GeneralComcovenant medical center on above:Performed By: #### CBC #### [facility] [address] [place] [address] Dr. Man ArroyoMANUAL DIFF REQNONormalThe [facility] GeneralComment on above: Performed By: #### CBC #### [facility] [address] [address] [address] Man Zaragoza (RBC) [Entitic mass]29.2 fyBjqnpf64.7-34.0[facility] GeneralComment on above:Performed By: #### CBC #### [facility] [address] [place] [address] Dr. Man Zaragoza (RBC) [Mass/Vol]33.3 g/vOErrjiy35.9-35.2[facility] GeneralComment on above:Performed By: #### CBC #### [facility] [address] [place] [address] Dr. Man Zaragoza (RBC) [Entitic vol]87.8 vJCsrvsz55.0-99.0[facility] GeneralComment on above:Performed By: #### CBC #### [facility] [address] [place] [address] Dr. Man Baca #0.5 103/ulNormal0.3-0.8The [facility] GeneralComment on above:Performed By: #### CBC #### [facility] [address] [place] [address] Dr. Man Mcgovernocytes/100 WBC (Bld)7.7 %Normal1.7-12.0The [facility] on above:Performed By: #### CBC #### [facility] [address] [place] [address] Dr. Man Carlos #3.9 103/ulNormal1.4-6.5The [facility] GeneralComment on above:Performed By: #### CBC #### [facility] [address] [place] [address] Dr. Man Salasutrophils/100 WBC (Bld)62.6 %Nyylgl70.0-75.0The [facility] GeneralComment on above:Performed By: #### CBC #### [facility] [address] [place] [address] Dr. Man Russell mean volume (Bld) [Entitic vol]9.7 fLNormal9.5-13.5The [facility] HospitalComment on above:Performed By: #### CBC #### [facility] [address] [place] [address] Dr. Man ArroyoPLT290 103/keLarwyc433-818Rep [facility] on above: Performed By: #### CBC #### [facility] [address] [place] [address] Dr. Man ArroyoRBC4.93 106/ulNormal4.20-5.40The [facility] on above:Performed By: #### CBC #### [facility] [address] [place] [address] Dr. Man ArroyoWBC6.2 103/ulNormal4.0-11.0The [facility] on above: Performed By: #### CBC #### [facility] [address] [place] [address] Dr. Man ArroyoCUURE URINEon 90-08-5143OWCHBEA URINECulture Observations: NO GROWTHAvita Health System Bucyrus HospitalComcovenant medical center on above:Performed By: #### CBC #### [facility] [address] [place] [address] Dr. Man ArroyoPOTASSIUMon 19-02-4355Eujemxnub [Moles/Vol]4.4 mmol/LNormal 3.5-5.1The [facility] on above:Performed By: #### CBC #### [facility] [address] [place] [address] Dr. Man ArroyoPRETrudy QUANT HCGon 32-11-2270LRI QUANT2 mIU/mLNormalThe [facility] on above:Performed By: #### CBC #### [facility] [address] [place] [address] Dr. Man Bowman RANGESEE BELOWOhioHealth Dublin Methodist Hospital on above: Result Comment: 5-50 0-1 WEEK 40-300 1-2 WEEKS 100-1,000 2-3 WEEKS 500-6,000 3-4 WEEKS 5,000-200,000 1-2 MONTHS 10,000-100,000 2-3 MONTHS 3,000-50,000 2ND TRIMESTER 1,000-50,000 3RD TRIMESTERPerformed By: #### CBC #### [facility] [address] [place] [address] Dr. Man Whitten (CLEAN/CATCH) MICROSCOPIC IF INDICATEon 31-59-0909Ovwrfeqew Ql (U)NegativeNormalNEGATIVEBlanchard Valley Health System [facility]ard Valley HospitalComment on above:Performed By: #### UARMICR #### [facility] [address] [place] [address] Dr. Man ArroyoClarity (U)CLEARNormalCLEARBlanchard Valley Health System [facility] Valley HospitalComment on above: Performed By: #### UARMICR #### [facility] [address] [place] [address] Dr. Man Magaña (U)LT. YELLOWNormalYELLOWBlanchard Valley Health System [facility]anchard Valley HospitalComment on above:Performed By: #### UARMICR #### [facility] [address] [place] [address] Dr. Man ArroyoGlucose Ql (U)NegativeNormalNEGCleveland Clinic Mercy HospitalComment on above:Performed By: #### UARMICR #### [facility] [address] [place] [address] Dr. Man ArroyoHemoglobin Ql (U)[facility] HospitalrmalAultman Hospital Comment on above:Performed By: #### UARMICR #### [facility] [address] [place] [address] Dr. Man ArroyoKetones Ql (U)15 mg/dlAbnormalAultman Hospital Comment on above:Performed By: #### UARMICR #### [facility] [address] [place] [address] Dr. Man ArroyoLEUKOCYTESNegativeNormalNEGCleveland Clinic Mercy HospitalComcovenant medical center on above:Performed By: #### UARMICR #### [facility] [address] [place] [address] Dr. Man ArroyoNitrite Ql (U)NegativeNormalNEGATIVEBlanchard Valley Health System Blanchard Valley HospitalComment on above:Performed By: #### UARMICR #### [facility] [address] [address] [address] Man ArroyopH (U)7.5 [pH]Normal5-9The [facility] GeneralComment on above: Performed By: #### UARMICR #### [facility] [address] [address] [address] Man ArroyoSPEC GRAVITY1.966Qejsco9.005-<=1.025The [facility] GeneralComment on above:Performed By: #### UARMICR #### [facility] [address] [place] [address] Dr. Man ArroyoUA PROTEINNegativeNormalNEGATIVE/ TRACEThe [facility] Comment on above:Performed By: #### UARMICR #### [facility] [address] [place] [address] Dr. Man ArroyoUR MICRO INDNOT INDICATEDNormalThe [facility] GeneralComment on above:Performed By: #### UARMICR #### [facility] [address] [place] [address] Dr. Man ArroyoUrobilinogen Qn (U)0.2 {Zoey'U}/dLNormal0.2 - 1.0The [facility] GeneralComment on above:Performed By: #### UARMICR #### [facility] [address] [place] [address] Dr. Man ArroyoCovid-19 PCR (CVDSAINT MARGARET'S HOSPITAL FOR W[facility])on 81-39-3819DEYY-CoV-2 (COVID-19) RNA BEBE+probe Ql (Unsp spec)Not detectedNormalNOT DETECTEDBlanchard Valley Health System [facility] Comment on above:Result Comment: This test is not yet approved or cleared by the [place] FDA. When there are no FDA-approved or cleared tests available, and other criteria are met, FDA can make tests available under an emergency access mechanism called an Emergency Use Authorization (EUA). The EUA for this test is supported by the Case Finishing Machine Adjuster of Health and Human Service's (HHS's) declaration that circumstances exist to justify the emergency use of in vitro diagnostics for the detection and/or diagnosis of the virus that causes COVID- 19. This EUA will remain in effect (meaning [...] of clinical signs and symptoms consistent with SARS-CoV-2.Performed By: #### CVDTB #### [facility] [address] [place] [address] Dr. Man ArroyoCHEMISTRYOrdered By: SYSTEM SYSTEM on 60-19-1490Ddhdyzy [Mass/Vol]4.5 g/dLNormal3.3 - 5.0 gm/dLFTMC RemisolAlbumin/Globulin [Mass ratio] 1.6 {ratio}Normal1.1 - 2.2[facility] RemisolALP [Catalytic activity/Vol]39 [iU]/d Byfohw80 - 98 Int._Unit/LFTMC RemisolALT No additional P-5'-P [Catalytic activity/Vol]19 [iU]/dNormal6 - 46 Int._Unit/LFTMC RemisolAnion gap [Moles/Vol] 13 mmol/LNormal6 - 16 mEq/LFTMC RemisolAST [Catalytic activity/Vol]18 [iU]/d Normal5 - 43 Int._Unit/LFTMC RemisolBilirubin [Mass/Vol]0.6 mg/dLNormal0.0 - 1.1 mg/dLFTMC RemisolBilirubin.direct [Mass/Vol]mg/dLNormal0.1 - 0.4 mg/dLFTMC RemisolBilirubin.indirect [Mass or moles/Vol]Unable to Calculate mg/dLInvalid Interpretation Code0.1 - 0.9 mg/dLFTMC RemisolCalcium [Mass/Vol]9.3 mg/dLNormal 8.9 - 11.1 mg/dLFTMC RemisolChloride [Moles/Vol]104 mmol/EJfowzu853 - 111 mmol/L [facility] RemisolCO2 [Moles/Vol]24 mmol/VQrbvhw11 - 31 mmol/LFTMC RemisolCreatinine [Mass/Vol]0.8 mg/dLNormal0.5 - 1.3 mg/dLFTMC RemisolGFR/1.73 sq M.predicted among blacks MDRD (S/P/Bld) [Vol rate/Area]mL/min/1.73 v3Hbdwgd>=59mL/min/1.73 m2[facility] Chem SGFR/1.73 sq M.predicted among non-blacks MDRD (S/P/Bld) [Vol rate/Area]mL/min/1.73 s7Pnnjzy>=59mL/min/1.73 m2[facility] Chem SGlobulin (S) [Mass/Vol]2.8 g/dLNormal1.4 - 4.0 gm/dLFTMC RemisolGlucose [Mass/Vol]102 mg/dL Wjytxu24 - 199 mg/dLFTMC RemisolLipase [Catalytic activity/Vol]34 U/UNcimmr39 - 58 unit/LFTMC RemisolPotassium [Moles/Vol]3.6 mmol/LNormal3.5 - 5.3 mmol/LFTMC RemisolProtein [Mass/Vol]7.3 g/dLNormal6.0 - 7.8 gm/dLFTMC RemisolSodium [Moles/Vol]137 mmol/KZomoxq134 - 145 mmol/LFTMC RemisolUrea nitrogen [Mass/Vol] 12 mg/dLNormal5 - 21 mg/dLFTMC RemisolUrea nitrogen/Creatinine [Mass ratio]15 mg/ljGzelxh50 - 20FT[facility] RemisolHEMATOLOGYOrdered By: SYSTEM SYSTEM on 06-20-2021 Basophils/100 WBC (Bld)0.8 %Normal0.0 - 2.0 %[facility] HemeAutoSSBasophils/Leukocytes Auto (Bld) [Pure # fraction]0.1 E9/LNormal0.0 - 0.2 E9/LFTMC HemeAutoSS Eosinophils/100 WBC (Bld)1.6 %Normal0.0 - 8.0 %[facility] HemeAutoSS Eosinophils/Leukocytes Auto (Bld) [Pure # fraction]0.1 E9/LNormal0.0 - 0.5 E9/L [facility] HemeAutoSSLymphocytes/100 WBC (Bld)24.6 %Mlfezo69.0 - 50.0 %[facility] HemeAutoSS Lymphocytes/Leukocytes Auto (Bld) [Pure # fraction]1.8 E9/LNormal1.0 - 4.0 E9/L [facility] HemeAutoSSMonocytes/100 WBC (Bld)9.2 %Normal4.0 - 14.0 %[facility] HemeAutoSS Monocytes/Leukocytes Auto (Bld) [Pure # fraction]0.7 E9/LNormal0.2 - 1.0 E9/L [facility] HemeAutoSSNeutrophils/100 WBC (Bld)63.8 %Yfaogq51.0 - 75.0 %[facility] HemeAutoSS Neutrophils/Leukocytes Auto (Bld) [Pure # fraction]4.7 E9/LNormal2.0 - 7.5 E9/L [facility] HemeAutoSSHEMATOLOGYOrdered By: Jaime Angel on 60-46-0277Gfmlsvimizz distribution width (RBC) [Ratio]13.6 %Yzbmyb52.9 - 14.2 %[facility] HemeAutoSS Hematocrit (Bld) [Volume fraction]40.5 %Fivebc97.0 - 46.0 %[facility] HemeAutoSS Hemoglobin (Bld) [Mass/Vol]13.7 g/hYSheydj48.0 - 16.0 gm/dLFTMC HemeAutoSSMCH (RBC) [Entitic mass]29.2 rtLbnvjc57.0 - 34.0 pgFTMC HemeAutoSSMCHC (RBC) [Mass/Vol]33.9 g/nSLttjee21.4 - 36.0 gm/dLFTMC HemeAutoSSMCV (RBC) [Entitic vol] 86.2 rPTqbact19.0 - 100.0 fLFTMC HemeAutoSSPlatelet mean volume (Bld) [Entitic vol]8.6 fLNormal6.4 - 10.8 fLFTMC HemeAutoSSPlatelets (Bld) [#/Vol]232.0 E9/L Bevmjs322.0 - 500.0 E9/LFTMC HemeAutoSSRBC (Bld) [#/Vol]4.7 E12/LNormal4.3 - 5.9 E12/LFTMC HemeAutoSSWBC corrected for nucl RBC Auto (Bld) [#/Vol]7.4 E9/LNormal 4.0 - 11.0 E9/LFTMC HemeAutoSSSEROLOGYOrdered By: Jaime Angel on 06-20-2021 HCG.beta subunit (U) [Moles/Vol]NegativeNormalBAILEY MEDICAL [facility] [place] Man SeroURINALYSISOrdered By: Jaime Angel on 14-06-0017Ybatktra LM Ql (Urine sed)1+ /HPFInvalid Interpretation CodeTrace/HPFFT UA Auto SSBilirubin Ql (U)Negative (06/20/21 11:22 PM)NormalNegativeBAILEY MEDICAL [facility] [place] UA Auto SSClarity (U)Clear (06/20/21 11:22 PM)NormalClearFSOUTHWESTERN MEDICAL [facility] [place] UA Auto SSColor (U)Yellow (06/20/21 11:22 PM)NormalYellowBAILEY MEDICAL CENTER – [place] UA Auto SSEpithelial cells.squamous LM.HPF (Urine sed) [#/Area]0-2 /HPFNormal0-2/HPFBAILEY MEDICAL CENTER – [place] UA Auto SSGlucose Test strip (U) [Mass/Vol]Negative (06/20/21 11:22 PM)NormalNegativeBAILEY MEDICAL [facility] [place] UA Auto SSHemoglobin Ql (U)Negative (06/20/21 11:22 PM)NormalNegativeBAILEY MEDICAL [facility] [place] UA Auto SSKetones (U) [Mass/Vol]Negative (06/20/21 11:22 PM)NormalNegativeBAILEY MEDICAL [facility] [place] UA Auto SSLithium.plasma/[place].RBC (Bld) [Mass ratio]0-3 /HPFNormal0-3/HPFBAILEY MEDICAL CENTER – [place] UA Auto SSNitrite Ql (U)Negative (06/20/21 11:22 PM)NormalNegativeBAILEY MEDICAL [facility] [place] UA Auto SSpH (U)6.0 *NA* (06/20/21 11:22 PM)Invalid Interpretation Code5.0 - 9.0[facility] [place] UA Auto SSProtein (U) [Mass/Vol]Negative (06/20/21 11:22 PM)NormalNegativeBAILEY MEDICAL [facility] [place] UA Auto SSSpecific gravity (U) [Rel density]1.020 *NA* (06/20/21 11:22 PM)Invalid Interpretation Code1.005 - 1.030[facility] [place] [place] UA Auto SSUA Spec DescClean Catch (06/20/21 11:22 PM)NormalBAILEY MEDICAL CENTER – [place] UA Auto SSUrobilinogen Qn (U)0.8819516 {Zoey'U}/dLNormal0.0 - 1.0 EU/dLBAILEY MEDICAL CENTER – [place] UA Auto SSWBC Auto Ql (U)Trace *ABN* (06/20/21 11:22 PM)Invalid Interpretation CodeNegativeBAILEY MEDICAL [facility] [place] UA Auto SSWBC LM.HPF (Urine sed) [#/Area]6-15 /HPFInvalid Interpretation Code0-5/HPFBAILEY MEDICAL CENTER – [place] UA Auto SSUS PELVIS AND TRANSVAGon 60-46-8208EM PELVIS AND TRANSVAGEXAMINATION: US PELVIS AND TRANSVAG HISTORY: Pelvic and [...] functional cyst favored Electronically authenticated by: MATT WEAVER Date: 2021-06-07 07:08[facility] HospitalCHLAMYDIA/GONOCOCCUS BEBE (SWAB/URINE/PAPon 27-54-8313Mirgkwjqb trachomatis, NAANegativeNormalNegativeBlanchard Valley [facility] System [facility] Valley HospitalComment on above: Performed By: #### CT/NGNA #### [facility] [address] [address] [address] Man ArroyoNeisseria gonorrhoeae, NAANegativeNormalNegativeThe [facility] GeneralComment on above:Performed By: #### CT/NGNA #### [facility] [address] [place], [place] [address] Dr. Man ArroyoUS PELVIS AND TRANSVAGon 21-79-7573TP PELVIS AND TRANSVAG EXAMINATION: US PELVIS AND [...] Electronically authenticated by: SHARAD TREVIZO Date: 2021-01-29 16:[address] [place] [address] AUTO DIFFon 31-85-8768WISH #0.1 103/ulNormal0.0-0.1[facility] Valley HospitalComment on above:Performed By: #### CBC #### [facility] [address] [place] [address] Dr. Man ArroyoBasophils/100 WBC (Bld)0.7 %Normal0.2-2.0[facility] Comment on above:Performed By: #### CBC #### [facility] [address] [place] [address] Dr. Man Carlson #0.1 103/ulNormal0.0-0.7The [facility] GeneralComment on above: Performed By: #### CBC #### [facility] [address] [place] [address] Dr. Man Abarcaosinophils/100 WBC (Bld)1.0 %Normal0.9-7.0The [facility] Comment on above:Performed By: #### CBC #### [facility] [address] [place] [address] Dr. Man Abarcarythrocyte distribution width (RBC) [Ratio]12.5 %Gthvdt88.0-15.0 The [facility] GeneralComment on above:Performed By: #### CBC #### [facility] [address] [place] [address] Dr. Man ArroyoHematocrit (Bld) [Volume fraction]42.2 %Diolcv89.0-48.0The [facility] GeneralComment on above:Performed By: #### CBC #### [facility] [address] [place] [address] Dr. Man ArroyoHemoglobin (Bld) [Mass/Vol]14.0 g/cEQxxfvw87.0-16.0The [facility] GeneralComment on above:Performed By: #### CBC #### [facility] [address] [place] [address] Dr. Man ArroyoIG #0.02 10e3/ulNormal0.00-0.03The [facility] GeneralComment on above:Performed By: #### CBC #### [facility] [address] [place] [address] Dr. Man ArroyoIG %0.2 %Normal0.0-0.5The [facility] GeneralComment on above: Performed By: #### CBC #### [facility] [address] [place] [address] Dr. Man Casas #2.7 103/ulNormal1.2-3.8The [facility] GeneralComment on above:Performed By: #### CBC #### [facility] [address] [place] [address] Dr. Man Alexandramphocytes/100 WBC (Bld)26.6 %Yqfrff72.5-60.0The [facility] GeneralComment on above:Performed By: #### CBC #### [facility] [address] [place] [address] Dr. Man MensahUAL DIFF REQNONormalThe [facility] GeneralComment on above: Performed By: #### CBC #### [facility] [address] [place] [address] Dr. Man Carranza (RBC) [Entitic mass]29.0 zvHezoix08.7-34.0The [facility] GeneralComment on above:Performed By: #### CBC #### [facility] [address] [place] [address] Dr. Man Zaragoza (RBC) [Mass/Vol]33.2 g/mJMtduhp04.9-35.2The [facility] GeneralComment on above:Performed By: #### CBC #### [facility] [address] [place] [address] Dr. Man Gonzales (RBC) [Entitic vol]87.6 uPFkgzyq37.0-99.0The [facility] GeneralComment on above:Performed By: #### CBC #### [facility] [address] [place] [address] Dr. Man Baca #0.7 103/ulNormal0.3-0.8The [facility] GeneralComment on above:Performed By: #### CBC #### [facility] [address] [place] [address] Dr. Man Mcgovernocytes/100 WBC (Bld)7.0 %Normal1.7-12.0The [facility] Comment on above:Performed By: #### CBC #### [facility] [address] [place] [address] Dr. Man Carlos #6.6 103/ulCritically high1.4-6.5The [facility] Comment on above:Performed By: #### CBC #### [facility] [address] [place] [address] Dr. Man Salasutrophils/100 WBC (Bld)64.5 %Gokcus70.0-75.0The [facility] GeneralComment on above:Performed By: #### CBC #### [facility] [address] [place] [address] Dr. Man Davislet mean volume (Bld) [Entitic vol]10.4 fLNormal9.5-13.5The [facility] GeneralComment on above:Performed By: #### CBC #### [facility] [address] [place] [address] Dr. Man ArroyoPLT255 103/ieWlgdhe608-255Ixy [facility] GeneralComment on above: Performed By: #### CBC #### [facility] [address] [place] [address] Dr. Man ArroyoRBC4.82 106/ulNormal4.20-5.40The [facility] GeneralComment on above:Performed By: #### CBC #### [facility] [address] [place] [address] Dr. Man ArroyoWBC10.2 103/ulNormal4.0-11.0The [facility] GeneralComment on above:Performed By: #### CBC #### [facility] [address] [place] [address] Dr. Man ArroyoCT ABD/PELV W CONon 04-91-4561ZQ ABD/PELV W CONEXAMINATION: CT ABD/PELV W CON HISTORY: UNSPECIFIED ABDOMINAL [...] Electronically authenticated by: Renee URRUTIA Date: 2021-01-26 03:42NormCrystal Clinic Orthopedic Center HospitalCULTURE URINEon 10-80-8302GRXMUUR URINECulture Observations: No growthNoSuburban Community Hospital & Brentwood HospitalComment on above:Performed By: #### CBC #### [facility] [address] [address] [address] Man Raya URINE PROFILEon 66-51-3021Ivfusomte Ql (U)NegativeNormal NEGATIVEBlanchard Valley Health System [facility]anch[facility] Valley HospitalComment on above:Performed By: #### ERUR, PREGU, UMICRO #### [facility] [address] [place] [address] Dr. Man ArroyoClarity (U)CLEARNormalCLEARBlanchard Valley Health System [facility] Valley HospitalComment on above: Performed By: #### ERUR, PREGU, UMICRO #### [facility] [address] [address] [address] Man Magaña (U)LT. YELLOWNormalYELLOWBlanchard Valley Health System [facility] Valley HospitalComment on above:Performed By: #### ERUR, PREGU, UMICRO #### [facility] [address] [place] [address] Dr. Man Howard micrscopic examination will be performed if indicated. NormalBlanchard Valley Health System Blanchard Valley HospitalComment on above:Performed By: #### ERUR, PREGU, UMICRO #### [facility] [address] [place] [address] Dr. Man ArroyoGlucose Ql (U)NegativeNormalNEGATIVEBlanchard Valley Health System [facility] Valley HospitalComment on above:Performed By: #### ERUR, PREGU, UMICRO #### [facility] [address] [place] [address] Dr. Man ArroyoHemoglobin Ql (U)NegativeNormalNEGATIVEBlanchard Valley Health System [facility] Comment on above:Performed By: #### ERUR, PREGU, UMICRO #### [facility] [address] [place] [address] Dr. Man Lam Ql (U)NegativeNormalNEGATIVEThe [facility] GeneralComment on above:Performed By: #### ERUR PREGU, UMICRO #### [facility] [address] [address] [address] Man HuynhOCYTESSMALLAbnormalNEGATIVEThe [facility] GeneralComment on above:Performed By: #### ERUR, PREGU, UMICRO #### [facility] [address] [address] [address] Man De La Garza Ql (U)NegativeNormalNEGATIVEThe [facility] GeneralComment on above:Performed By: #### THEOR PREGU, UMICRO #### [facility] [address] [place] [address] Dr. Man ArroyopH (U)6.0 [pH]Normal5-9The [facility] GeneralComment on above: Performed By: #### ESTEFANY PREGU, UMICRO #### [facility] [address] [place] [address] Dr. Man ArroyoSPEC GRAVITY1.651Ogdeft7.005-<=1.025The [facility] GeneralComment on above:Performed By: #### ESTEFANY PREGU, UMICRO #### [facility] [address] [place] [address] Dr. Man ArroyoUA PROTEINNegativeNormalNEGATIVE/ TRACEThe [facility] Comment on above:Performed By: #### ERUR, PREGU, UMICRO #### [facility] [address] [place] [address] Dr. Man Santizo MICRO INDINDICATEDNormalThe [facility] GeneralComment on above: Performed By: #### ERUR, PREGU, UMICRO #### [facility] [address] [place] [address] Dr. Man Jurado Qn (U)0.2 {Zoey'U}/dLNormal0.2 - 1.0The [facility] HospitalComment on above:Performed By: #### ERUR, PREGU, UMICRO #### [facility] [address] [place] [address] Dr. Man BarkerASEon 91-67-0270Wpxcle [Catalytic activity/Vol]89.0 U/LNormal 23.0-300.0The [facility] GeneralComment on above:Performed By: #### LIPA, CMP #### [facility] [address] [place] [address] Dr. Man ArroyoPREGNANCY URon 11-27-2758NOVASVVUN, QUALNegativeNormalNEGATIVEThe [facility] HospitalComment on above:Performed By: #### ERUR, PREGU, UMICRO #### [facility] [address] [place] [address] Dr. Man ArroyoPROConstance 14(COMP METB)on 24-17-5464Bkwyyrz [Mass/Vol]4.2 g/dLNormal 3.5-5.0The [facility] GeneralComment on above:Performed By: #### LIPA, CMP #### [facility] [address] [place] [address] Dr. Man ArroyoAlbumin/Globulin [Mass ratio]1.2 {ratio}NormalThe [facility] GeneralComment on above:Performed By: #### LIPA, CMP #### [facility] [address] [place] [address] Dr. Man Chambers [Catalytic activity/Vol]38 U/SWjprkg91-906Usk [facility] GeneralComment on above:Performed By: #### LIPA, CMP #### [facility] [address] [place] [address] Dr. Man Schwartz [Catalytic activity/Vol]29 U/LNormal9-52The [facility] Comment on above:Performed By: #### LIPA, CMP #### [facility] [address] [place] [address] Dr. Man Sequeira gap [Moles/Vol]12.5 mmol/LNormalThe [facility] Comment on above:Performed By: #### LIPA, CMP #### [facility] [address] [place] [address] Dr. Man ArroyoAST [Catalytic activity/Vol]17 U/GJggozt92-46Pur [facility] GeneralComment on above:Performed By: #### LIPA, CMP #### [facility] [address] [address] [address] Man ArroyoBilirubin [Mass/Vol]0.7 mg/dLNormal0.2-1.3The [facility] Comment on above:Performed By: #### LIPA, CMP #### [facility] [address] [place] [address] Dr. Man ArroyoCalcium [Mass/Vol]9.1 mg/dLNormal8.4-10.2The [facility] Comment on above:Performed By: #### LIPA, CMP #### [facility] [address] [place] [address] Dr. Man ArroyoChloride [Moles/Vol]102 mmol/EPryrmt12-004Tgr [facility] Comment on above:Performed By: #### LIPA, CMP #### [facility] [address] [place] [address] Dr. Man ArroyoCO2 [Moles/Vol]26.5 mmol/LKbizwj62.0-30.0[facility] Comment on above:Performed By: #### LIPA, CMP #### [facility] [address] [place] [address] Dr. Man ArroyoCreatinine [Mass/Vol]0.85 mg/dLNormal0.52-1.04[facility] GeneralComment on above:Performed By: #### LIPA, CMP #### [facility] [address] [place] [address] Dr. Conway ChangEGFR-AF FILIPINO>60Normal>=60[facility] GeneralComment on above:Performed By: #### LIPA, CMP #### [facility] [address] [place] [address] Dr. Man AbarcaGFR-NON AF FILIPINO>60Normal>=60[facility] GeneralComment on above:Performed By: #### LIPA, CMP #### [facility] [address] [address] [address] Man ArroyoGlobulin (S) [Mass/Vol]3.5 g/dLNormVeterans Health AdministrationComment on above:Performed By: #### LIPA, CMP #### [facility] [address] [address] [address] Man ArroyoGlucose [Mass/Vol]122 mg/dLCritically xdht11-827Jzs [facility] GeneralComment on above:Performed By: #### LIPA, CMP #### [facility] [address] [address] [address] Man ArroyoPotassium [Moles/Vol]3.0 mmol/LCritically low3.4-5.0[facility] GeneralComment on above:Performed By: #### LIPA, CMP #### [facility] [address] [address] [address] Man ArroyoProtein [Mass/Vol]7.7 g/dLNormal6.1-8.2[facility] Comment on above:Performed By: #### LIPA, CMP #### [facility] [address] [address] [address] Man ArroyoSodium [Moles/Vol]138 mmol/DRophhj677-463Zph [facility] Comment on above:Performed By: #### LIPA, CMP #### [facility] [address] [address] [address] Man ArroyoUrea nitrogen [Mass/Vol]10.0 mg/dLNormal7.0-17.0[facility] GeneralComment on above:Performed By: #### LIPA, CMP #### [facility] [address] [address] [address] Man ArroyoUrea nitrogen/Creatinine [Mass ratio]11.8 mg/mgNoSuburban Community Hospital & Brentwood HospitalComment on above:Performed By: #### LIPA, CMP #### [facility] [address] [address] [address] Man ArroyoURINE MICROSCOPIC ONLYon 73-51-7268XZBPFKMZFXXDGRfahexntPXJN SEEN [facility] GeneralComment on above:Performed By: #### CBC #### [facility] [address] [address] [address] Man Swain identified Cx Nom (U)INDICATEDNoalThOhioHealth Arthur G.H. Bing, MD, Cancer CenterComment on above:Performed By: #### CBC #### [facility] [address] [place] [address] Dr. Man ArroyoCASTOTONIELE SEENNormalNONE SEENBlanchard Valley Health System [facility] HospitalComcovenant medical center on above:Performed By: #### CBC #### [facility] [address] [address] [address] Man Terryystals LM Nom (Urine sed)NONE SEENNormalNONE SEENDiley Ridge Medical Center on above:Performed By: #### CBC #### [facility] [address] [place] [address] Dr. Man Pattonthelialan cells LM Ql (Urine sed)FEWAbnormalNONE SEEN /RAREThe [facility] GeneralComcovenant medical center on above:Performed By: #### CBC #### [facility] [address] [place] [address] Dr. Man MaddenCOUSNONE SEENNormalNONE SEENDiley Ridge Medical Center on above:Performed By: #### CBC #### [facility] [address] [place] [address] Dr. Man Castorena SEENAbrmal0-2[facility] on above: Performed By: #### CBC #### [facility] [address] [place] [address] Dr. Man HernandezBC0-2AbnormalNONE SEENBlanchard Valley Health System [facility] HospitalComcovenant medical center on above: Performed By: #### CBC #### [facility] [address] [place] [address] Dr. Man Marie PREPon 96-65-5520IWLL CELLSNONE SEENNormalNONE SEENDiley Ridge Medical Center on above:Performed By: #### CBC #### [facility] [address] [place] [address] Dr. Yilan ChangFUNGAL ELEMENTSNONE SEENNormalNONE SEENBlanchard Valley Health [facility] Comment on above:Performed By: #### CBC #### [facility] [address] [address] [address] Man ArroyoRBC -WET PREPNONE SEENNormalNONE SEENBlanchard Valley Health System Blanch[facility] Valley HospitalComment on above:Performed By: #### CBC #### [facility] [address] [address] [address] Man ArroyoTRICHOMONASNONE SEENNormalNONE SEENBlanchard Valley Health System Bl[facility]ard Valley HospitalComment on above:Performed By: #### CBC #### [facility] [address] [address] [address] Man ArroyoWBC- WET PREPMODERATEAbnormalNONE SEENBlanchard Valley Health [facility] Comment on above:Performed By: #### CBC #### [facility] [address] [address] [address] Man Marie PREP BACTERIAFEWAbnormalNONE SEENBlanchard Valley Health System Blanchard Valley HospitalComment on above:Performed By: #### CBC #### [facility] [address] [address] [address] Man Herbert [id number] (IRVINGONGPuneet) FE LINTON ([id number]) 1980 F Date Time Provider Department 10/14/20 NO PCP XAVIER During your visit today, we recorded the following information about you: Tyesha Ponce 10/14/2020 2:11 PM Signed Pt is not established at [facility] or within [facility]. Call received from Brooke hogshead cooper at Dr Garrido's office. Brooke is asking if a SAND FILLER provider at [facility] office is able to evaluate and treat vulvodynia. 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 Dr Garrido's office call back # is [phone]. ADILENE Bauman MD 10/14/2020 2:18 PM Signed If has diagnosis of vulvodynia should schedule with urogyn Lisa Horton RN 10/14/2020 2:41 PM Signed Call placed to Brooke and providers message reviewed with Brooke who verbalized understanding Lisa Horton RN Allergies As of Date: 10/14/2020 (Not on File) Date Reviewed: Never Reviewed Reason for Visit: vulvodynia [Other] Problem List As Of Date: 10/14/2020 (None) Encounter Status:Closed by LISA HORTON RN [facility]20[facility] Vital Signs Date TimeVital SignValuePerforming MywhpglejZvasoebo80-32-5173 13:07-0400Body jivevg034.2 cmClayton Sim MD Work Phone: [facility] HospitalOchimeopmq80-44-3331 13:07-0400Body mass index (BMI) [Ratio]22.24 kg/b0FooinqClayton Sim MD Work Phone: [facility] HospitalJjdmpwexub22-96-7628 13:07-0400Body aicrps20.41 kgClayton Sim MD Work Phone: [facility] HospitalDnvfwlwecp85-56-3242 13:07-0400Diastolic blood ghauyetl31 mm[Hg]Clayton Sim MD Work Phone: [facility] HospitalKjsvtfmbeu58-05-9356 13:07-0400Heart rate74 /min Clayton Sim MD Work Phone: [facility] HospitalWvtagzexht07-29-6150 13:07-0400Systolic blood mdtcukho843 mm[Hg]Clayton Sim MD Work Phone: [facility] HospitalYnjlxefxlk51-54-4288 08:14-0500Blood Pressure Nancy Alarcon [phone]-XdebiMercer County Community Hospital 04-14-2024 08:14-0500Diastolic blood mm[Hg]Elba Rebecca [phone]-PllliMercer County Community Hospital 04-14-2024 08:14-0500Heart rate70 /minPooja Rebecca 212-0200Ikhgns-BpibiMercer County Community Hospital 04-14-2024 08:14-0500Respiratory rate16 /minPooja Rebecca 352-5549Nrcrcg-NpjtcMercer County Community Hospital 04-14-2024 08:14-6555EdM3% (BldA) [Mass fraction]99 %Elba Rebecca 479-7891Qclouf-CezpsMercer County Community Hospital 04-14-2024 08:14-0500Systolic blood cezypduj594 mm[Hg]Elba Rebecca [phone]-BwmgfMercer County Community Hospital 01-05-2024 16:27-0500Body mass index (BMI) [Ratio]22.21 kg/a0Fciax Radhika DO Work Phone: [facility] HospitalBxwmkbsiac55-58-4565 16:27-0500Body mseeis20.32 kgCorey Radhika DO Work Phone: [facility] HospitalJwynhnytyr82-41-9621 16:27-0500Diastolic blood vvsuomwg44 mm[Hg]Fernando Radhika DO Work Phone: [facility] HospitalNpamjnuuqe58-37-1919 16:27-0500Systolic blood uwwtgwge690 mm[Hg]Fernando Radhika DO Work Phone: [facility] HospitalFngjrfdkms19-94-0197 16:13-0500Blood Pressure LocationHaley ROBUCK [phone]-LcmryMercer County Community Hospital 02-09-2023 16:13-0500Diastolic blood uzgaprsb52 mm[Hg]Reanna ROBUCK [phone]-SdsxkMercer County Community Hospital 02-09-2023 16:13-0500Heart rate80 /minHaley ROBUCK [phone]-NzsohMercer County Community Hospital 02-09-2023 16:13-2174MrY9% (BldA) [Mass fraction]97 %Reanna ROBUCK [phone]-Ajiyg[address] [place] [address] 02-09-2023 16:13-0500Systolic blood hxlzoxuw220 mm[Hg]Reanna ROBUCK 400-0974Rcsffb-Qgbzh[address] [place] [address] 11-10-2022 16:42-0400Diastolic blood ogwgszgi76 mm[Hg]Reanna ROBUCK 318-1216Qrztqc-Wveaj[address] [place] [address] 11-10-2022 16:42-0400Heart rate68 /minHaley ROBUCK 683-2051Mpbptc-Zimay[address] [place] [address] 11-10-2022 16:42-9610AwO5% (BldA) [Mass fraction]100 %Reanna ROBUCK 358-4399Ozowhd-OncopMercer County Community Hospital 11-10-2022 16:42-0400Systolic blood phvilbjm049 mm[Hg]Reanna ROBUCK 577-2985Rwmcns-CmrifMercer County Community Hospital 07-03-2021 13:42-0400Blood Pressure LocationHaley ROBUCK [phone]-KetjaMercer County Community Hospital 05-05-2022 13:42-0400Diastolic blood odlegftx90 mm[Hg] Reanna ROBUCK 502-3598Ftagsy-DrddsMercer County Community Hospital 05-05-2022 13:42-0400Heart rate87 /minHalcelia ROBUCK 734-3451Ztgppt-MezasMercer County Community Hospital 05-05-2022 13:42-5334QuI6% (BldA) [Mass fraction]98 % Reanna WHITLEY 337-2181Iyyiaq-QejexMercer County Community Hospital 05-05-2022 13:42-0400Systolic blood fklknizr656 mm[Hg] Reanna WHITLEY 034-9005Lweldk-TamnrMercer County Community Hospital 04-23-2022 01:11-0400Body jqycylkpnpl58.42 [degF]Shen Mayda [address] [place], [place] 8500704-23-2022 01:11-0400 Diastolic blood lwuolpuv69 mm[Hg]Shen Mayda [address] [place], [place] 8500704-23-2022 01:11-0400Heart rate64 /minNoah Mayda [address] [place], [place] 8500704-23-2022 01:11-0400Mean blood rkuqkmyh76 mm[Hg]Shen Mayda [address] [place], [place] 8500704-23-2022 01:11-0400 Respiratory rate16 /minNoah Mayda [address] [place], [place] 8500704-23-2022 01:11-4018ElY6% (BldA) [Mass fraction]98 %Shen Mayda [address] [place], [place] 8500704-23-2022 01:11-0400 Systolic blood zsojaxyx642 mm[Hg]Shen Mayda [address] [place], [place] 8500704-23-2022 00:21-0400Body lekwneercjv70.42 [degF]Shen Mayda [address] [place], [place] 8500704-23-2022 00:21-0400 Diastolic blood ouqyvlnc85 mm[Hg]Shen Mayda [address] [place], [place] 8500704-23-2022 00:21-0400Heart rate72 /minNoah Mayda [address] [place], [place] 8500704-23-2022 00:21-0400Mean blood toasmnbn89 mm[Hg]Shen Mayda [address] [place], [place] 5052504-23-2022 00:21-0400 Respiratory rate16 /minNoah Mayda [address] [place], [place] 5052504-23-2022 00:21-1982IeJ4% (BldA) [Mass fraction]99 %Shen Mayda [address] [place], [place] 5052504-23-2022 00:21-0400 Systolic blood umgtdlnd027 mm[Hg]Shen Mayda [address] [place], [place] 5052504-22-2022 22:58-0400Body eeuplycssyv60.88 [degF]Shen Mayda [address] [place], [place] 5052504-22-2022 22:58-0400 Diastolic blood cajkyibv02 mm[Hg]Shen Mayda [address] [place], [place] 5052504-22-2022 22:58-0400Heart rate81 /minNoah Mayda [address] [place], [place] 8500704-22-2022 22:58-0400 Respiratory rate16 /minNoah Mayda [address] [place], [place] 8500704-22-2022 22:58-3673KgZ4% (BldA) [Mass fraction]99 %Shen Mayda [address] [place], [place] 8500704-22-2022 22:58-0400 Systolic blood nrtorvgt457 mm[Hg]Shen Mayda [address] [place] [address] Encounters Encounter DateEncounter TypeCare ProviderFacilityStart: 06-26-2024 End: 97-86-3403ittoduhyfgZggrlc Brandi TimbrigidosFacility:FTMCStart: 06-26-2024 End: 93-58-6494Nndfetf encounter procedureClayton Sim [facility] Start: 06-26-2024 End: 76-70-5607Csmqiadlk Result EncounterClayton Sim MD Work Phone: noms External Department UnsolicitedStart: 06-26-2024 End: 05-74-2163Lutdnsefr Result EncounterClayton Sim MD Work Phone: noms External Department UnsolicitedStart: 06-21-2024 End: 54-99-2548Fxcqoq outpatient new 30 minutesClayton Sim MD Work Phone: noms CI ENTComment on above:Asymmetric SNHL (sensorineural hearing loss) (Primary Dx); Left-sided tinnitusStart: 06-21-2024 End: 11-79-3963iimiolkmdpZWILGB H TIMMISNot AvailableStart: 06-20-2024 End: 52-01-8016Aiglyve encounter procedureEmily Blunt AUD Work Phone: NOMARTÍNK TYRESE AUDIOLOGYComment on above: Sensorineural hearing loss, bilateral (Primary Dx); Tinnitus, bilateralStart: 06-20-2024 End: 24-60-2443cakzhwfxahUQCFCGB S WRIGHTNot AvailableStart: 06-20-2024 End: 50-47-2890Hvilww flowsMir Blunt AUD Work Phone: NOOTESSRenee BENEDICT AUDIOLOGYStart: 06-20-2024 End: 92-46-4295Wfekxo Seth Blunt AUD Work Phone: NOKTESSRenee BENEDICT AUDIOLOGYStart: 04-14-2024 End: 76-14-2484mowonumvvpOdnfh AdhikariFacility:FTMCStart: 04-14-2024 End: 40-82-5972Axv Drop offPooarmond Solanori [facility] Start: 04-14-2024 End: 04-43-0129clsejtwxbmLlgyy RussriFacility:[facility] HospitalStart: 04-14-2024 End: 65-05-8275Shxdvlr encounter procedurePooarmond Solanori [phone]-PfcceMercer County Community Hospital Start: 04-14-2024 End: 22-58-5225Clnduoq examination statusPooarmond Alarcon [phone]-GdzmfMercer County Community Hospital Start: 01-11-2024 End: 76-02-2962Szduzwumx Result EncounterCorey Radhika DO Work Phone: noms External Department UnsolicitedStart: 01-11-2024 End: 95-32-3147Vmgswhppl Result EncounterCorey Radhika DO Work Phone: noms External Department UnsolicitedStart: 01-05-2024 End: 51-95-1116Mcamwnc encounter procedureCorey Radhika DO Work Phone: [facility] Work Phone: Start: 01-05-2024 End: 16-27-0853Syaclhla preventive med est patient 40-64yrsCorey Radhika DO Work Phone: noms BCP OBComment on above:Well woman exam with routine gynecological exam; Breast cancer screening by mammogramStart: 01-05-2024 End: 28-34-5806myvgwrhccnVFCOB FAZIONot AvailableStart: 01-05-2024 End: 92-92-9518Allyiv flowsheetCorey Radhika DO Work Phone: noms BCP OBStart: 01-05-2024 End: 55-10-4815Yxzssa flowsheetCorey Radhika DO Work Phone: NOKO BCP OBStart: 01-05-2024 End: 82-50-5953Caxehwgnb Result EncounterCorey Radhika DO Work Phone: NOZT External Department UnsolicitedStart: 02-09-2023 End: 40-35-6299Gnybklh encounter procedureReanna WHITLEY [phone]-NjtmaMercer County Community Hospital Start: 11-11-2022 End: 44-57-6180Opkawiv encounter procedureReanna WHITLEY [facility] Start: 11-10-2022 End: 25-02-4364Jhqxwxz encounter procedureReanna WHITLEY [phone]-WcmtsMercer County Community Hospital Start: 06-09-2022 End: 63-05-0744Grnujpwppm hospital visit by Angela Romero Physical TherapyComment on above:Canceled (Patient)Start: 06-03-2022 End: 31-51-6066sqwynsuxtvCWVYHBlue Mountain Hospital Start: 06-03-2022 End: 47-24-9178Eztgztnplt hospital visit by Neema Fields PTSILAN [facility] TherapyStart: 05-27-2022 End: 09-11-8446aywppuxihsAESJF [facility] Start: 05-27-2022 End: 77-97-0820Detnmdaeiw hospital visit by Neema ELAINE [facility] TherapyStart: 05-01-2022 End: 85-16-0618yppejjdciwQZWQN [facility] Centertart: 05-01-2022 End: 40-99-6656Zlcvluizep hospital visit by Steffany Garrido MD Work Phone: stVZ [place] LAB DOCTORComment on above:Vaginal discharge; [place] Flats's gland cystStart: 03-16-2022 End: 58-12-4830ihzyylymwzEMREL R KOLAKOWSKIMercy Parn[facility] Start: 12-19-2021 End: 29-68-5670snyjphovctUT FERNANDO FAZIOFacility:D8Wieig: 12-08-2021 End: 05-59-7355jywkabcdakTC FERNANDO FAZIOFacility:X6Oquhl: 07-03-2021 End: 24-75-9862Pwrowft encounter procedureReanna WHITLEY [phone]-LksrsMercer County Community Hospital Start: 77-36-2613Ianxcodwa for preprocedural laboratory examinationDR FERNANDO FAZahira Flower Hospitaltart: 06-27-2021 End: 88-54-9778tzixlofgoaJG FERNANDO FAZIOFacility:F8Ufyml: 06-26-2021 End: 97-80-2121Asbvuss encounter procedureDaniela Laughlin 173-2015Fvtdgw-OnbfdParma [facility] Start: 06-25-2021 End: 66-65-4101wnjylzzrsqXS FERNANDO FAZIOFacility:R1Oehay: 06-25-2021 End: 54-08-0130Eprvwliyw for preprocedural laboratory examinationDR FERNANDO RADHIKA Facility:A9Pcwpq: 06-20-2021 End: 70-93-6696Sraclxaep department patient visitAniarielle ArtisAnthony Ohara [facility] Start: 06-06-2021 End: 33-67-1349hbvpfuixvtPC Matt WestFacility:E2Jzzaz: 01-29-2021 End: 57-91-2873pligldegoaGM FERNANDO FAZIOFacility:Y5Ryjwm: 01-25-2021 End: 19-49-5516cyptmopcmzTJBRR PARKERFacility:M4Mnqdp: 10-14-2020 End: 55-89-9572Ejqyyvhpu encounterWiley Singh MD Work Phone: Obstetrics/GynecologyComment on above: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 Procedures DateProcedureProcedure DetailPerforming ClinicianStart: 23-40-6241ISG BRAIN W/ + W/O CONTRASTHilary H Mary CHAVEZ Work Phone: Start: 06-63-6143IHPYPCQL FUNCTION TESTSAlllucia Blunt AUD Work Phone: start: 35-52-8497FK TOMOSYNTHESIS SCREENING BICorey Radhika DO Work Phone: Start: 27-64-4835ONF,APTIMA HPV,AGE GDLNCorey Radhika DO Work Phone: Start: 99-57-7048Vujb cerv/vag auto thin layer prep mnl screenCorey Radhika DO Work Phone: Start: 46-17-6242Juquu brandon species direct probe tq Anabela Boyd DO Work Phone: ablation - action (qualifier value)Shen Ohara Comment on above:uterine Plan of Treatment DateCare ActivityDetailAuthorStart: 01-08-2025 End: 99-61-0814Jbtrtoj encounter procedureNOMS BCP OBStart: 06-21-2024 End: 40-30-1403Raovuxh encounter jdwbsyzvo75/23/2025 1:10 PM EDT Office Visit [facility] [address] [place] [id number] Clayton Sim MD [address] [place], [place] [id number] [facility] CI ENTStart: 06-20-2024 End: 99-67-5340Zmlyzju encounter nnbikorig52/22/2025 3:00 PM EDT Office Visit [facility] [address] [place] [id number] Emily Blunt S, AUD [address] [place] [address] John ROMERO AUDIOLOGYComment on above:ArrivedStart: 01-05-2024 End: 11-62-3035Vvpxgqo encounter wlbvjgulz77/06/2024 4:00 PM EST Office Visit [facility] [address] [place] [address] Fernando Garrido, DO [address] [place] [address] LatrellHAYWARD HOSPITAL OBComment on above:ArrivedStart: 01-05-2024 End: 02-24-1978YO Breast - bilateral ScreeningBilateral screening mammogram Imaging Routine Breast cancer screening by mammogram Expected: 01/05/2024 (Approximate), Expires: 03/06/2025NOUniversity [facility] Work Phone: Comment on above:Expected: 01/05/2024 (Approximate), Expires: 03/06/2025Start: 32-95-7004Holvuypgd vaccinationFlu vaccine (Season Ended)[facility]ENTERStart: 06-09-2022 End: 15-13-6218Nfwhtck encounter procedureModesto [facility] Road[facility] Superintendent [place]Start: 06-03-2022 End: 72-94-6973Zchjkoc encounter xjvgwfpde07/05/2023 Appointment Physical Therapy Rhonda Fields, PTSTVZ Rajesh Romero Physical TherapyStart: 05-18-2022 End: 41-41-0947Qdpgfnovh hamfsanjm79/20/2023 Scheduled Telephone Encounter Obstetrics and Gynecology Anabela Boyd, [address] [place], [place] [id number] [facility] [place] Start: 20-21-0292Mdajvofrf vaccinationFlu vaccine (#1)[facility] Start: 46-85-6556Lzewzccsf vaccinationINFLUENZA (#1)[facility] Hospitaltart: 63-43-6409Grwxb panelLipidsCarilion New River Valley Medical Centerart: 93-05-1504Olcijnxxosx MAMMOGRAMClinton Memorial Hospitaltart: 15-69-6741ZKQ TESTINGPAP TESTINGSt. Elizabeth Hospital Start: 21-44-8875LYM TESTINGHPV TESTINGClinton Memorial Hospitaltart: 2010 Screening for malignant neoplasm of cervixCarilion New River Valley Medical Centerart: 34-29-5742Hbxxqpsvs for malignant neoplasm of cervixPap smearCarilion New River Valley Medical Centerart: 72-13-9116BQfW/Tdap/Td vaccine (1 - Tdap)DTaP/Tdap/Td vaccine (1 - Tdap)[facility] Centerart: 95-54-0622Bycmv microalbumin profile DTAP,TDAP,TD (1 - Tdap)[facility] Hospitaltart: 62-71-0240FNBTVSFSN C SCREENING HEPATITIS C SCREENINGClinton Memorial Hospitaltart: 95-98-1130Ochhilmtt C screening Hepatitis C screenMOUNTAIN VIEW REGIONAL MEDICAL CENTERStart: 60-95-1614MVE SCREENINGHIV SCREENINGClinton Memorial Hospitaltart: 62-88-0351HIV screeningHIV screenCarilion New River Valley Medical Centerart: 19-22-6299Amyjq depression screening assessmentDEPRESSION SCREENINGClinton Memorial Hospitaltart: 05-62-0846INWDW-19 VACCINE (1)COVID-19 VACCINE (1)[facility] Hospitaltart: 51-32-1207Qxgcxoxiqr ScreenDepression ScreenCarilion New River Valley Medical Centerart: 02-00-3091Xmeyrcupa vaccine (1 of 2 - 2-dose childhood series)Varicella vaccine (1 of 2 - 2-dose childhood series)[facility] Centerart: 49-46-1476ZXWEA-19 Vaccine (#1)COVID-19 Vaccine (#1)[facility] End: 82-67-4607Vywxjii, Ureaplasma/Mycoplasma hominisMOUNTAIN VIEW REGIONAL MEDICAL CENTER Work Phone: comment on above:1 Occurrences starting 05/01/2022 until 05/01/2022THIN PREP TIS PAP AND HR HPV DNATHIN PREP TIS PAP AND HR HPV DNA Pathology and Cytology Routine Well woman exam with routine gynecological exam Ordered: 01/05/2024NONJ HealthcareComment on above:Ordered: 01/05/2024 Immunizations Immunization DateImmunizationNotesCare ProviderFacilityNEGATED: Highlighted row has not occurred!09-99-4309mbhhsirfa virus vaccine, unspecified formulationEctorcelia WHITLEY [phone]-TwjlhMercer County Community Hospital Payers DatePayer CategoryPayerPolicy [id number] Health Insurance [id number] Care HMO (unspecified) [id number] Health [id number] 2.16.840.1.931711.3.5[id number] 2.16.840.1.230749.3.57[id number] 2.16.840.1.255820.3.57[id number] 2.16.840.1.963618.3.57[id number] 2.16.840.1.213094.3.57[id number] 2.16.840.1.241576.3.579.[id number] 2.16.840.1.249832.3.579.[id number] 2.16.840.1.316723.3.57[id number] 2.16.840.1.618777.3.579.[id number] 2.16.840.1.793720.3.57[id number] 2.16.840.1.002805.3.57[id number] 2.16.840.1.081002.3.57[id number] 2.16.840.1.500685.3.57[id number] 2..840.1.230308.3.579.[id number] 2.16.840.1.361910.3.579.2.[id number] 2..840.1.728507.3.57[id number] 2..840.1.400890.3.579.2.76999-44-7767Ivcessl Health [id number] Social History DateTypeDetailFacilityTobacco smoking status NHISUnknown if ever smokedClinton Memorial Hospitaltart: [id number] Assigned At BirthNot on fileClinton Memorial Hospitaltart: 06-20-2021 End: 07-05-2028Nswboxl smoking statusNever smoked tobacco (finding)[facility]: [facility]-31-2023 End: 39-44-5160Oqe Assigned At BirthFemalSelect Medical Specialty Hospital - Akrontart: [id number] smoking statusNeverMercer County Community Hospital Start: 03-16-2022 End: 33-79-3353Kjtidmy use and exposureSmokeless tobacco non-userMOUNTAIN VIEW [facility] Work Phone: start: 05-01-2022 End: [id number] intakeEx-drinker (finding)[employer] Work Phone: start: [phone] CommentsocialBON [employer] Work Phone: start: 12-31-2023 End: [id number] beverage intakeCurrent drinker of alcohol (finding)[facility] HealthcareStart: 12-31-2023 End: [id number] of Social functionNOMS HealthcareStart: [id number] CommentoccNONJ HealthcareSexual OrientationBlanchard Valley Health System [facility] Start: [id number] (finding)[facility] Functional Status Emxe[id number] StatusN/AFisherTul[facility] [place] [facility] 10-14-2020 to 06-21-2024 Note Date & [id number] History of Present illness Narrative* Clayton Sim MD - 06/21/2024 1:10 PM EDT Subjective Patient ID: Fe Linton is a 43 y.o. 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 Has also been having difficulty with HL when there is backgroundnoise. 06/20 audio shows severe left and moderate RT HFSNHL. No known family H/O HL, but everyne on dad's side of family talk extremely loud . Only sig noise exposure is loud music. Review of Systems All other systems reviewed and are negative. 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 06/21/2024 Resolved Ambulatory Problems Diagnosis Date Noted No Resolved Ambulatory Problems Past Medical History: Diagnosis Date Exposure to herpes Menorrhagia 2018 Nerve pain Ovarian cyst 2000 Vaginal lesion Past Surgical History: Procedure Laterality Date ABDOMINAL SURGERY 2000, 2021 ENDOMETRIAL ABLATION 2018 LAPAROSCOPY DIAGNOSTIC / BIOPSY / ASPIRATION / LYSIS 2002 OTHER SURGICAL HISTORY 2018 uterine ablation PAP SMEAR 12/02/2020 negative No Known Allergies Current Outpatient Medications on File Prior to Visit Medication Sig Dispense Refill fluticasone (Flonase) 50 MCG/ACT nasal spray Administer 1 spray into each nostril Daily Shake gently. Before first use, prime pump. After use, clean tip and replace cap. No current facility-administered medications on file prior to visit. Objective Last Recorded Vitals Vitals: 06/21/24 1307 BP: 110/70 Pulse: 74 ENT Physical Exam Constitutional Appearance: patient appears well-developed, well-nourished and well-groomed, Head and Face Appearance: head appears normal and face appears atraumatic; Ear Ear Canals: right ear canal normal; left ear canal normal; Tympanic Membranes: right tympanic membrane normal; left tympanic membrane normal; Nose External Nose: nares patent bilaterally; external nose normal; Internal Nose: septum normal; Oral Cavity/Oropharynx Tongue: normal; Oral mucosa: normal; Hard palate: normal; Soft palate: normal; Tonsils: normal; Neck Neck: neck normal; neck palpation normal; Thyroid: thyroid normal; Respiratory Inspection: breathing unlabored; normal breathing rate; Auscultation: breath sounds are clear; Cardiovascular Inspection: extremities are warm and well perfused; no peripheral edema present; Auscultation: regular rate and rhythm; Assessment/Plan Diagnoses and all orders for this visit: Asymmetric SNHL (sensorineural hearing loss) Left-sided tinnitus Assyn SNHL and left tinnitus concerning for an AN. MRI IAC. Will call with results. Discussed compensation for HL, and need for better hearing protection. documented in this encounterGeneral Leonard Wood Army Community HospitalHwexysrejo41-26-7624 History of Present illness Narrative* ELLA Mccormick - 06/20/2024 3:00 PM EDT History: Patient was referred for an audiological evaluation, reporting bilateral, constant, tinnitus. Symptoms began at least 6 years ago. She also reported bilateral ear fullness and difficulties hearing attimes. Pt denies symptoms of otalgia. She perceives brief episodes of vertigo, which occur spontaneously. History is positive for recreational noise exposure (music). Otoscopic Exam: Revealed ear canals were clear from excessive cerumen, bilaterally. Pure Tone Audiometry Audio indicated normal hearing sensitivity 250-4000 Hz, sloping to a mild to moderate high frequency hearing loss 7975-9738 Hz in the right ear. The left ear exhibited normal hearing 250-3000 Hz, sloping to a moderate to severe sensorineural hearing loss 1833-7342 Hz. Hallpike: Yielded negative results in both positions tested. Speech Audiometry Right SRT = 20 dB and word discrimination score at 50 dBHL = 100% Left SRT = 10 dB and word discrimination score at 50 dBHL = 100% Tympanometry Normal tympanograms, bilaterally, indicating normal middle ear function Impressions: Dr. Sim 06/21/2024 documented in this encounterGeneral Leonard Wood Army Community HospitalXqeggxiwiy27-96-9899 Hospital Discharge instructions Patient Education 04/14/2024 11:30:22 Fungal Nail Infection Fungal Nail Infection A fungal nail infection is a common infection of the toenails or fingernails. This condition affects toenails more often than fingernails. It often affects the great, or big, toes. More than one nailmay be infected. The condition can be passed [...] you more likely to develop this condition: Being of older age. Having certain medical conditions, such as: ?Athlete's foot. ?Diabetes. ?Poor circulation. ?A weak body defense system (immune system). Walking barefoot in areas where the fungus thrives, such as showers or locker rooms. Wearing shoes and socks that cause your feet to sweat. Having a nail injury or a recent nail surgery. What are the signs or symptoms? Symptoms of this condition include: A pale spot on the nail. Thickening of the nail. A nail that becomes yellow, brown, or white. A brittle or ragged nail edge. A nail that has lifted away from the nail bed. How is this diagnosed? This condition is diagnosed with a physical exam. Your health care provider may take a scraping or clipping from your nail to test for the fungus. How is this treated? Treatment is not needed for mild infections. If you have significant nail changes, treatment may include: Antifungal medicines taken by mouth (orally). You may need to take the medicine for several weeks or several months, and you may not see the results for a long time. These medicines can cause side effects. Ask your health care provider what problems to watch for. Antifungal nail american or nail cream. These may be used along with oral antifungal medicines. Laser treatment of the nail. Surgery to remove the nail. This may be needed for the most severe infections. It can take a long time, usually up to a year, for the infection to go away. The infection may alsocome back. Follow these instructions at home: Medicines Take or apply vwtn-ajp-haryiuc and prescription medicines only as told by your health care provider. Ask your health care provider about using fdal-krq-vsikjsi mentholated ointment on your nails. Nail care Trim your nails often. Wash and dry your hands and feet every day. Keep your feet dry. To do this: ?Wear absorbent socks, and change your socks frequently. ?Wear shoes that allow air to circulate, such as sandals or canvas tennis shoes. Throw out old shoes. If you go to a nail salon, make sure you choose one that uses clean instruments. Use antifungal foot powder on your feet and in your shoes. General instructions Do not share personal items, such as towels or nail clippers. Do not walk barefoot in shower rooms or locker rooms. Wear rubber gloves if you are working with your hands in wet areas. Keep all follow-up visits. This is important. Contact a health care provider if: You have redness, pain, or pus near the toenail or fingernail. Your infection is not getting better, or it is getting worse after several months. You have more circulation problems near the toenail or fingernail. You have brown or black discoloration of the nail that spreads to the surrounding skin. Summary A fungal nail infection is a common infection of the toenails or fingernails. Treatment is not needed for mild infections. If you have significant nail changes, treatment may include taking medicine orally and applying medicine to your nails. It can take a long time, usually up to a year, for the infection to go away. The infection may alsocome back. Take or apply jpfq-asw-xvpjslm and prescription medicines only as told by your health care provider. This information is not intended to replace advice given to you by your health care provider. Make sure you discuss any questions you have with your health care provider. Document Revised: 05/19/2021 Document Reviewed: 05/19/2021 [employer] Patient Education 2023 CDNlion. 04/14/2024 09:06:32 Tinnitus Tinnitus Tinnitus refers to hearing a sound when there is no actual source for that sound. This is often described as ringing in the ears. However, people with this condition may hear a variety of noises, in one ear or in both ears. The sounds of tinnitus can be soft, loud, or somewhere in between. Tinnitus can last for a few seconds or can be constant for days. It may go away without treatment and come back at various times. When tinnitus is constant or happens often, it can lead to other problems, such as trouble sleeping and trouble concentrating. Almost everyone experiences tinnitus at some point. Tinnitus is not the same as hearing loss. Tinnitus that is long-lasting (chronic) or comes back often (recurs) may require medical attention. What are the causes? The cause of tinnitus is often not known. In some cases, it can result from: Exposure to loud noises from machinery, music, or other sources. An object (foreign body) stuck in the ear. Earwax buildup. Drinking alcohol or caffeine. Taking certain medicines. Age-related hearing loss. It may also be caused by medical conditions such as: Ear or sinus infections. Heart diseases or high blood pressure. Allergies. M ni re's disease. Thyroid problems. Tumors. A weak, bulging blood vessel (aneurysm) near the ear. What increases the risk? The following factors may make you more likely to develop this condition: Exposure to loud noises. Age. Tinnitus is more likely in older individuals. Using alcohol or tobacco. What are the signs or symptoms? The main symptom of tinnitus is hearing a sound when there is no source for that sound. It may sound like: Buzzing. Sizzling. Ringing. Blowing air. Hissing. Whistling. Other sounds may include: Roaring. Running water. A musical note. Tapping. Humming. Symptoms may affect only one ear (unilateral) or both ears (bilateral). How is this diagnosed? Tinnitus is diagnosed based on your symptoms, your medical history, and a physical exam. Your health care provider may do a thorough hearing test (audiologic exam) if your tinnitus: Is unilateral. Causes hearing difficulties. Lasts 6 months or longer. You may work with a health care provider who specializes in hearing disorders (agency service coordinator). You may be asked questions about your symptoms and how they affect your daily life. You may have other tests done, such as: CT scan. MRI. An imaging test of how blood flows through your blood vessels (angiogram). How is this treated? Treating an underlying medical condition can sometimes make tinnitus go away. If your tinnitus continues, other treatments may include: Therapy and counseling to help you manage the stress of living with tinnitus. Sound generators to mask the tinnitus. These include: ?Tabletop sound machines that play relaxing sounds to help you fall asleep. ?Wearable devices that fit in your ear and play sounds or music. ?Acoustic neural stimulation. This involves using headphones to listen to music that contains an auditory signal. Over time, listening to this signal may change some pathways in your brain and make you less sensitive to tinnitus. This treatment is used for very severe cases when no other treatment is working. Using hearing aids or cochlear implants if your tinnitus is related to hearing loss. Hearing aids are worn in the outer ear. Cochlear implants are surgically placed in the inner ear. Follow these instructions at home: Managing symptoms When possible, avoid being in loud places and being exposed to loud sounds. Wear hearing protection, such as earplugs, when you are exposed to loud noises. Use a white noise machine, a humidifier, or other devices to mask the sound of tinnitus. Practice techniques for reducing stress, such as meditation, yoga, or deep breathing. Work with your health care provider if you need help with managing stress. Sleep with your head slightly raised. This may reduce the impact of tinnitus. General instructions Do not use stimulants, such as nicotine, alcohol, or caffeine. Talk with your health care provider about other stimulants to avoid. Stimulants are substances that can make you feel alert and attentive by increasing certain activities in the body (such as heart rate and blood pressure). These substances may make tinnitus worse. Take djea-bfr-hlikfdu and prescription medicines only as told by your health care provider. Try to get plenty of sleep each night. Keep all follow-up visits. This is important. Contact a health care provider if: Your tinnitus continues for 3 weeks or longer without stopping. You develop sudden hearing loss. Your symptoms get worse or do not get better with home care. You feel you are not able to manage the stress of living with tinnitus. Get help right away if: You develop tinnitus after a head injury. You have tinnitus along with any of the following: ?Dizziness. ?Nausea and vomiting. ?Loss of balance. ?Sudden, severe headache. ?Vision changes. ?Facial weakness or weakness of arms or legs. These symptoms may represent a serious problem that is an emergency. Do not wait to see if the symptoms will go away. Get medical help right away. Call your local emergency services (911 in the [place] Do not drive yourself to the hospital. Summary Tinnitus refers to hearing a sound when there is no actual source for that sound. This is often described as ringing in the ears. Symptoms may affect only one ear (unilateral) or both ears (bilateral). Use a white noise machine, a humidifier, or other devices to mask the sound of tinnitus. Do not use stimulants, such as nicotine, alcohol, or caffeine. These substances may make tinnitus worse. This information is not intended to replace advice given to you by your health care provider. Make sure you discuss any questions you have with your health care provider. Document Revised: 01/20/2021 Document Reviewed: 01/20/2021 Testif Patient Education 2023 CDNlion. Follow Up Care 04/13/2024 16:06:00 With:Rebecca DELACRUZ ElbaLUCY Address: [address] [place] [phone] When:1 year Comments:Call today to schedule your follow up [facility] 02-14-2025 NotePatient Education Infectious Disease Fungal Nail Infection A fungal nail infection is a common infection of the toenails or fingernails. This condition affects toenails more often than fingernails. It often affects the great, or big, toes. More than one nailmay be infected. The condition can be passed [...] you more likely to develop this condition: ??? Being of older age. ??? Having certain medical conditions, such as: ? Athlete's foot. ? Diabetes. ? Poor circulation. ? A weak body defense system (immune system). ??? Walking barefoot in areas where the fungus thrives, such as showers or locker rooms. ??? Wearing shoes and socks that cause your feet to sweat. ??? Having a nail injury or a recent nail surgery. What are the signs or symptoms? Symptoms of this condition include: ??? A pale spot on the nail. ??? Thickening of the nail. ??? A nail that becomes yellow, brown, or white. ??? A brittle or ragged nail edge. ??? A nail that has lifted away from the nail bed. How is this diagnosed? This condition is diagnosed with a physical exam. Your health care provider may take a scraping or clipping from your nail to test for the fungus. How is this treated? Treatment is not needed for mild infections. If you have significant nail changes, treatment may include: ??? Antifungal medicines taken by mouth (orally). You may need to take the medicine for several weeks or several months, and you may not see the results for a long time. These medicines can cause side effects. Ask your health care provider what problems to watch for. ??? Antifungal nail american or nail cream. These may be used along with oral antifungal medicines. ??? Laser treatment of the nail. ??? Surgery to remove the nail. This may be needed for the most severe infections. It can take a long time, usually up to a year, for the infection to go away. The infection may alsocome back. Follow these instructions at home: Medicines ??? Take or apply bizq-gop-yzgropr and prescription medicines only as told by your health care provider. ??? Ask your health care provider about using crfs-lli-hnhxqdj mentholated ointment on your nails. Nail care ??? Trim your nails often. ??? Wash and dry your hands and feet every day. ??? Keep your feet dry. To do this: ? Wear absorbent socks, and change your socks frequently. ? Wear shoes that allow air to circulate, such as sandals or canvas tennis shoes. Throw out old shoes. ??? If you go to a nail salon, make sure you choose one that uses clean instruments. ??? Use antifungal foot powder on your feet and in your shoes. General instructions ??? Do not share personal items, such as towels or nail clippers. ??? Do not walk barefoot in shower rooms or locker rooms. ??? Wear rubber gloves if you are working with your hands in wet areas. ??? Keep all follow-up visits. This is important. Contact a health care provider if: ??? You have redness, pain, or pus near the toenail or fingernail. ??? Your infection is not getting better, or it is getting worse after several months. ??? You have more circulation problems near the toenail or fingernail. ??? You have brown or black discoloration of the nail that spreads to the surrounding skin. Summary ??? A fungal nail infection is a common infection of the toenails or fingernails. ??? Treatment is not needed for mild infections. If you have significant nail changes, treatment may include taking medicine orally and applying medicine to your nails. ??? It can take a long time, usually up to a year, for the infection to go away. The infection may also come back. ??? Take or apply mwce-gws-kblnqfv and prescription medicines only as told by your health care provider. This information is not intended to replace advice given to you by your health care provider. Make sure you discuss any questions you have with your health care provider. Document Revised: 05/19/2021 Document Reviewed: 05/19/2021 ElseOwlient Patient Education ? 2023 [employer] Neurology Tinnitus Tinnitus refers to hearing a sound when there is no actual source for that sound. This is often described as ringing in the ears. However, people with this condition may hear a variety of noises, in one ear or in both ears. The sounds of tinnitus can be soft, loud, or somewhere in between. Tinnitus can last for a few seconds or can be constant for days. It may go away without treatment and come back at various times. When tinnitus is constant or happens (more content not included)...[facility]11-06-2024 History of Present illness Narrative* Hanna Pena, RICHARD - 01/05/2024 4:00 PM EST Reason for Appointment: Patient ID: Fe Linton is a 43 y.o. female who presents for Well Women Visit Patient presents today for Annual Exam. MEDICATIONS No current outpatient medications ALLERGIES No Known Allergies PROBLEMS Active Ambulatory Problems Diagnosis Date Noted No Active Ambulatory Problems Resolved Ambulatory Problems Diagnosis Date Noted No Resolved Ambulatory Problems Past Medical History: Diagnosis Date Exposure to herpes Nerve pain Pelvic pain Vaginal lesion HISTORY PAST MEDICAL HISTORY SOCIAL HISTORY Past Medical History: Diagnosis Date Exposure to herpes Nerve pain Pelvic pain Vaginal lesion Social History Tobacco Use Smoking status: Never Smokeless tobacco: Not on file Substance Use Topics Alcohol use: Yes Drug use: Not on file FAMILY HISTORY Family History Problem Relation Name Age of Onset Alcohol abuse Father Cancer Father Lung disease Father SURGICAL HISTORY Past Surgical History: Procedure Laterality Date LAPAROSCOPY DIAGNOSTIC / BIOPSY / ASPIRATION / LYSIS 2001 OTHER SURGICAL HISTORY 2018 uterine ablation PAP SMEAR 12/02/2020 negative REVIEW OF SYSTEMS Review of Systems: Review of Systems Constitutional: Negative. HENT: Negative. Eyes: Negative. Respiratory: Negative. Cardiovascular: Negative. Gastrointestinal: Negative. Genitourinary: Negative. Musculoskeletal: Negative. Skin: Negative. Neurological: Negative. All other systems reviewed and are negative. Hematological: Negative. Endocrine: Negative. Allergic/Immunologic: Negative. OBJECTIVE Objective: Physical Exam Constitutional: Appearance: Normal appearance. She is well-developed. Genitourinary: Vulva normal. Breasts: Breasts are soft. Right: Normal. Left: Normal. Cardiovascular: Rate and Rhythm: Normal rate and regular rhythm. Pulmonary: Effort: Pulmonary effort is normal. Breath sounds: Normal breath sounds. Abdominal: General: Bowel sounds are normal. There is no distension. Palpations: Abdomen is soft. Tenderness: There is no abdominal tenderness. There is no guarding or rebound. Musculoskeletal: General: No swelling. Normal range of motion. Right lower leg: No edema. Left lower leg: No edema. Neurological: Mental Status: She is alert and oriented to person, place, and time. Skin: General: Skin is warm and dry. Psychiatric: Mood and Affect: Mood normal. Behavior: Behavior normal. Vitals and nursing note reviewed. Exam conducted with a hotel housekeeper present. Vitals: Estimated body mass index is 22.21 kg/m as calculated from the following: Height as of 12/21/22: 5' 7 . Weight as of this encounter: 141 lb 12.8 oz. BP: 110/60 Patient's last menstrual period was 12/10/2023. ASSESSMENT & PLAN ICD-10-CM 1. Well woman exam with routine gynecological exam Z01.419 THIN PREP TIS PAP AND HR HPV DNA 2. Breast cancer screening by mammogram Z12.31 Bilateral screening mammogram Bilateral screening mammogram Annual Exam: Patient presents today for an annual exam. Patient states she is doing well and has complaints of irregular bleeding. Pt advised to keep track of bleeding and if bleeding becomes bothersome pt will notify office. Pap was obtained without difficulty. Orders Placed This Encounter Procedures Bilateral screening mammogram Follow Up: Patient is to return in one year for annual unless needed otherwise. Documented by Hanna Pena LPN on behalf of: Fernando Garrido DO documented in this encounterGeneral Leonard Wood Army Community [id number] Hospital Discharge instructions Follow Up Care 11/10/2022 17:25:49 With:Reanna WHITLEY CNP Address: [address] [place], [place] [id number]- When: only if needed [facility] 08-29-2023 Hospital Discharge instructions Follow Up Care 10/27/2022 15:30:44 With:Reanna WHITLEY CNP Address: [address] [place] [address], [place] [address]- When:Within 3 Month(s) [facility] 05-04-2022 Hospital Discharge instructions Follow Up Care 07/02/2021 15:04:43 With:Reanna WHITLEY CNP Address: [address] [place] [address]- When: only if needed With:Reanna WHITLEY CNP Address: [address] [place] [address]- When: only if needed [facility] 04-29-2022 NoteThe [place], [place] NAME: FE LINTON DATE OF : MEDICAL REC#: [id number] TOOL KEEPER: [address] [facility], TRANSADMIT DATE: 06/27/2021 09:23:00 [employer] CLERK DATE: 06/28/2021 00:00 DICTATING PHYSICIAN: FERNANDO GARRIDO DICTATION DATE: 06/27/2021 12:00 OPERATIVE NOTE OPERATION DATE: 06/27/2021 PROCEDURE: Diagnostic laparoscopy. PREOPERATIVE DIAGNOSIS: Pelvic pain. POSTOPERATIVE DIAGNOSIS: Pelvic pain. ANESTHESIA: General. SURGEON: Fernando Garrido D.O. INFORMATION SYSTEMS AUDIT MANAGER: ASHLEY Goins. URINE OUTPUT: Yellow and clear. [...] Garrido DO on 07/06/2021 12:29 PM EDT IFC Signed and Approved by: DR FERNANDO GARRIDO . 07/06/2021 12:29:00[facility]04-23-2022 Hospital Discharge instructions Patient Education 06/21/2021 01:16:24 Abdominal Pain, [...] Follow these instructions at home: Medicines Take jwap-gll-qkzcjgs and prescription medicines only as told by [...] Watch your condition for any changes. Take yzqe-ttt-keyaezd and prescription medicines only as told by [...] 11/25/2005 Document Revised: 06/26/2019 Document Reviewed: 06/26/2019 [employer] Patient Education 2020 [employer] Follow Up Care 06/20/2021 22:57:25 With:Yolanda CHEUNG Address: [facility] [place] [address], [place] [address] Business (1) When:06/24/2021 [facility]04-22-2022 Evaluation + Plan noteExtracted from: Title:ED NoteAuthor:Shen Ohara DODate:06/20/21 Acute UTI (N39.0: Urinary tr act infection, site not specified) AP (abdominal pain) (R10.9: Unspecified abdominal pain) Orders: cephalexin, 500 mg = 1 cap(s), Cap, Oral, Once, Stop date 06/21/21 1:04:00 EDT, STAT, Start date 06/21/21 1:04:00 EDT, 06/21/21 1:04:00 EDT cephalexin, 500 mg = 1 cap(s), Oral, q12hr, X 5 day(s), # 10 cap(s), Refills(s) 0, Pharmacy: [facility], 170, cm, 06/20/21 23:04:00 EDT, Height/Length Dosing, 64.3, kg, 06/20/21 23:04:00 EDT, Weight Dosing famotidine, 10 mg = 1 tab(s), Oral, BID, X 14 day(s), # 28 tab(s), Refills(s) 0, Pharmacy: [facility], 170, cm, 06/20/21 23:04:00 EDT, [...] Diagnostic Tests Pending * Urine Culture 06/20/21 [facility]08-16-2021 Miscellaneous Notes* Telephone Encounter - Lisa Horton RN - 10/14/2020 2:40 PM EDT Call placed to Brooke and providers message reviewed with Brooke who verbalized understanding Lisa Horton RN * Telephone Encounter - Daniela Strong MD - 10/14/2020 2:17 PM EDT If has diagnosis of vulvodynia should schedule with urogyn * Telephone Encounter - Tyesha Ponce - 10/14/2020 2:08 PM EDT Pt is not established at [facility] or within [facility]. Call received from Brooke hogshead cooper at Dr Garrido's office. Brooke is asking if a SAND FILLER provider at [facility] office is able to evaluate and treat vulvodynia. 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 Dr Garrido's office call back # is [phone]. Tyesha Ponce RN documented [facility] Future Appointments Appointment Date:02/09/2023 04:20:00 PM Scheduled Provider:Reanna WHITLEY CNP Location:[facility] Appointment Type: Open Future Scheduled Tests Laboratory* Fecal WBC Lactoferrin 11/10/22 * Giardia lamblia, Direct Detection EIA 11/10/22 * O & P Exam, Routine 11/10/22 * TSH With T4fr Reflex 11/10/22 * Rotavirus Ab 11/10/22 * Clostridium Difficile PCR 11/10/22 * Stool Occult Blood 11/10/22 * Enteric Panel by PCR 11/10/22 * Comprehensive Metabolic Panel 11/10/22 [facility] [place] Evaluation + Plan note Future Appointments Appointment Date:02/09/2023 04:20:00 PM Scheduled Provider:Reanna WHITLEY CNP Location:[facility] Appointment Type:FM Open Future Scheduled Tests Laboratory* Fecal WBC Lactoferrin 11/10/22 * Giardia lamblia, Direct Detection EIA 11/10/22 * O & P Exam, Routine 11/10/22 * Rotavirus Ab 11/10/22 * Clostridium Difficile PCR 11/10/22 * Stool Occult Blood 11/10/22 * Enteric Panel by PCR 11/10/22 [facility] Evaluation + Plan [facility] Evaluation note* Diagnosis Vaginal discharge Leukorrhea, not specified as infective [place]'s gland cyst Other specified disorders of urinary tract documented in this encounter [facility] Work Phone: evaluation note* Diagnosis Well woman exam with routine gynecological exam Routine gynecological examination Breast cancer screening by mammogram [facility] Diagnosis Sensorineural hearing loss, bilateral- Primary Tinnitus, bilateral Unspecified tinnitus [facility] Diagnosis Asymmetric SNHL (sensorineural hearing loss)- Primary Sensorineural hearing loss, asymmetrical Left-sided tinnitus Unspecified tinnitus [facility] Narrative No data available for this section [facility] No data available for this section [facility] Primary Care Progress note No data available for this section [facility] Reason for referral (narrative) Referred by: Reanna WHITLEY CNP [facility] Refwmp for referral (narrative) Referred by: Elba Gonzalez [facility] Summary Purpose Family History No Family History Records FoundNo Family History Records FoundNo Family History Records Found No data available for this section No data available for this section No data available for this section No Family History Records FoundNo Family History [...] this informatio n is protected by the [facility] Confidentiality of Alcohol and Drug Abuse Patient Records regulations: The Federal rules restrict any use of the information to criminally investigate or prosecute any alcohol or drug abuse patient.[facility] HospitalIn the event this information is protected by the Federal Confidentiality of Alcohol and Drug Abuse Patient Records regulations: The Federal rules restrict any use of the information to criminally investigate or prosecute any alcohol or drug abuse patient.[facility] Reason for Visit (unrecogniz ed section and content) ReasonCommentsOpened In ErrorReasonCommentsvulvodyniaSpecialtyDiagnoses / ProceduresReferred By ContactReferred To ContactPhysical Therapist / Physical Therapy Diagnoses Pelvic and perineal pain Procedures HC PT EVAL LOW COMPLEX HC PT THERAPEUTIC EXERCISE,EA 15 MIN Kely Berger, DO [address] [place] [address] Rhonda Fields PT Referral IDStatusReasonStart DateExpiration DateVisits RequestedVisits [id number] Women Visit ReasonCommentsTinnitusAudio 06/20/24 INFORMATION SOURCE (unrecogn ized section and content) DATE CREATED AUTHOR 10/16/2020 [facility] DATE CREATED AUTHOR AUTHOR'S ORGANIZ ATION 12/25/2021 [facility] DATE CREATED AUTHOR AUTHOR'S ORGANIZ ATION 06/05/2022 [facility] DATE CREATED AUTHOR AUTHOR'S ORGANIZ ATION 04/16/2024 [facility] DATE CREATED AUTHOR AUTHOR'S ORGANIZ ATION 06/22/2024 [facility] DATE CREATED AUTHOR AUTHOR'S ORGANIZ ATION 07/03/2024 [facility] Care Teams (unrecognized sec tion and content) Team MemberRelationshipSpecialtyStart DateEnd Date Fernando Garrido MD [address] [place] [address] PCP - GeneralObstetrics & Gynecology03/16/22Team MemberRelationshipSpecialtyStart DateEnd Date Fernando Garrido MD [address] [place] [address] PCP - GeneralObstetrics & Gynecology03/16/22Team MemberRelationshipSpecialtyStart DateEnd Date Fernando Garrido MD [facility] [place] [address] PCP - GeneralObstetrics & Gynecology03/16/22Team MemberRelationshipSpecialtyStart DateEnd Date Elba Alarcon NP [address] [place] [address] PCP - GeneralFamily Medicine06/20/24Team MemberRelationshipSpecialtyStart DateEnd Date Elba Alarcon NP [address] [place] [address] PCP - GeneralFamily Medicine06/20/24Team MemberRelationshipSpecialtyStart DateEnd Date Elba Alarcon NP [address] [place] [address] PCP - [facility]06/20/24Team MemberRelationshipSpecialtyStart DateEnd Date Zaki AlarconNATHEN cordova [address] [place] [address] PCP - [facility]06/20/24 FOR RECORDS PERTAINING TO PATIENTS WHO ARE [...] BE BASED ON THE PRIMARY CLINICAL RECORDS. [facility] [employer], [facility]. provides no warranty or guarantee of the accuracy or completeness of information in this document.
== END 2025-01-08 21:10 | disposition home or self-care (01) ==
LOC: LAB 21:09
PROVIDERS: Visit Provider Nurse Practitioner Family
DX: Z01.419 Encounter for gynecological examination (general) (routine) without abnormal findings (principal)
CPT/HCPCS: 87624; 88175

== ENCOUNTER 2025-02-02 07:40 | Outpatient (OUT) | payer OTHER, SELFPAY ==
--- NOTE | 2025-02-02 07:43 | MM_ITS ---
Patient Name: ELOISA IGLESIAS MR#: [id number] : 1980 Exam Date: 02/02/2025 Ordering Doctor: DR CODY CASAREZ . RADIOLOGY REPORT PROCEDURE: MM TOMOSYNTHESIS SCREENING BI COMPARISON: MM TOMOSYNTHESIS SCREENING BI, 01/11/2024. MM TOMOSYNTHESIS SCREENING BI, 01/01/2023. MG MAMM SCREEN 3D ROXI CAD, 12/19/2021. MG MAMM SCREEN 3D ROXI CAD, 12/09/2020. INDICATIONS: Screening Calculator Name NCI Breast Cancer Risk Assessment Tool 5 Year Breast Cancer Risk 0.80% Lifetime Breast Cancer Risk 9.80% Personal Breast Cancer No Personal Ovarian Cancer No Treatments None Family Cancers Father with lung cancer at age 53; Grandfather-paternal with lung cancer at age 70. LOCATION: [facility] BREAST COMPOSITION: The breasts are extremely dense, which lowers the sensitivity of mammography. FINDINGS: RIGHT BREAST: No significant suspicious finding. LEFT BREAST: No significant suspicious finding. DIAGNOSTIC CATEGORY 1--NEGATIVE. NO CHANGE FROM COMPARISON ASSESSMENT. RECOMMENDATIONS: ROUTINE MAMMOGRAM AND CLINICAL EVALUATION IN 12 MONTHS. Dictated by: Denver Reynolds MD on 02/02/2025 at 09:31 Approved by: Denver Reynolds MD on 02/02/2025 at 10:27
--- OUTSIDE RECORDS SUMMARY | 2025-02-02 07:43 | XMS_ITS | CCD ---
Author Organization [facility] Care Team Providers Care Counter Roller Name Role Phone Idalmis Garcia Primary Care Provider Yolanda CHEUNG Primary Care Physician [phone] RADHIKA, DR ROSS Attending Unavailable RADHIKA, DR [...] Unavailable Fernando Garrido MD Primary Care Provider [phone] ANABELA BOYD Referring Unavailable FERNANDO GARRIDO Primary Care Unavailable JULIO GOMEZIKA R Referring Unavailable FERNANDO GARRIDO Primary Care Unavailable JULIO GOMEZIKA R Referring Unavailable FERNANDO GARRIDO Primary Care Unavailable KELY GOMEZ R Referring Unavailable FERNANDO GARRIDO Primary Care Unavailable Reanna WHITLEY Primary Care Physician Unavailable Primary Care Provider Unavailabl e Rebecca, Elba Primary Care Physician Rebecca, Elba Attending Unavailable Rebecca, Elba Admitting Unavailable Rebecca, Elba Attending Unavailable Rebecca FUEL TESTING TECHNICIANElba Primary Care Provider Timmis, Clayton H Referring Unavailable Timmis, Clayton H Admitting Unavailable Timmis, Clayton H Attending Unavailable Rebecca, Elba Admitting Unavailable Rebecca, Elba Attending Unavailable EMILY BLUNT Attending Unavailable REBECCA, ELBA Referring Unavailable TIMMIS, CLAYTON H Attending Unavailable REBECCA, ELBA Referring Unavailable RADHIKA FERNANDO Attending Unavailable Allergies Allergy ClassificationReported Allergen(s)Allergy TypeDate of OnsetReaction(s) Facility (2 sources)No Known Medication Allergies; Translations: [No Known Medication Allergies]Propensity to adverse reactions (disorder)[facility] Repository Medications Current Medications MedicationDrug Class(es)DatesSig (Normalized)Sig (Original)amoxicillin 875 mg / clavulanate 125 mg oral tablet (1 source)Penicillin-class AntibacterialStart: 07-03-2021 End: 63-10-6561xbef 1 tablet by mouth every twelve hoursAugmentin 875 mg oral tablet = 1 tab(s), Oral, q12hr, X 10 day(s), # 20 tab(s), Refills(s) 0, Pharma cy: [facility], 170, cm, 07/03/21 13:50:00 EDT, Height/Length Dosing, 63.9, kg, 07/03/2212:50:00 EDT, Weight Dosing Start Date: 07/03/21 Stop Date: 07/13/21 Status: Orderedcephalexin 500 mg oral capsule (1 source)Cephalosporin AntibacterialStart: 06-21-2021 End: 44-04-0163mquc 1 capsule by mouth every twelve hoursKeflex 500 mg Cap 500 mg = 1 cap(s), Oral, q12hr, X 5 day(s), # 10 cap(s), Refills(s) 0, Pharmacy: [facility], 170, cm, 06/20/21 23:04:00 EDT, Height/Length Dosing, 64.3, kg, 06/20/21 23:04:00 EDT, Weight Dosing Start Date: 06/21/21 Stop Date: 06/26/21 Status: Orderedclindamycin 10 mg/ml topical foam (4 sources)Lincosamide AntibacterialStart: 34-53-9652Wofjzxcqdqf Phosphate 1 % FOAM Apply 1 drop topically in the morning and at bedtime 100 g 3 05/01/2022 Activedocusate sodium 100 mg oral capsule (2 sources)Start: 70-35-7818hgsa 1 capsule by mouth twice daily as needed for constipationColace 100 mg Cap 100 mg = 1 cap(s), Oral, BID, PRN for constipation, # 60 cap(s), Refills(s) 0, Pharmacy: [facility], 171, cm, 10/30/20 14:37:00 EDT, Height/Length Dosing, 62.9, kg, 10/30/20 14:37:00 EDT, Weight Dosing Start Date: 10/30/20 Status: Orderedfamotidine 10 mg oral tablet (2 sources)Histamine-2 Receptor AntagonistStart: 06-21-2021 End: 20-25-9890jkcw 1 tablet by mouth twice dailyfamotidine 10 mg oral tablet 10 mg = 1 tab(s), Oral, BID, X 14 day(s), # 28 tab(s), Refills(s) 0, Pharmacy: [facility], 170, cm, 06/20/21 23:04:00 EDT, Height/Length Dosing, 64.3, kg, 06/20/21 23:04:00 EDT, Weight Dosing Start Date: 06/21/21 Stop Date: 07/05/21 Status: Orderedfluticasone propionate 0.05 mg/actuat metered dose nasal spray (9 sources)Corticosteroidtake 1 spray(s) nasal route once dailyfluticasone (Flonase) 50 MCG/ACT nasal spray Administer 1 spray into each nostril Daily Shake gently. Before first use, prime pump. After use, clean tip and replace cap. Activefluticasone 0.05 mg/inh Nasal [place] (7 sources)Start: 69-80-7318bgxx 2 spray(s) nasal route once dailyfluticasone 0.05 mg/inh Nasal [place] 2 spray(s), Nasal, Daily, 16 gram, Refill(s) 2, each nostril, [email or web address], [facility], cm, 07/03/21 13:50:00 EDT, Height/Length Dosing, 63.9, kg, 07/03/21 13:50:00 EDT, Weight Dosing Start Date: 07/03/21 Status: Ordered Quantity: 16.0 Unit: g Repeat number: 3Start: 10-63-0150mssa 2 spray(s) nasal route once dailyfluticasone 0.05 mg/inh Nasal [place] 2 spray(s), Nasal, Daily, 16 gram, Refill(s) 2, each nostril, [email or web address], 170, cm, 07/03/21 13:50:00 EDT, Height/Length Dosing, 63.9, kg, 07/03/21 13:50:00 EDT, Weight Dosing Start Date: 07/03/21 Status: Orderedlidocaine 0.05 mg/mg topical ointment (4 sources)Antiarrhythmic, Amide Local AnestheticStart: 74-56-0295mxszakrxg (XYLOCAINE) 5 % ointment Indications: Vulvodynia Apply topically as needed to the vulvar introitus 30 g 3 03/16/2022 ActivepredniSONE 20 mg oral tablet (1 source)Start: 07-03-2021 End: 81-59-9209jpca 2 tablets by mouth once dailypredniSONE 20 mg Tab 40 mg = 2 tab(s), Oral, Daily, X 5 day(s), # 10 tab(s), Refills(s) 0, [facility], [facility], cm, 07/03/21 13:50:00 EDT, Height/Length Dosing, 63.9, kg, 07/03/21 13:50:00 EDT, Weight Dosing Start Date: 07/03/21 Stop Date: 07/08/21 Status: Ordered Completed/Discontinued Medications MedicationDrug Class(es)DatesSig (Normalized)Sig (Original)Itraconazole (2 sources)Azole AntifungalStart: 46-20-0782Ffywbyqxrmat Itraconazole, See Instructions, 90 tab(s), 0, 200mg po daily, [facility], Supply, 170, cm, 11/10/22 16:46:00 EDT, Height/Length Dosing, 65.3, kg, 11/10/22 16:46:00 EDT, WeightDosing Start Date: 11/10/22 Status: Ordered Problems Active Problems Problem ClassificationProblemDateDocumented DateEpisodic/ChronicEndometriosis (1 source)Endometriosis, unspecified; Translations: [ENDOMETRIOSIS UNSPECIFIED] Onset: 67-03-2230PkvoyumXwztqexsuoq (9 sources)Zergcsofncw58-58-7860WmkcoimjHvvpnqzolyqgd and screening for infectious disease (1 source)Encounter for screening for human papillomavirus (HPV); Translations: [ENC SCREENING HUMAN PAPILLOMAVIRUS]Onset: 77-45-3397WayjxzfbJqsfqvmgt disorders (1 source)Excessive and frequent menstruation with regular cycle; Translations: [EXCESS FREQ MENSTRUATION W/REG CYCL]Onset: 74-92-7837RhzondpXnehc diseases of bladder and urethra (1 source)Other specified disorders of urethra; Translations: [Other specified disorders of urethra]Onset: 13-18-3434QmpjmqcdWjnye ear and sense organ disorders (2 sources)Sensorineural hearing loss, bilateral; Translations: [Sensorineural hearing loss, bilateral]65-25-0635EjivbfhWoemw ear and sense organ disorders (2 sources)Asymmetrical sensorineural hearing loss; Translations: [Sensorineural hearing loss, bilateral]69-18-5931GetptatXqwqg ear and sense organ disorders (2 sources)Bilateral tinnitus; Translations: [Tinnitus, bilateral]06-20-2024 EpisodicOther ear and sense organ disorders (2 sources)Tinnitus of left ear; Translations: [Tinnitus, left ear]06-21-2024 EpisodicOther female genital disorders (14 sources)Vulvodynia; Translations: [Vulvodynia, unspecified]Onset: 03-16-2022 34-17-3517IonqvdbYbich female genital disorders (1 source)Vulvodynia, unspecified; Translations: [Vulvodynia, unspecified]Onset: 13-51-2140RnzdqarVxetk female genital disorders (2 sources)Other specified noninflammatory disorders of vagina; Translations: [OTH SPEC NONINFLAMMATORY D/O VAGINA]Onset: 10-64-7577PyyrjytiCgkqy female genital disorders (1 source)Vaginal discharge; Translations: [Other specified noninflammatory disorders of vagina]EpisodicOther gastrointestinal disorders (2 sources)Abnormal feces; Translations: [Other fecal abnormalities]Onset: 43-32-7139UweorrodFebib nervous system disorders (7 sources)Mononeuropathy of lower limb; Translations: [Unspecified mononeuropathy of right lower limb]Onset: 612808-36-8532BqhypooTnjbh screening for suspected conditions (not mental disorders or infectious disease) (12 sources)Encounter for screening mammogram for malignant neoplasm of breast; Translations: [Encounter for screening for malignant neoplasm of cervix]Onset: 91-96-7073KmcegqcdDlrlw upper respiratory infections (2 sources)Acute maxillary sinusitis, unspecified; Translations: [Acute maxillary sinusitis]Onset: 61-05-0924CasekqxvQlrnrzpw codes; unclassified (1 source)Family history of malignant neoplasm of trachea, bronchus and lung; Translations: [FAM HX MALIG NEOPLSM TRACH BRON LNG]Onset: 98-78-4035Kmunyros Unclassified (5 sources)Body mass index 20-24 - kjkdue38-13-8534Wwqmqpqclozx (2 sources)History of JTAB-VxL-656-01-2021Unclassified (1 source)CONTACT W/AND (SUSP) EXPOS COVID-19; Translations: [CONTACT W/AND (SUSP) EXPOS COVID-19]Onset: 08-43-6274Uqnomrmxsgqs (2 sources)Finding of sensation of paiaqda93-11-6206Cmkafplbzsqx (4 sources)Pain in pelvis; Translations: [Pelvic pain]Onset: 03-16-2022 30-90-4346Syvcuhk tract infections (3 sources)Urinary tract infectious disease; Translations: [Urinary tract infection, site not specified]Onset: 26-53-0596Nmgfoclh Past or Other Problems Problem ClassificationProblemDateDocumented DateEpisodic/ChronicAbdominal pain (20 sources)Abdominal pain; Translations: [Unspecified abdominal pain]Onset: 38-74-8688VesqqvqtOtxfhrltth associated with dizziness or vertigo (14 sources)Dizziness and giddiness; Translations: [Dizziness and giddiness] Onset: 05-26-8239GoxhcmisWyzrsyf and fatigue (14 sources)Fatigue; Translations: [Other fatigue]Onset: 22-37-0312Sojhaaxo Mycoses (20 sources)Onychomycosis due to dermatophyte ; Translations: [Tinea unguium] Onset: 58-40-0187ZjappwlhCitev diseases of bladder and urethra (14 sources)Cyst of vulva; Translations: [Other specified disorders of urethra] Onset: 82-31-5058AolbqndeSswxa ear and sense organ disorders (14 sources)Tinnitus; Translations: [Tinnitus, unspecified ear]Onset: 04-14-2024 EpisodicOther female genital disorders (1 source)Vulvar cyst; Translations: [VULVAR CYST]Onset: 88-81-9510TtqikxftIywif gastrointestinal disorders (12 sources)Dark stools; Translations: [Other fecal abnormalities]Onset: 558765-65-8161PcxwclatOrlbchr cyst (2 sources)Unspecified ovarian cyst, left side; Translations: [Unspecified ovarian cyst, right side]Onset: 36-79-8136MtkaqrlsWgoowhfq codes; unclassified (13 sources)Body mass index 20-24 - normal; Translations: [Body mass index (BMI) 22.0-22.9, adult]Onset: 85-12-3457Udhxjkxx Results Test NameValueInterpretationReference RangeFacilityMRI BRAIN W/ + [...] Patrick Knutson DO Transcribed by: MCKENZIE Technologist: [facility], Radi[facility], - 06/28/2024 Exam Date/Time: 06/26/2024 19:18 [...] DO Transcribed by: MCKENZIE Technologist: JACQUELINE ORDOÑEZ [facility] BRAIN W/ + W/O CONTRASTOrdered By: Radiologist Radiology on 66-36-2607WTZS [employer] Work Phone: [facility] Brain w/ + w/o Contraston 91-73-0476FGL Brain w/ + w/o ContrastExam Date/Time: 06/26/2024 [...] Knutson DO Transcribed by: MCKENZIE Technologist: Har[facility] BRAIN W/ + W/O CONTRASTon 87-46-9311Igagcpbqj Study observation (narrative)[facility] BiodirectionUnc Health Johnston Informationon 88-71-0752Jrek Tone Audiometry Audio indicated normal hearing sensitivity 250-4000 Hz, sloping to a mild to moderate high frequency hearing loss 4833-2427 Hz in the right ear. The left ear exhibited normal hearing 250-3000 Hz, sloping to a moderate to severe sensorineural hearing loss 9622-0810 Hz. Hallpike: Yielded negative results in both positions tested. [facility] BiodirectionMO[facility] HealthcareCHEMISTRYOrdered By: SYSTEM SYSTEM on 04-14-2024 Albumin [Mass/Vol]4.6 g/dLNormal3.3 - 5.0 gm/dLRemisol ChemAlbumin/Globulin [Mass ratio]2.6 {ratio}High1.1 - 2.2Remisol ChemALP [Catalytic activity/Vol]25 [iU]/yQljszv95 - 98 Int._Unit/LRemisol ChemALT No additional P-5'-P [Catalytic activity/Vol]10 [iU]/dNormal6 - 46 Int._Unit/LRemisol ChemAnion gap [Moles/Vol]8 mmol/LNormal6 - 16 mEq/LRemisol ChemAST [Catalytic activity/Vol]13 [iU]/dNormal 5 - 43 Int._Unit/LRemisol ChemBilirubin [Mass/Vol]0.6 mg/dLNormal0.0 - 1.1 mg/dL Remisol ChemCalcium [Mass/Vol]9.3 mg/dLNormal8.9 - 11.1 mg/dLRemisol Chem Chloride [Moles/Vol]106 mmol/MThyngc822 - 111 mmol/LRemisol ChemCholesterol [Mass/Vol]184 mg/uFJhidmu541 - 200 mg/dLRemisol ChemCholesterol in HDL [Mass/Vol]63 mg/dLInvalid Interpretation CodeRemisol ChemComment on above:Result Comment: '>= 60 LOW RISK' '<= 40 HIGH RISK'Cholesterol in LDL [Mass/Vol]108 mg/dLNormal<=129mg/dLRemisol ChemCholesterol in VLDL [Mass/Vol]10 mg/dLNormal7 - 40 mg/dLRemisol ChemCO2 [Moles/Vol]29 mmol/PKzvshg87 - 31 mmol/LRemisol ChemCreatinine [Mass/Vol]0.7 mg/dLNormal0.5 - 1.3 mg/dLRemisol TqikhWCH891 mL/min/1.73 x2Enhziu >=59mL/min/1.73 o9Foixpaa ChemGlobulin (S) [Mass/Vol]1.8 g/dLNormal1.4 - 4.0 gm/dLRemisol ChemGlucose [Mass/Vol]93 mg/tKRmpjwr04 - 199 mg/dLRemisol Chem Potassium [Moles/Vol]4.1 mmol/LNormal3.5 - 5.3 mmol/LRemisol ChemProtein [Mass/Vol]6.4 g/dLNormal6.0 - 7.8 gm/dLRemisol ChemSodium [Moles/Vol]139 mmol/L Rejfkw585 - 145 mmol/LRemisol ChemTriglyceride [Mass/Vol]48 mg/dLNormal <=149mg/dLRemisol ChemUrea nitrogen [Mass/Vol]11 mg/dLNormal5 - 21 mg/dLRemisol ChemUrea nitrogen/Creatinine [Mass ratio]16 mg/cyMdqmgl84 - 20Remisol ChemCMPon 59-38-5179Ytzeztg [Mass/Vol]4.6 g/dLNormal3.3-5.0[facility] Comment on above:Performed By: #### [id number] #### [facility] [address], [place] [address]Kysmyfo/Globulin (S) [Mass conc ratio]2.6High1.1-2.2FACMC Healthcare SystemComment on above:Performed By: #### [id number] #### [facility] [address], [place] [address]JXN [Catalytic activity/Vol]25 Int._Unit/CQizgbd62-68KvcltrMercy Health St. Rita'S Medical CenterComment on above:Performed By: #### [id number] #### [facility] [address], [place] [address]NOO No additional P-5'-P [Catalytic activity/Vol]10 Int._Unit/L Normal6-46[facility]S Medical CenterComment on above:Performed By: #### [id number] #### [facility] [address], [place] [address]Jwxar gap [Moles/Vol]8 mmol/LNormal6-16[facility]S Medical CenterComment on above:Performed By: #### [id number] #### [facility] [address], [place] [address]PCS [Catalytic activity/Vol]13 Int._Unit/LNormal5-43[facility]S Medical CenterComment on above:Performed By: #### [id number] #### [facility] [address], [place] [address]Oybkroxan [Mass/Vol]0.6 mg/dLNormal0.0-1.1FACMC Healthcare SystemComment on above:Performed By: #### [id number] #### [facility] [address], [place] [address]Zevihye [Mass/Vol]9.3 mg/dLNormal8.9-11.1FACMC Healthcare SystemComment on above:Performed By: #### [id number] #### [facility] [address] [place] [address], [place] [address]Ipwcwuja [Moles/Vol]106 mmol/WCuiyud128-263WxvbrzMercy Health St. Rita'S Medical CenterComment on above:Performed By: #### [id number] #### [facility] [address], [place] [address]JT5 [Moles/Vol]29 mmol/INdwijw26-70DpuclbMercy Health St. [facility]'S Medical Center Comment on above:Performed By: #### [id number] #### [facility] [address] [place] [address], [place] [address]Ccfsrarojf [Mass/Vol]0.7 mg/dLNormal0.5-1.3FACMC Healthcare SystemComment on above:Performed By: #### [id number] #### [facility] [address] [place] [address], [place] [address]Imyrrgqd (S) [Mass/Vol]1.8 g/dLNormal1.4-4.0[facility]'S Medical CenterComment on above:Performed By: #### [id number] #### [facility] [address], [place] [address]Jtyaekx [Mass/Vol]93 mg/cUQtcntp41-379UnyjzkMercy Health St. Rita'S Medical CenterComment on above:Performed By: #### [id number] #### [facility] [address], [place] [address]Jwfgfpzjx [Moles/Vol]4.1 mmol/LNormal3.5-5.3FACMC Healthcare SystemComment on above:Performed By: #### [id number] #### [facility] [address], [place] [address]Lpvzdhf [Mass/Vol]6.4 g/dLNormal6.0-7.8[facility]'S Medical CenterComment on above:Performed By: #### [id number] #### [facility] [address] [place], [place] [address]Gymrhg [Moles/Vol]139 mmol/LCsieas480-335MgbnkkMercy Health St. Rita'S Medical CenterComment on above:Performed By: #### [id number] #### [facility] [address] [place], [place] [address]Tzyz nitrogen [Mass/Vol]11 mg/dLNormal5-21[facility]'S Medical CenterComment on above:Performed By: #### [id number] #### [facility] [address] [place] [address], [place] [address]Nxul nitrogen/Creatinine [Mass ratio]16 No TbgueLmtmoc11-[address] [facility]'S Medical CenterComment on above:Performed By: #### [id number] #### [facility] [address] [place], [place] [address]Xjoqzr Medicine Office/Clinic Noteon 65-99-8965Dnuvbm Medicine Office/Clinic NoteFanewton-wellesley hospital Medicine Office/Clinic Note Chief Complaint Establish [...] October. She is currently using terbinafine 2% [place] to affected toenail. Patient was not satisfied [...] necessary. 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 Also advised patient for laser treatment. Patient verbalized that she has used all the hqil-gib-iuyjnit and home remedies with no relief. Patient verbalized she has seen field servicer check up last Wednesday for screening skin [...] understanding. Referral made to ENT specialist. [place] [facility] 2. Onychomycosis of toenail (B35.1: Tinea unguium) Advices patient to continue her prescribed terbinafine 2% [place] to her toes and continue F/U with her podia (more content not included)...[facility] CenterComment on above:Result Comment: Electronically Signed By: Elba Gonzalez\.br\Date and Time Signed: 04/14/24 11:35 ESTLipid Panel on 76-83-1671Ulvnxwaevfh [Mass/Vol]184 mg/zSWxxxdq288-777OnnmvkMercy Health St. Rita'S Medical CenterComment on above:Performed By: #### [id number] #### Juna R [facility] [address] [place] [address]Gneyjtmzqio in HDL [Mass/Vol]63 mg/dLInvalid Interpretation CodeMercy Health St. Rita'S Medical CenterComment on above:Result Comment: '>= 60 LOW RISK' '<= 40 HIGH RISK'Performed By: #### [id number] #### Pete [facility] [address] [place], [place] [address]Ejheqvdqyfa in LDL [Mass/Vol]108 mg/dLNormal<=129[facility]'S Medical CenterComment on above:Performed By: #### [id number] #### Juan R [facility] [address] [place] [address], [place] [address]Wvrijbpozfq in VLDL [Mass/Vol]10 mg/dLNormal7-40[facility]'S Medical CenterComment on above:Performed By: #### [id number] #### Pete [facility] [address] [place] [address], [place] [address]Wkllxoixueos [Mass/Vol]48 mg/dLNormal<=149[facility]'S Medical CenterComment on above:Performed By: #### [id number] #### Juan R [facility] [address] [place] [address], [place] [address]cCQPmz 02-19-4474gVOH864 mL/min/1.73 d4Uxzjml>=59[address]'S Medical CenterComment on above:Performed By: #### [id number] #### Pete [facility] [address] [place], [place] [address]OOI,APTIMA HPV,AGE GDLNon 62-25-9827KKF GDLN ACOG TESTINGNote. NOMS HealthcareComment on above:TESTS RESULT FLAG UNITS REF RANGE LAB Clinician Provided Cytology Information Source.............Cervix;Endocervix No. of containers..01 ThinPrep Vial Age Algo ACOG Karol... FLAG LEGEND: L-Low Normal,H-High Normal,LL-Alert Low,HH-Alert High <-Panic Low,>-Panic High,A-Abnormal,AA-Critical Abnormal Performed at: 01 =[address] [address] Laura Castano MD, HPV APTIMANegativeNegativeNOMS HealthcareComment on above:This nucleic acid amplification test detects fourteen high- risk HPV types (16,18,31,33,35,39,45,51,52,56,58,59,66,68) without differentiation. Performed at: =[facility] [id number] Excavating Contractor: Laura Castano MD, Phone: [phone] Performed at: [facility] [id number] Excavating Contractor: Laura Castano MD, Phone: [phone] IGP, APTIMA HPV, RFX 16/18,45Note.NOMS HealthcareComment on above:TESTS RESULT FLAG UNITS REF RANGE LAB DIAGNOSIS: 02 NEGATIVE FOR INTRAEPITHELIAL LESION OR MALIGNANCY. Specimen adequacy: 02 Satisfactory for evaluation. Endocervical and/or squamous metaplastic cells (endocervical component) are present. Performed by: Alejandro Yo, Decorative Engraver Apprentice (ASC) . 02 Note: Note 02 The [...] <-Panic Low,>-Panic High,A-Abnormal,AA-Critical Abnormal Performed at: [address] [address] Laura Castano MD, BRUSH-SPATULA CERVIX ENDOCERVIX [facility] TOMOSYNTHESIS SCREENING BIon 58-11-1819[place]rtPrice, [place] [address] Mammography Report Signed Patient: FE LINTON MR#: [id number] : 1980 Acct:[id number] Age/Sex: 43 / F ADM Date: 01/11/24 Loc: MAMMO Attending Dr: Fernando Garrido D.O. Ordering Physician: Fernando Garrido D.O. Results: Date of Service: 01/11/24 Follow Up: Procedure(s): MM tomosynthesis screening BI Accession Number(s): [id number] cc: Fernando Garrido D.O.; Physician,Non-Staff Marie Patient Name: FE LINTON MR#: [id number] : 1980 Exam Date: 01/11/2024 Ordering Doctor: [...] lung cancer at age 70. LOCATION: [facility] BREAST COMPOSITION: The breasts are extremely dense, [...] Signed By: 01/11/24 1312 DD/ 1311 TD/TT: Wheel Molder:TBHRadiology, Radiologist, - 01/11/2024 [place] [address] Mammography Report Signed Patient: FE LINTON MR#: [id number] : 1980 Acct:[id number] Age/Sex: 43 / F ADM Date: 01/11/24 Loc: MAMMO Attending Dr: Fernando Garrido D.O. Ordering Physician: Fernando Garrido D.O. Results: Date of Service: 01/11/24 Follow Up: Procedure(s): MM tomosynthesis screening BI Accession Number(s): [id number] cc: Fernando Garrido D.O.; Physician,Non-Staff Marie Patient Name: FE LINTON MR#: [id number] : 1980 Exam Date: 01/11/2024 Ordering Doctor: [...] lung cancer at age 70. LOCATION: [facility] BREAST COMPOSITION: The breasts are extremely dense, [...] Signed By: 01/11/24 1312 DD/ 1311 TD/TT: Wheel Molder: [facility] CenterRad[facility] observation (narrative)[facility] TOMOSYNTHESIS SCREENING BIOrdered By: Radiologist Radiology on 38-49-3124BGDFCass Medical Center Work Phone: cytology Cervical or vaginal smear or scraping study Ordered By: Gracia Stacy on 52-30-6193TLVT HealthcareCHEMISTRYOrdered By: SYSTEM SYSTEM on 94-53-4439Eklqfnt [Mass/Vol]4.3 g/dLNormal3.3 - 5.0 gm/dLFT RemisolAlbumin/Globulin [Mass ratio]1.4 {ratio}Normal1.1 - 2.2FTMC RemisolALP [Catalytic activity/Vol]35 [iU]/pMxusnc80 - 98 Int._Unit/LFTMC RemisolALT No additional P-5'-P [Catalytic activity/Vol]13 [iU]/dNormal6 - 46 Int._Unit/LFTMC RemisolAnion gap [Moles/Vol]9 mmol/LNormal6 - 16 mEq/LFTMC RemisolAST [Catalytic activity/Vol]16 [iU]/dNormal5 - 43 Int._Unit/LFTMC RemisolBilirubin [Mass/Vol] 0.4 mg/dLNormal0.0 - 1.1 mg/dLFTMC RemisolCalcium [Mass/Vol]9.8 mg/dLNormal8.9 - 11.1 mg/dLFTMC RemisolChloride [Moles/Vol]104 mmol/AQcbojc122 - 111 mmol/LFTMC RemisolCO2 [Moles/Vol]30 mmol/XPlkwdm73 - 31 mmol/LFTMC RemisolCreatinine [Mass/Vol]0.7 mg/dLNormal0.5 - 1.3 mg/dLFTMC RemisolGFR/1.73 sq M.predicted among non-blacks MDRD (S/P/Bld) [Vol rate/Area]111 mL/min/1.73 i0Uonfrz >=59mL/min/1.73 m2FTMC Chem SGlobulin (S) [Mass/Vol]3.0 g/dLNormal1.4 - 4.0 gm/dLFTMC RemisolGlucose [Mass/Vol]113 mg/eBMfqdlk46 - 199 mg/dLFTMC Remisol Potassium [Moles/Vol]3.7 mmol/LNormal3.5 - 5.3 mmol/LFTMC RemisolProtein [Mass/Vol]7.3 g/dLNormal6.0 - 7.8 gm/dLFTMC RemisolSodium [Moles/Vol]139 mmol/L Nbwthp290 - 145 mmol/LFTMC RemisolTSH Qn1.14 m[IU]/LNormal0.34 - 5.60 mcIU/mL [facility] RemisolUrea nitrogen [Mass/Vol]14 mg/dLNormal5 - 21 mg/dLFTMC RemisolUrea nitrogen/Creatinine [Mass ratio]20 mg/fhEdtjpj87 - 20FT[facility] RemisolMyco/Ureaplasma Culton 13-44-1312Mnqq/Ureaplasma Cult(NOTE)NormalMercy Los Alamitos Medical CenterComment on above:Result Comment: Ureaplasma Species and Mycoplasma hominis Culture ARUP test code [id number] Collected: 05/01/2022 16:59 MT Started: 05/04/2022 12:46 MT Source: Genital Body Site: Genital Free Text Sources: Genital Final Report Culture negative for Mycoplasma hominis Culture negative for Ureaplasma spp Ureaplasma Species and Mycoplasma hominis Culture COLLECTED 05/01/2022 16:59 S=Susceptible, NonS=Nonsusceptible, IND=Indeterminate, I=Intermediate, SDD=Susceptibility is dose dependent, R=Resistant, None=Interpretive guidelines are not availablePerformed By: #### AUREMY #### [place] [id number] Excavating Contractor: Toni Mcfarland MDVaginitis DNA Probeon [id number]aulding County HospitalComment on above:Result Comment: for Brandon sp. Method of testing is a DNA probe intended for detection and identification of Brandon species, Gardnerella vaginalis, and Trichomonas vaginalis nucleic acid in vaginal fluid specimens from patients with symptoms of vaginitis/vaginosis. Performed By: #### VAGP #### [employer] [address] [place], [place] [id number] Excavating Contractor: Porter GraffiveNWilson Memorial HospitalComment on above:Result Comment: for Gardnerella vaginalis Performed By: #### VAGP #### [facility] [place] [address] [place] [address] Excavating Contractor: Jayesh GraffhomonasNegativeNormalNewark HospitalComment on above:Result Comment: for Trichomonas Vaginalis Performed By: #### VAGP #### [address] [address] Excavating Contractor: Juliocesar Graffginvivien DNA Probeon 29-91-5077Azgqxoc Species, DNA ProbeNegativeNEGATIVEBON UC MEDICAL CENTERComment on above:for Brandon sp. Method of testing is a DNA probe intended for detection and identification of Brandon species, Gardnerella vaginalis, and Trichomonas vaginalis nucleic acid in vaginal fluid specimens from patients with symptoms of vaginitis/vaginosis. Gardnerella Vaginalis, DNA ProbeNegativeNEGATIVEBON UC MEDICAL CENTERComment on above:for Gardnerella vaginalisSource.VAGINAL SWABBON UC MEDICAL CENTER Trichomonas Vaginalis DNANegativeNEGATIVECRITICAL ACCESS HOSPITALComment on above:for Trichomonas VaginalisBON UC MEDICAL CENTERSource.VAGINAL SWABNormal Mercy Health Urbana HospitalComment on above:Performed By: #### VAGP #### [address] [address] Excavating Contractor: Juliocesar Graffginvivien DNA Probeon [id number] NormalNewark HospitalComment on above:Result Comment: for Brandon sp. Method of testing is a DNA probe intended for detection and identification of Brandon species, Gardnerella vaginalis, and Trichomonas vaginalis nucleic acid in vaginal fluid specimens from patients with symptoms of vaginitis/vaginosis. Performed By: #### VAGP #### [facility] [place] [address] [place] [address] Excavating Contractor: Khris GraffaNegativeNormalNewark HospitalComment on above:Result Comment: for Gardnerella vaginalis Performed By: #### VAGP #### [facility] [address] [place], [place] [id number] Excavating Contractor: Toni Mcfarland MDTrichomonasNegativeNoangel medical centerNEGMercy Health Urbana HospitalComment on above:Result Comment: for Trichomonas Vaginalis Performed By: #### VAGP #### [facility] [address] [place], [place] [id number] Excavating Contractor: Toni Mcfarland MDVaginitis DNA Probeon 05-29-8474Domwdb.VAGINAL SWABNormalMercy Health Urbana HospitalComment on above:Performed By: #### VAGP #### [employer] [address] [place], [place] [id number] Excavating Contractor: TANA Graff MAMM SCREEN 3D ROXI CADon 10-20-2239CQ MAMM SCREEN 3D ROXI CADPatient: ROYER FE ValdiviaAnthony Exam Date: 12/19/2021 : 1980 Gender:F Ordering : DR FERNANDO GARRIDO . Admission #: [id number] Family : Order #: [id number] CLICK HERE TO VIEW EXAM RADIOLOGY REPORT [...] lung cancer at age 70. LOCATION: [facility] BREAST COMPOSITION: Extremely dense, which lowers the [...] by: Matt Weaver MD on 12/19/2021 at 08:24[facility] ACOG PANEL 2: 30 to 65on 12-15-2021..NormalThe [facility] on above:Result Comment: Performed at: WBPerformed By: #### [id number] #### [facility] [address] [place] [address] Dr. Man ArroyoAge Gdln ACOG Eribpol91-91TthzzgEbtWooster Community HospitalComment on above:Performed By: #### [id number] #### [facility] [address] [place] [address] Dr. Man ArroyoDIAGNOSIS:CommentOhioHealth Berger Hospital on above: Result Comment: NEGATIVE FOR INTRAEPITHELIAL LESION OR MALIGNANCY. THIS SPECIMEN WAS RESCREENED PART OF OUR OPERATIONS CHIEF PROGRAM. Performed at: WBPerformed By: #### [id number] #### [facility] [address] [place] [address] Dr. Man ArroyoHPV AptimaNegativeNormalNegativeChildren'S Hospital Of ColumbusComtrinity health muskegon hospital on above:Result Comment: This nucleic acid amplification test detects fourteen high-risk HPV types (16,18,31,33,35,39,45,51,52,56,58,59,66,68) without differentiation. Performed at: =GPerformed By: #### [id number] #### [facility] [address] [place] [address] Dr. Man ArroyoMethodology:CommentOhioHealth Berger Hospital on above: Result Comment: This liquid based ThinPrep(R) pap test was screened with the use of an image guided system. Performed at: WBPerformed By: #### [id number] #### [facility] [address] [place] [address] Dr. Man ArroyoNote:CommentOhioHealth Berger Hospital on above:Result Comment: The Pap smear is a screening test designed to aid in the detection of premalignant and malignant conditions of the uterine cervix. It is not a diagnostic procedure and should not be used as the sole means of detecting cervical cancer. Both false-positive and false-negative reports do occur. . Performed at: WBPerformed By: #### [id number] #### [facility] [address] [address] [address] Man ArroyoPerformed by:CommentOhioHealth Berger Hospital on above: Result Comment: Jian Driscoll, Decorative Engraver Apprentice ([facility]) Performed at: Performed By: #### [id number] #### [facility] [address] [place] [address] Dr. Man Noguera reviewed by:[facility] on above:Result Comment: Orquidea Buchanan Decorative Engraver Apprentice Performed at: Performed By: #### [id number] #### [facility] [address] [place] [address] Dr. Man ArroyoSpecimen adequacy:[facility] on above:Result Comment: Satisfactory for evaluation. Endocervical and/or squamous metaplastic cells (endocervical component) are present. Performed at: Performed By: #### [id number] #### [facility] [address] [place] [address] Dr. Man Quinones AUTO DIFFon [id number] #0.0 103/ulNormal0.0-0.1Children'S Hospital Of ColumbusComment on above:Performed By: #### CBC #### [facility] [address] [place] [address] Dr. Man ArroyoBasophils/100 WBC (Bld)0.6 %Normal0.2-2.0[facility] Comment on above:Performed By: #### CBC #### [facility] [address] [place] [address] Dr. Man Carlson #0.1 103/ulNormal0.0-0.7The [facility] on above: Performed By: #### CBC #### [facility] [address] [place] [address] Dr. Man Abarcaosinophils/100 WBC (Bld)1.1 %Normal0.9-7.0[facility] Comment on above:Performed By: #### CBC #### [facility] [address] [place] [address] Dr. Man Abarcarythrocyte distribution width (RBC) [Ratio]12.2 %Kkyfbq10.0-15.0 The [facility] HospitalComment on above:Performed By: #### CBC #### [facility] [address] [place] [address] Dr. Man ArroyoHematocrit (Bld) [Volume fraction]43.3 %Dtzioa18.0-48.0The [facility] HospitalComment on above:Performed By: #### CBC #### [facility] [address] [place] [address] Dr. Man ArroyoHemoglobin (Bld) [Mass/Vol]14.4 g/zMOrcnxk91.0-16.0The [facility] HospitalComment on above:Performed By: #### CBC #### [facility] [address] [place] [address] Dr. Man Ulrich #0.02 10e3/ulNormal0.00-0.03The [facility] HospitalComtrinity health muskegon hospital on above:Performed By: #### CBC #### [facility] [address] [place] [address] Dr. Man Ulrich %0.3 %Normal0.0-0.5The [facility] HospitalComtrinity health muskegon hospital on above: Performed By: #### CBC #### [facility] [address] [place] [address] Dr. Man AlexandraMPH #1.7 103/ulNormal1.2-3.8The [facility] HospitalComment on above:Performed By: #### CBC #### [facility] [address] [place] [address] Dr. Man Alexandramphocytes/100 WBC (Bld)27.7 %Yeasai30.5-60.0The [facility] HospitalComtrinity health muskegon hospital on above:Performed By: #### CBC #### [facility] [address] [place] [address] Dr. Man ArroyoMANUAL DIFF REQNONormalThe [facility] HospitalComment on above: Performed By: #### CBC #### [facility] [address] [address] [address] Man Zaragoza (RBC) [Entitic mass]29.2 gzOhpdgt44.7-34.0The [facility] HospitalComment on above:Performed By: #### CBC #### [facility] [address] [place] [address] Dr. Man Zaragoza (RBC) [Mass/Vol]33.3 g/oROuqlat62.9-35.2The [facility] Bend HospitalComment on above:Performed By: #### CBC #### [facility] [address] [place] [address] Dr. Man Zaragoza (RBC) [Entitic vol]87.8 oQRjbuih96.0-99.0The [facility] HospitalComment on above:Performed By: #### CBC #### [facility] [address] [place] [address] Dr. Man Baca #0.5 103/ulNormal0.3-0.8The [facility] HospitalComment on above:Performed By: #### CBC #### [facility] [address] [place] [address] Dr. Man Mcgovernocytes/100 WBC (Bld)7.7 %Normal1.7-12.0[facility] Comment on above:Performed By: #### CBC #### [facility] [address] [place] [address] Dr. Man Carlos #3.9 103/ulNormal1.4-6.5The [facility] HospitalComment on above:Performed By: #### CBC #### [facility] [address] [place] [address] Dr. Man Salasutrophils/100 WBC (Bld)62.6 %Vjhbma24.0-75.0The [facility] HospitalComment on above:Performed By: #### CBC #### [facility] [address] [place] [address] Dr. Man Davislet mean volume (Bld) [Entitic vol]9.7 fLNormal9.5-13.5The [facility] on above:Performed By: #### CBC #### [facility] [address] [place] [address] Dr. Man ArroyoPLT290 103/ezBisnya483-343Jce [facility] on above: Performed By: #### CBC #### [facility] [address] [place] [address] Dr. Man ArroyoRBC4.93 106/ulNormal4.20-5.40The [facility] on above:Performed By: #### CBC #### [facility] [address] [place] [address] Dr. Man ArroyoWBC6.2 103/ulNormal4.0-11.0The [facility] on above: Performed By: #### CBC #### [facility] [address] [place] [address] Dr. Man ArroyoCULTURE URINEon [id number] URINECulture Observations: NO [facility] NorthComtr[facility] on above:Performed By: #### CBC #### [facility] [address] [place] [address] Dr. Man ArroyoPOTASSIUMon 00-05-6721Eikcwqnjo [Moles/Vol]4.4 mmol/LNormal 3.5-5.1The [facility] on above:Performed By: #### CBC #### [facility] [address] [place] [address] Dr. Man ArroyoPRETrudy QUANT HCGon 78-35-2949UBQ QUANT2 mIU/mLNormalThe [facility] on above:Performed By: #### CBC #### [facility] [address] [place] [address] Dr. Man Bowman RANGESEE Newark HospitalComtrinity health [facility] on above: Result Comment: 5-50 0-1 WEEK 40-300 1-2 WEEKS 100-1,000 2-3 WEEKS 500-6,000 3-4 WEEKS 5,000-200,000 1-2 MONTHS 10,000-100,000 2-3 MONTHS 3,000-50,000 2ND TRIMESTER 1,000-50,000 3RD TRIMESTERPerformed By: #### CBC #### [facility] [address] [place] [address] Dr. Man Whitten (CLEAN/CATCH) MICROSCOPIC IF INDICATEon 69-93-4875Goeftzwkp Ql (U)NegativeNormalNEGATIVEChildren'S Hospital Of ColumbusComment on above:Performed By: #### UARMICR #### [facility] [address] [place] [address] Dr. Man ArroyoClarity (U)CLEARNormalCLEARChildren'S Hospital Of ColumbusComment on above: Performed By: #### UARMICR #### [facility] [address] [place] [address] Dr. Man Magaña (U)LT. YELLOWNormalYELLOWChildren'S Hospital Of ColumbusComment on above:Performed By: #### UARMICR #### [facility] [address] [place] [address] Dr. Man ArroyoGlucose Ql (U)NegativeNormalNEGTriHealthComment on above:Performed By: #### UARMICR #### [facility] [address] [place] [address] Dr. Man ArroyoHemoglobin Ql (U)[facility] HospitalrmalHolzer Hospital Comment on above:Performed By: #### UARMICR #### [facility] [address] [place] [address] Dr. Man ArroyoKetones Ql (U)15 mg/dlAbnoalHolzer Hospital Comment on above:Performed By: #### UARMICR #### [facility] [address] [place] [address] Dr. Man ArroyoLEUKOCYTESNegativeNormalNEGTriHealthComment on above:Performed By: #### UARMICR #### [facility] [address] [place] [address] Dr. Man ArroyoNitrite Ql (U)NegativeNormalNEGATIVEChildren'S Hospital Of ColumbusComment on above:Performed By: #### UARMICR #### [facility] [address] [place] [address] Dr. Man ArroyopH (U)7.5 [pH]Normal5-9The [facility] HospitalComment on above: Performed By: #### UARMICR #### [facility] [address] [place] [address] Dr. Man ArroyoSPEC GRAVITY1.078Jhlnwv1.005-<=1.025The [facility] HospitalComment on above:Performed By: #### UARMICR #### [facility] [address] [place] [address] Dr. Man ArroyoUA PROTEINNegativeNormalNEGATIVE/ TRACEThe [facility] Comment on above:Performed By: #### UARMICR #### [facility] [address] [place] [address] Dr. Man ArroyoUR MICRO INDNOT INDICATEDNormalThe [facility] HospitalComment on above:Performed By: #### UARMICR #### [facility] [address] [place] [address] Dr. Man ArroyoUrobilinogen Qn (U)0.2 {Zoey'U}/dLNormal0.2 - 1.0The [facility] HospitalComment on above:Performed By: #### UARMICR #### [facility] [address] [place] [address] Dr. Man ArroyoCovid-19 PCR (CVDSAINT ANNE'S [facility])on 82-35-6067XLDV-CoV-2 (COVID-19) RNA BEBE+probe Ql (Unsp spec)Not detectedNormalNOT DETECTEDChildren'S Hospital Of Columbus Comment on above:Result Comment: This test is not yet approved or cleared by the [place] FDA. When there are no FDA-approved or cleared tests available, and other criteria are met, FDA can make tests available under an emergency access mechanism called an Emergency Use Authorization (EUA). The EUA for this test is supported by the [place] of Health and Human Service's (HHS's) declaration [...] consistent with SARS-CoV-2.Performed By: #### CVDTB #### [facility] [address] [place] [address] Dr. Man ArroyoCHEMISTRYOrdered By: SYSTEM SYSTEM on 36-23-2775Pewgngs [Mass/Vol]4.5 g/dLNormal3.3 - 5.0 gm/dLFTMC RemisolAlbumin/Globulin [Mass ratio] 1.6 {ratio}Normal1.1 - 2.2[facility] RemisolALP [Catalytic activity/Vol]39 [iU]/d Qxkcqp07 - 98 Int._Unit/LFTMC RemisolALT No additional P-5'-P [Catalytic activity/Vol]19 [iU]/dNormal6 - 46 Int._Unit/LFTMC RemisolAnion gap [Moles/Vol] 13 mmol/LNormal6 - 16 mEq/LFTMC RemisolAST [Catalytic activity/Vol]18 [iU]/d Normal5 - 43 Int._Unit/LFTMC RemisolBilirubin [Mass/Vol]0.6 mg/dLNormal0.0 - 1.1 mg/dLFTMC RemisolBilirubin.direct [Mass/Vol]mg/dLNormal0.1 - 0.4 mg/dLFTMC RemisolBilirubin.indirect [Mass or moles/Vol]Unable to Calculate mg/dLInvalid Interpretation Code0.1 - 0.9 mg/dLFTMC RemisolCalcium [Mass/Vol]9.3 mg/dLNormal 8.9 - 11.1 mg/dLFTMC RemisolChloride [Moles/Vol]104 mmol/LCpywxw689 - 111 mmol/L [facility] RemisolCO2 [Moles/Vol]24 mmol/EFdxktw62 - 31 mmol/LFTMC RemisolCreatinine [Mass/Vol]0.8 mg/dLNormal0.5 - 1.3 mg/dLFTMC RemisolGFR/1.73 sq M.predicted among blacks MDRD (S/P/Bld) [Vol rate/Area]mL/min/1.73 m4Offxxq>=59mL/min/1.73 m2[facility] Chem SGFR/1.73 sq M.predicted among non-blacks MDRD (S/P/Bld) [Vol rate/Area]mL/min/1.73 s0Txtits>=59mL/min/1.73 m2[facility] Chem SGlobulin (S) [Mass/Vol]2.8 g/dLNormal1.4 - 4.0 gm/dLFTMC RemisolGlucose [Mass/Vol]102 mg/dL Prbigf62 - 199 mg/dLFTMC RemisolLipase [Catalytic activity/Vol]34 U/OQfamth70 - 58 unit/LFTMC RemisolPotassium [Moles/Vol]3.6 mmol/LNormal3.5 - 5.3 mmol/LFTMC RemisolProtein [Mass/Vol]7.3 g/dLNormal6.0 - 7.8 gm/dLFTMC RemisolSodium [Moles/Vol]137 mmol/DNpvxuj080 - 145 mmol/LFTMC RemisolUrea nitrogen [Mass/Vol] 12 mg/dLNormal5 - 21 mg/dLFTMC RemisolUrea nitrogen/Creatinine [Mass ratio]15 mg/mzYffmni30 - 20FT[facility] RemisolHEMATOLOGYOrdered By: SYSTEM SYSTEM on 06-20-2021 Basophils/100 WBC (Bld)0.8 %Normal0.0 - 2.0 %[facility] HemeAutoSSBasophils/Leukocytes Auto (Bld) [Pure # fraction]0.1 E9/LNormal0.0 - 0.2 E9/LFTMC HemeAutoSS Eosinophils/100 WBC (Bld)1.6 %Normal0.0 - 8.0 %[facility] HemeAutoSS Eosinophils/Leukocytes Auto (Bld) [Pure # fraction]0.1 E9/LNormal0.0 - 0.5 E9/L [facility] HemeAutoSSLymphocytes/100 WBC (Bld)24.6 %Kvapkt91.0 - 50.0 %[facility] HemeAutoSS Lymphocytes/Leukocytes Auto (Bld) [Pure # fraction]1.8 E9/LNormal1.0 - 4.0 E9/L [facility] HemeAutoSSMonocytes/100 WBC (Bld)9.2 %Normal4.0 - 14.0 %[facility] HemeAutoSS Monocytes/Leukocytes Auto (Bld) [Pure # fraction]0.7 E9/LNormal0.2 - 1.0 E9/L [facility] HemeAutoSSNeutrophils/100 WBC (Bld)63.8 %Bzpnvh01.0 - 75.0 %[facility] HemeAutoSS Neutrophils/Leukocytes Auto (Bld) [Pure # fraction]4.7 E9/LNormal2.0 - 7.5 E9/L [facility] HemeAutoSSHEMATOLOGYOrdered By: Jaime Angel on 36-04-3441Ivoborhstza distribution width (RBC) [Ratio]13.6 %Lzvalc32.9 - 14.2 %[facility] HemeAutoSS Hematocrit (Bld) [Volume fraction]40.5 %Ksubcj71.0 - 46.0 %[facility] HemeAutoSS Hemoglobin (Bld) [Mass/Vol]13.7 g/iFOsaqni67.0 - 16.0 gm/dLFTMC HemeAutoSSMCH (RBC) [Entitic mass]29.2 qwXfpflk23.0 - 34.0 pgFTMC HemeAutoSSMCHC (RBC) [Mass/Vol]33.9 g/sKBtqync83.4 - 36.0 gm/dLFTMC HemeAutoSSMCV (RBC) [Entitic vol] 86.2 vOBisnem74.0 - 100.0 fLFTMC HemeAutoSSPlatelet mean volume (Bld) [Entitic vol]8.6 fLNormal6.4 - 10.8 fLFTMC HemeAutoSSPlatelets (Bld) [#/Vol]232.0 E9/L Atttcc107.0 - 500.0 E9/LFTMC HemeAutoSSRBC (Bld) [#/Vol]4.7 E12/LNormal4.3 - 5.9 E12/LFTMC HemeAutoSSWBC corrected for nucl RBC Auto (Bld) [#/Vol]7.4 E9/LNormal 4.0 - 11.0 E9/LFTMC HemeAutoSSSEROLOGYOrdered By: Jaime Angel on 06-20-2021 HCG.beta subunit (U) [Moles/Vol]NegativeNormalSAINT FRANCIS [facility] [place] Man SeroURINALYSISOrdered By: Jaime Angel on 96-56-5113Huvgzngk LM Ql (Urine sed)1+ /HPFInvalid Interpretation CodeTrace/HPFFT UA Auto SSBilirubin Ql (U)Negative (06/20/21 11:22 PM)NormalNegativeSAINT [facility]ANC[facility] [place] [facility]A Auto SSClarity (U)Clear (06/20/21 11:22 PM)NormalClearFCHOCTAW NATION HEALTH CARE CENTER – [place] UA Auto SSColor (U)Yellow (06/20/21 11:22 PM)NormalYellowSAINT FRANCIS [facility] [place] UA Auto SSEpithelial cells.squamous LM.HPF (Urine sed) [#/Area]0-2 /HPFNormal0-2/HPFSAINT FRANCIS [facility] [place] UA Auto SSGlucose Test strip (U) [Mass/Vol]Negative (06/20/21 11:22 PM)NormalNegativeSAINT FRANCIS [facility] [place] UA Auto SSHemoglobin Ql (U)Negative (06/20/21 11:22 PM)NormalNegativeSAINT [facility]ANCIS [facility] [place] [facility]A Auto SSKetones (U) [Mass/Vol]Negative (06/20/21 11:22 PM)NormalNegativeSAINT FRANCIS [facility] [place] UA Auto SSLithium.plasma/[place].RBC (Bld) [Mass ratio]0-3 /HPFNormal0-3/HPFSAINT FRANCIS [facility] [place] [facility]A Auto SSNitrite Ql (U)Negative (06/20/21 11:22 PM)NormalNegativeSAINT FRANCIS [facility] [place] [facility]A Auto SSpH (U)6.0 *NA* (06/20/21 11:22 PM)Invalid Interpretation Code5.0 - 9.0[facility] Auto SSProtein (U) [Mass/Vol]Negative (06/20/21 11:22 PM)NormalNegativeSAINT FRANCIS [facility] [place] [facility]A Auto SSSpecific gravity (U) [Rel density]1.020 *NA* (06/20/21 11:22 PM)Invalid Interpretation Code1.005 - 1.030[facility] Auto SSUA Spec DescClean Catch (06/20/21 11:22 PM)NormalSAINT FRANCIS [facility] [place] UA Auto SSUrobilinogen Qn (U)0.6623107 {Zoey'U}/dLNormal0.0 - 1.0 EU/dLSAINT FRANCIS [facility] [place] UA Auto SSWBC Auto Ql (U)Trace *ABN* (06/20/21 11:22 PM)Invalid Interpretation CodeNegativeSAINT FRANCIS [facility] [place] [facility]A Auto SSWBC LM.HPF (Urine sed) [#/Area]6-15 /HPFInvalid Interpretation Code0-5/HPFSAINT FRANCIS [facility] [place] UA Auto SSUS PELVIS AND TRANSVAGon 49-80-1507ZM PELVIS AND TRANSVAGEXAMINATION: US PELVIS AND TRANSVAG [...] Electronically authenticated by: MATT WEAVER Date: 2021-06-07 07:08[facility] HospitalCHLAMYDIA/GONOCOCCUS BEBE (SWAB/URINE/PAPon 64-82-7996Oeasaykqq trachomatis, NAANegativeNormalNegativeChildren'S Hospital Of ColumbusComment on above: Performed By: #### CT/NGNA #### [facility] [address] [address] [address] Man ArroyoNeisseria gonorrhoeae, NAANegativeNormalNegativeThe [facility] HospitalComment on above:Performed By: #### CT/NGNA #### [facility] [address] [place], [place] [address] Dr. Man ArroyoUS PELVIS AND TRANSVAGon 48-55-5068KN PELVIS AND TRANSVAG EXAMINATION: US PELVIS AND [...] Electronically authenticated by: SHARAD TREVIZO Date: 2021-01-29 16:10[facility] AUTO DIFFon 76-07-8913LNJG #0.1 103/ulNormal0.0-0.1Children'S Hospital Of ColumbusComment on above:Performed By: #### CBC #### [facility] [address] [place] [address] Dr. Man ArroyoBasophils/100 WBC (Bld)0.7 %Normal0.2-2.0[facility] Comment on above:Performed By: #### CBC #### [facility] [address] [place] [address] Dr. Man Carlson #0.1 103/ulNormal0.0-0.7ThDayton VA Medical CenterComment on above: Performed By: #### CBC #### [facility] [address] [place] [address] Dr. Man Abarcaosinophils/100 WBC (Bld)1.0 %Normal0.9-7.0[facility] Comment on above:Performed By: #### CBC #### [facility] [address] [place] [address] Dr. Man Abarcarythrocyte distribution width (RBC) [Ratio]12.5 %Qktwld87.0-15.0 The [facility] HospitalComment on above:Performed By: #### CBC #### [facility] [address] [place] [address] Dr. Man ArroyoHematocrit (Bld) [Volume fraction]42.2 %Wntjga63.0-48.0The [facility] HospitalComment on above:Performed By: #### CBC #### [facility] [address] [place] [address] Dr. Man ArroyoHemoglobin (Bld) [Mass/Vol]14.0 g/bTPbmyog78.0-16.0The [facility] HospitalComment on above:Performed By: #### CBC #### [facility] [address] [place] [address] Dr. Man Ulrich #0.02 10e3/ulNormal0.00-0.03The [facility] HospitalComment on above:Performed By: #### CBC #### [facility] [address] [place] [address] Dr. Man Ulrich %0.2 %Normal0.0-0.5The [facility] HospitalComment on above: Performed By: #### CBC #### [facility] [address] [place] [address] Dr. Man Casas #2.7 103/ulNormal1.2-3.8The [facility] HospitalComment on above:Performed By: #### CBC #### [facility] [address] [place] [address] Dr. Man Amadorhocytes/100 WBC (Bld)26.6 %Cqmmyn42.5-60.0The [facility] HospitalComment on above:Performed By: #### CBC #### [facility] [address] [place] [address] Dr. Man MensahUAL DIFF REQNONormalThe [facility] HospitalComment on above: Performed By: #### CBC #### [facility] [address] [place] [address] Dr. Man Carranza (RBC) [Entitic mass]29.0 hlYsetjx72.7-34.0The [facility] HospitalComment on above:Performed By: #### CBC #### [facility] [address] [place] [address] Dr. Man Zaragoza (RBC) [Mass/Vol]33.2 g/lEIxmxhq31.9-35.2The [facility] HospitalComment on above:Performed By: #### CBC #### [facility] [address] [place] [address] Dr. Man Gonzales (RBC) [Entitic vol]87.6 tLPevbvu44.0-99.0The [facility] HospitalComment on above:Performed By: #### CBC #### [facility] [address] [place] [address] Dr. Man Baca #0.7 103/ulNormal0.3-0.8The [facility] HospitalComment on above:Performed By: #### CBC #### [facility] [address] [place] [address] Dr. Man Mcgovernocytes/100 WBC (Bld)7.0 %Normal1.7-12.0The [facility] Comment on above:Performed By: #### CBC #### [facility] [address] [place] [address] Dr. Man Carlos #6.6 103/ulCritically high1.4-6.5The [facility] Comment on above:Performed By: #### CBC #### [facility] [address] [place] [address] Dr. Man Salasutrophils/100 WBC (Bld)64.5 %Utpudc41.0-75.0The [facility] HospitalComment on above:Performed By: #### CBC #### [facility] [address] [place] [address] Dr. aMn Russell mean volume (Bld) [Entitic vol]10.4 fLNormal9.5-13.5The [facility] HospitalComment on above:Performed By: #### CBC #### [facility] [address] [place] [address] Dr. Man ArroyoPLT255 103/hdNoeajn650-231Lad [facility] HospitalComment on above: Performed By: #### CBC #### [facility] [address] [place] [address] Dr. Man ArroyoRBC4.82 106/ulNormal4.20-5.40The [facility] HospitalComment on above:Performed By: #### CBC #### [facility] [address] [place] [address] Dr. Man ArroyoWBC10.2 103/ulNormal4.0-11.0The [facility] HospitalComment on above:Performed By: #### CBC #### [facility] [address] [place] [address] Dr. Man ArroyoCT ABD/PELV W CONon 21-22-9130LJ ABD/PELV W CONEXAMINATION: CT ABD/PELV W CON [...] Electronically authenticated by: Renee URRUTIA Date: 2021-01-26 03:42NormAvita Health System [facility] HospitalCULTURE URINEon 49-88-3017MWHMIFH URINECulture Observations: No growthNoWooster Community HospitalComment on above:Performed By: #### CBC #### [facility] [address] [address] [address] Man Raya URINE PROFILEon 46-02-4506Hmnyomhos Ql (U)NegativeNormal NEGATIVEChildren'S Hospital Of ColumbusComment on above:Performed By: #### ERUR, PREGU, UMICRO #### [facility] [address] [place] [address] Dr. Man ArroyoClarity (U)CLEARNormalCLEARChildren'S Hospital Of ColumbusComment on above: Performed By: #### ERUR, PREGU, UMICRO #### [facility] [address] [place] [address] Dr. Man Magaña (U)LT. YELLOWNormalYELLOWChildren'S Hospital Of ColumbusComment on above:Performed By: #### ERUR, PREGU, UMICRO #### [facility] [address] [place] [address] Dr. Man Howard micrscopic examination will be performed if indicated. NormalChildren'S Hospital Of ColumbusComment on above:Performed By: #### ERUR, PREGU, UMICRO #### [facility] [address] [place] [address] Dr. Man ArroyoGlucose Ql (U)NegativeNormalNEGATIVEChildren'S Hospital Of ColumbusComment on above:Performed By: #### ERUR, PREGU, UMICRO #### [facility] [address] [place] [address] Dr. Man ArroyoHemoglobin Ql (U)NegativeNormalNEGATIVEChildren'S Hospital Of Columbus Comment on above:Performed By: #### ERUR, PREGU, UMICRO #### [facility] [address] [place] [address] Dr. Man Lam Ql (U)NegativeNormalNEGATIVEThe [facility] HospitalComment on above:Performed By: #### THEOR PREGU, UMICRO #### [facility] [address] [address] [address] Man HuynhOCYTESSMALLAbnormalNEGATIVEThe [facility] HospitalComment on above:Performed By: #### ERUR PREGU, UMICRO #### [facility] [address] [address] [address] Man De La Garza Ql (U)NegativeNormalNEGATIVEThe [facility] HospitalComment on above:Performed By: #### ESTEFANY PREGU, UMICRO #### [facility] [address] [place] [address] Dr. Man ArroyopH (U)6.0 [pH]Normal5-9The [facility] HospitalComment on above: Performed By: #### ESTEFANY PREGU, UMICRO #### [facility] [address] [place] [address] Dr. Man ArroyoSPEC GRAVITY1.406Wnrxki4.005-<=1.025The [facility] HospitalComment on above:Performed By: #### ESTEFANY PREGU, UMICRO #### [facility] [address] [place] [address] Dr. Man ArroyoUA PROTEINNegativeNormalNEGATIVE/ TRACEThe [facility] Comment on above:Performed By: #### ESTEFANY PREGU, UMICRO #### [facility] [address] [place] [address] Dr. Man Santizo MICRO INDINDICATEDNormalThe [facility] HospitalComment on above: Performed By: #### THEOR PREGU, UMICRO #### [facility] [address] [address] [address] Man Roblesino Qn (U)0.2 {Zoey'U}/dLNormal0.2 - 1.0The [facility] HospitalComment on above:Performed By: #### ERUR, PREGU, UMICRO #### [facility] [address] [place] [address] Dr. Man BarkerASEon 53-27-3756Xmbgxs [Catalytic activity/Vol]89.0 U/LNormal 23.0-300.0The [facility] HospitalComment on above:Performed By: #### LIPA, CMP #### [facility] [address] [place] [address] Dr. Man ArroyoPREGNANCY URon 16-59-5653WEDIXZDZE, QUALNegativeNormalNEGATIVEThe [facility] HospitalComment on above:Performed By: #### ERUR, PREGU, UMICRO #### [facility] [address] [place] [address] Dr. Man ArroyoPROConstance 14(COMP METB)on 39-31-8622Dhfghrn [Mass/Vol]4.2 g/dLNormal 3.5-5.0The [facility] HospitalComment on above:Performed By: #### LIPA, CMP #### [facility] [address] [place] [address] Dr. Man ArroyoAlbumin/Globulin [Mass ratio]1.2 {ratio}NormalThe [facility] HospitalComment on above:Performed By: #### LIPA, CMP #### [facility] [address] [place] [address] Dr. Man Chambers [Catalytic activity/Vol]38 U/HSwwvzy46-746Rqc [facility] HospitalComment on above:Performed By: #### LIPA, CMP #### [facility] [address] [place] [address] Dr. Man Schwartz [Catalytic activity/Vol]29 U/LNormal9-52The [facility] Comment on above:Performed By: #### LIPA, CMP #### [facility] [address] [place] [address] Dr. Man Sequeira gap [Moles/Vol]12.5 mmol/LNormalThe [facility] Comment on above:Performed By: #### LIPA, CMP #### [facility] [address] [place] [address] Dr. Man ArroyoAST [Catalytic activity/Vol]17 U/NOdknws04-67Dzz [facility] HospitalComment on above:Performed By: #### LIPA, CMP #### [facility] [address] [address] [address] Man ArroyoBilirubin [Mass/Vol]0.7 mg/dLNormal0.2-1.3TAdena Fayette Medical Center Comment on above:Performed By: #### LIPA, CMP #### [facility] [address] [address] [address] Man ArroyoCalcium [Mass/Vol]9.1 mg/dLNormal8.4-10.2The [facility] Comment on above:Performed By: #### LIPA, CMP #### [facility] [address] [address] [address] Man ArroyoChloride [Moles/Vol]102 mmol/RFmytjj60-127Jrf [facility] Comment on above:Performed By: #### LIPA, CMP #### [facility] [address] [address] [address] Man ArroyoCO2 [Moles/Vol]26.5 mmol/KEykrom03.0-30.0The [facility] Comment on above:Performed By: #### LIPA, CMP #### [facility] [address] [address] [address] Man ArroyoCreatinine [Mass/Vol]0.85 mg/dLNormal0.52-1.04The [facility] HospitalComment on above:Performed By: #### LIPA, CMP #### [facility] [address] [address] [address] Conway ChangEGFR-AF LUXEMBOURGER>60Normal>=60The [facility] HospitalComment on above:Performed By: #### LIPA, CMP #### [facility] [address] [address] [address] Man AbarcaGFR-NON AF LUXEMBOURGER>60Normal>=60The [facility] HospitalComment on above:Performed By: #### LIPA, CMP #### [facility] [address] [address] [address] Man ArroyoGlobulin (S) [Mass/Vol]3.5 g/dLNormMagruder Memorial HospitalComment on above:Performed By: #### LIPA, CMP #### [facility] [address] [address] [address] Man ArroyoGlucose [Mass/Vol]122 mg/dLCritically yobs06-365Zyp [facility] HospitalComment on above:Performed By: #### LIPA, CMP #### [facility] [address] [address] [address] Man ArroyoPotassium [Moles/Vol]3.0 mmol/LCritically low3.4-5.0The [facility]terson Medical Centerment on above:Performed By: #### LIPA, CMP #### [facility] [address] [address] [address] Man ArroyoProtein [Mass/Vol]7.7 g/dLNormal6.1-8.2The [facility] Comment on above:Performed By: #### LIPA, CMP #### [facility] [address] [address] [address] Man ArroyoSodium [Moles/Vol]138 mmol/YMdqwrd029-833Acj [facility] Comment on above:Performed By: #### LIPA, CMP #### [facility] [address] [address] [address] Man ArroyoUrea nitrogen [Mass/Vol]10.0 mg/dLNormal7.0-17.0The [facility] HospitalComment on above:Performed By: #### LIPA, CMP #### [facility] [address] [address] [address] Man ArroyoUrea nitrogen/Creatinine [Mass ratio]11.8 mg/mgNoWooster Community HospitalComment on above:Performed By: #### LIPA, CMP #### [facility] [address] [address] [address] Man ArroyoURINE MICROSCOPIC ONLYon 23-65-2115ZFMMGVJCDMIORLkuzuklrZSHQ SEEN The [facility] on above:Performed By: #### CBC #### [facility] [address] [address] [address] Man Swain identified Cx Nom (U)INDICATEDNoalThDayton VA Medical CenterComtrinity health [facility] on above:Performed By: #### CBC #### [facility] [address] [place] [address] Dr. Man ArroyoCASTNONE SEENNormalNONE SEENGalion Hospital on above:Performed By: #### CBC #### [facility] [address] [address] [address] Man Terryystals LM Nom (Urine sed)NONE SEENNormalNONE SEENGalion Hospital on above:Performed By: #### CBC #### [facility] [address] [place] [address] Dr. Man Lechuga cells LM Ql (Urine sed)FEWAbnormalNONE SEEN /RAREThe [facility] HospitalComtrinity health mus[facility] on above:Performed By: #### CBC #### [facility] [address] [place] [address] Dr. Man MaddenCOUSNONE SEENNormalNONE SEENGalion Hospital on above:Performed By: #### CBC #### [facility] [address] [place] [address] Dr. Man RitterONE SEENAbrmal0-2[facility] on above: Performed By: #### CBC #### [facility] [address] [place] [address] Dr. Man ArroyoWBC0-2AbnormalNONE SEENGalion Hospital on above: Performed By: #### CBC #### [facility] [address] [place] [address] Dr. Man Marie PREPon 99-26-7537IZUV CELLSNONE SEENNormalNONE SEENGalion Hospital on above:Performed By: #### CBC #### [facility] [address] [place] [address] Dr. Man Mackenzie ELEMENTSNONE SEENNormneNONE SEENChildren'S Hospital Of Columbus Comment on above:Performed By: #### CBC #### [facility] [address] [address] [address] Man ArroyoRBC -WET PREPNONE SEENNormalNONE SEENChildren'S Hospital Of ColumbusComment on above:Performed By: #### CBC #### [facility] [address] [address] [address] Man ArroyoTRICHOMONASNONE SEENNormalNONE SEENChildren'S Hospital Of ColumbusComment on above:Performed By: #### CBC #### [facility] [address] [address] [address] Man ArroyoWBC- WET PREPMODERATEAbnormalNONE SEENChildren'S Hospital Of [facility] Comment on above:Performed By: #### CBC #### [facility] [address] [address] [address] Man Marie PREP BACTERIAFEWAbnormalNONE SEENChildren'S Hospital Of ColumbusComment on above:Performed By: #### CBC #### [facility] [address] [address] [address] Man Herbert 63-68-4072JKGULxwvifzgx (IRVINGONGPuneet) FE [place] ([id number]) 1980 F Date Time Provider Department 10/14/20 NO PCP IRVINGONGPuneet During your visit today, we recorded the following information about you: Tyesha Ponce 10/14/2020 2:11 PM Signed Pt is not established at [facility] or within [facility]. Call received from Brooke mill order scheduler at Dr Garrido's office. 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 Advised will forward message to Dr Strong who is nylon mender for office to review and advise if pt may schedule with distribution clerk provider or if needs to see pelvic floor MATHEMATICIAN specialist. Dr Garrido's office call back # is [phone]. ADILENE Bauman MD 10/14/2020 2:18 PM Signed [...] Encounter Status:Closed by LISA HORTON RN on 10/14/20[facility] Vital Signs Date TimeVital SignValuePerforming TmkkmtgbsPfuosrui72-44-5684 16:23-0500Body mass index (BMI) [Ratio]22.05 kg/k5Raqoa Radhika DO Work Phone: [facility] CenterHrbqaqeyfl75-74-5338 16:23-0500Body zvyvgd26.87 kgCorey Radhika DO Work Phone: [facility] CenterPperwfilsj88-50-8656 16:23-0500Diastolic blood cqvmaoxq25 mm[Hg]Fernando Radhika DO Work Phone: [facility] CenterFqweaugjox25-95-2811 16:23-0500Systolic blood wwwtxodu080 mm[Hg]Fernando Radhika DO Work Phone: [facility] CenterHezbvqqmiq95-03-7862 13:07-0400Body fogopu334.2 cmClayton Sim MD Work Phone: [facility]OSaint [facility] HospitalZkhgwqdydg66-91-1024 13:07-0400Body mass index (BMI) [Ratio]22.24 kg/f6FaygicClayton Sim MD Work Phone: [facility] CenterFxeepdnfnw98-18-6084 13:07-0400Body cursib77.41 kgHilary Timmis MD Work Phone: [facility] CenterKgagoejnnr73-90-8032 13:07-0400Diastolic blood camnikkn45 mm[Hg]Clayton Sim MD Work Phone: [facility] CenterXvondbijnr74-27-7152 13:07-0400Heart rate74 /min Clayton Sim MD Work Phone: [facility] CenterUiyedkfqrv58-83-1024 13:07-0400Systolic blood dpromckh478 mm[Hg]Clayton Sim MD Work Phone: [facility] CenterVilquggokh38-99-4051 08:14-0500Blood Pressure LocationPooja Rebecca [phone]-NyvuvChillicothe Hospital 04-14-2024 08:14-0500Diastolic blood tnimipks20 mm[Hg]Elba Rebecca [phone]-GtvaxChillicothe Hospital 04-14-2024 08:14-0500Heart rate70 /minPooja Rebecca [phone]-YexsyChillicothe Hospital 04-14-2024 08:14-0500Respiratory rate16 /minPooja Rebecca [phone]-PdjygChillicothe Hospital 04-14-2024 08:14-8010DuU6% (BldA) [Mass fraction]99 %Elba Rebecca [phone]-PtvxgChillicothe Hospital 04-14-2024 08:14-0500Systolic blood vajlslic788 mm[Hg]Elba Rebecca [phone]-FheybChillicothe Hospital 01-05-2024 16:27-0500Body mass index (BMI) [Ratio]22.21 kg/t8Pokmb Radhika DO Work Phone: [facility] CenterTjdzazepbv51-37-3585 16:27-0500Body oczagn88.32 kgCorey Radhika DO Work Phone: [facility] CenterExkubbhdil55-20-9240 16:27-0500Diastolic blood ijmzgugn51 mm[Hg]Fernando Radhika DO Work Phone: [facility] CenterRhxiyyhceo51-81-3414 16:27-0500Systolic blood okbtdyzi934 mm[Hg]Fernando Radhika DO Work Phone: [facility] CenterTwrolqvkzr72-50-3380 16:13-0500Blood Pressure LocationHaley ROBUCK [phone]-Vdgdr[address] [place] [address] 02-09-2023 16:13-0500Diastolic blood ueqjymwf43 mm[Hg]Reanna ROBUCK [phone]-Uhecu[address] [place] [address] 02-09-2023 16:13-0500Heart rate80 /minHaley ROBUCK [phone]-Yebqr[address] [place] [address] 02-09-2023 16:13-9507UbS4% (BldA) [Mass fraction]97 %Reanna ROBUCK [phone]-Kaarl[address] [place] [address] 02-09-2023 16:13-0500Systolic blood ffiifxoj272 mm[Hg]Reanna ROBUCK [phone]-Vckmq[address] [place] [address] 11-10-2022 16:42-0400Diastolic blood ddwliwct54 mm[Hg]Reanna ROBUCK [phone]-Putbg[address] [place] [address] 11-10-2022 16:42-0400Heart rate68 /minHaley ROBUCK [phone]-BtysaChillicothe Hospital 11-10-2022 16:42-5284LiU3% (BldA) [Mass fraction]100 %Reanna ROBUCK [phone]-Mqykr[address] [place] [address] 11-10-2022 16:42-0400Systolic blood ecdlbige580 mm[Hg]Reanna ROBUCK [phone]-XhtpoChillicothe Hospital 07-03-2021 13:42-0400Blood Pressure LocationReanna WHITLEY [phone]-IyucaChillicothe Hospital 05-05-2022 13:42-0400Diastolic blood xxttucyu21 mm[Hg] Reanna WHITLEY 452-1971Uwzixa-PgxfyChillicothe Hospital 05-05-2022 13:42-0400Heart rate87 /minReanna WHITLEY [phone]-HrzyfChillicothe Hospital 05-05-2022 13:42-4400KiV9% (BldA) [Mass fraction]98 % Reanna WHITLEY [phone]-PzghoChillicothe Hospital 05-05-2022 13:42-0400Systolic blood lifgkwno174 mm[Hg] Reanna WHITLEY [phone]-ZbcyhChillicothe Hospital 04-23-2022 01:11-0400Body duvdznfwbzo35.42 [degF]Shen Mayda [facility]04-23-2022 01:11-0400 Diastolic blood tvubwhbs16 mm[Hg]Shen Mayda [facility]04-23-2022 01:11-0400Heart rate64 /minNoah Mayda [facility]04-23-2022 01:11-0400Mean blood mfviomga74 mm[Hg]Shen Mayda [facility]04-23-2022 01:11-0400 Respiratory rate16 /minNoah Mayda [address]04-23-2022 01:11-9724ByS8% (BldA) [Mass fraction]98 %Shen Mayda [address] [place], [place] 4311504-23-2022 01:11-0400 Systolic blood dhkbklle267 mm[Hg]Shen Mayda [address] [place], [place] 4311504-23-2022 00:21-0400Body zramrwrdyaw93.42 [degF]Shen Mayda [address] [place], [place] 4311504-23-2022 00:21-0400 Diastolic blood geipyxhr21 mm[Hg]Shen Mayda [address] [place], [place] 4311504-23-2022 00:21-0400Heart rate72 /minNoah Mayda [address] [place], [place] 4311504-23-2022 00:21-0400Mean blood pjuejaco39 mm[Hg]Shen Mayda [address] [place], [place] 43[address]504-23-2022 00:21-0400 Respiratory rate16 /minNoah Mayda [address] [place], [place] 9827804-23-2022 00:21-1627ToD2% (BldA) [Mass fraction]99 %Shen Mayda [address] [place], [place] 4311504-23-2022 00:21-0400 Systolic blood gdvfkeys076 mm[Hg]Shen Mayda [address] [place], [place] 9827804-22-2022 22:58-0400Body wwvecxwnhdi81.88 [degF]Shen Mayda [address] [place], [place] 9827804-22-2022 22:58-0400 Diastolic blood ubzarwbt58 mm[Hg]Shen Mayda [address] [place], [place] [address]504-22-2022 22:58-0400Heart rate81 /minNoarielle Mayda [facility]04-22-2022 22:58-0400 Respiratory rate16 /minNoah Mayda [facility]04-22-2022 22:58-4228BtJ0% (BldA) [Mass fraction]99 %Shen Mayda [facility]04-22-2022 22:58-0400 Systolic blood ptrntbek331 mm[Hg]Shen Mayda [facility] Encounters Encounter DateEncounter TypeCare ProviderFacilityStart: 01-08-2025 End: 37-94-7021Ichcvrj encounter procedureCorey Radhika DO Work Phone: [facility] Work Phone: Start: 01-08-2025 End: 37-94-0730Yldcwios preventive med est patient 40-64yrsCorey Radhika DO Work Phone: [facility] OBGYNComment on above:Well woman exam with routine gynecological exam; Breast cancer screening by mammogramStart: 01-08-2025 End: 66-89-6149pszzqsitunPGVAT FAZIONot AvailableStart: 01-08-2025 End: 30-67-5040Rxgwjk flowsheetCorey Radhika DO Work Phone: [facility] OBGYNStart: 01-08-2025 End: 16-91-5754Gjeyhg flowsheetCorey Radhika DO Work Phone: [facility] OBGYNStart: 06-26-2024 End: 16-70-2400awiiebucseUhqjwr H TimmisFacility:FTMCStart: 06-26-2024 End: 05-12-4976Qmsijin encounter procedureHilary H Timmis [facility] Start: 06-26-2024 End: 07-83-7397Rxfzsszdq Result EncounterHijenifer Sim MD Work Phone: [facility] External Department UnsolicitedStart: 06-26-2024 End: 73-17-3600Rypdbopha Result EncounterHijenifer Sim MD Work Phone: [facility] External Department UnsolicitedStart: 06-21-2024 End: 15-57-6673Fomygs outpatient new 30 minutesHilary Brandi iSm MD Work Phone: [facility] CI ENTComment on above:Asymmetric SNHL (sensorineural hearing loss) (Primary Dx); Left-sided tinnitusStart: 06-21-2024 End: 92-74-2007akxesaeixhVUYVQE H TIMMISNot AvailableStart: 06-20-2024 End: 44-91-2086Etjosip encounter procedureEmily Blunt AUD Work Phone: NOETESSK NICK AUDIOLOGYComment on above: Sensorineural hearing loss, bilateral (Primary Dx); Tinnitus, bilateralStart: 06-20-2024 End: 66-49-3138jamqlvsemhKROYZZN S WRIGHTNot AvailableStart: 06-20-2024 End: 47-20-7466Xnazck Seth Blunt AUD Work Phone: NORTESSK BENEDICT AUDIOLOGYStart: 06-20-2024 End: 14-34-9615Fchsuf Seth Blunt AUD Work Phone: NOYTESSK Wavemaker SoftwareDICT AUDIOLOGYStart: 04-14-2024 End: 10-61-7236vdwzfkhteaQuhgk AdhikariFacility:FTMCStart: 04-14-2024 End: 88-77-7663Ftn Drop offPooja Rebecca [facility] Start: 04-14-2024 End: 97-51-8046ddqvgqgiufNsjii AdhikariFacility:[facility] HospitalStart: 04-14-2024 End: 44-07-0958Crjqafb encounter procedurePoart Alarcon [phone]-YytjdChillicothe Hospital Start: 04-14-2024 End: 34-31-9832Kaaxivh examination statusPoart Alarcon [phone]-SeqzdChillicothe Hospital Start: 01-11-2024 End: 09-39-8374Fqyisdmnw Result EncounterCorey Radhika DO Work Phone: [facility] External Department UnsolicitedStart: 01-11-2024 End: 30-66-3175Tosrgyhtw Result EncounterCorey Radhika DO Work Phone: [facility] External Department UnsolicitedStart: 01-05-2024 End: 23-41-4964Klkdtna encounter procedureCorey Radhika DO Work Phone: [facility] Work Phone: Start: 01-05-2024 End: 44-44-9289Ajgcnmpo preventive med est patient 40-64yrsCorey Radhika DO Work Phone: [facility] BCP OBComment on above:Well woman exam with routine gynecological exam; Breast cancer screening by mammogramStart: 01-05-2024 End: 00-26-1966Jbsxin flowsheetCorey Radhika DO Work Phone: [facility] BCP OBStart: 01-05-2024 End: 21-10-6618Uyovxm flowsheetCorey Radhika DO Work Phone: [facility] BCP OBStart: 01-05-2024 End: 91-78-8305Pocqhfcsb Result EncounterCorey Radhika DO Work Phone: [facility] External Department UnsolicitedStart: 02-09-2023 End: 32-55-7777Ukrdowr encounter procedureReanna WHITLEY [phone]-PfevrChillicothe Hospital Start: 11-11-2022 End: 80-47-3545Jflzjcn encounter procedureReanna WHITLEY [facility] Start: 11-10-2022 End: 30-57-0470Ixxaxlq encounter procedureReanna WHITLEY [phone]-KhtuwChillicothe Hospital Start: 06-09-2022 End: 57-27-3209Rtazcumffy hospital visit by Angela BENÍTEZ [facility] Physical TherapyComment on above:Canceled (Patient)Start: 06-03-2022 End: 51-55-5606dkmbuemggwHVBZV [facility] Start: 06-03-2022 End: 89-30-5460Rwcimufzhr hospital visit by Neema Fields PTSTVZ [facility] Physical TherapyStart: 05-27-2022 End: 83-89-1481gqlhwdskngLOBOI [facility] Start: 05-27-2022 End: 43-94-1694Wccoagekga hospital visit by Neema Fields PTSTVZ [facility] Physical TherapyStart: 05-01-2022 End: 83-58-8063bafuecmsnyMXWCS [facility]: 05-[facility]2022 End: 80-46-7426Zcluecesmm hospital visit by Steffany Garrido MD Work Phone: stvz [place] LAB DOCTORComment on above:Vaginal discharge; [place] gland cystStart: 03-16-2022 End: 61-96-6343vignmqjtgrYFUQB [facility] Start: 12-19-2021 End: 47-24-5012cqghkvhprqRE FERNANDO FAZIOFacility:P8Pphkk: 12-08-2021 End: 05-76-7208dqswimnbhpTT FERNANDO FAZIOFacility:A2Bwskj: 07-03-2021 End: 53-37-4940Outtsvd encounter procedureEctorcelia WHITLEY 153-7161Zxusjt-OjqmsChillicothe Hospital Start: 69-66-2259Qklkcroni for preprocedural laboratory examinationDR FERNANDO [facility]at [facility]: 06-27-2021 End: 88-27-9293mquxvbkitcLQ FERNANDO FAZIOFacility:U9Nokad: 06-26-2021 End: 54-54-6618Aanmfhc encounter procedureDaniela Laughlin [phone]-AldqrLakehealth [facility] Start: 06-25-2021 End: 20-76-3370hosshfkvvpLZ FERNANDO FAZIOFacility:K6Txync: 06-25-2021 End: 05-67-0585Bwavgupla for preprocedural laboratory examinationDR FERNANDO GARRIDO Facility:M1Reija: 06-20-2021 End: 07-48-7387Rpsrcgewi department patient visitAniarielle ArtisAnthony Ohara [facility] Start: 06-06-2021 End: 74-50-3944vbcyvilcxfBY Matt WestFacility:C6Wqyqt: 01-29-2021 End: 43-52-5592ziayzhadnsTM FERNANDO FAZIOFacility:R7Dqzai: 01-25-2021 End: 01-24-7273drbceymjjbONEYY PARKERFacility:E7Srooz: 10-14-2020 End: 60-48-5996Hpfripeoi encounterWiley Singh MD Work Phone: Obstetrics/GynecologyComment on above: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 Procedures DateProcedureProcedure DetailPerforming ClinicianStart: 56-93-6090BIL BRAIN W/ + W/O CONTRASTClayton Sim MD Work Phone: Start: 12-56-6362EQSXUKHG FUNCTION TESTSEmily Blunt AUD Work Phone: start: 34-24-8625NU TOMOSYNTHESIS SCREENING BICorey Radhika DO Work Phone: Start: 37-71-3894HQP,APTIMA HPV,AGE GDLNCorey Radhika DO Work Phone: Start: 61-52-1609Xupp cerv/vag auto thin layer prep mnl screenCorey Radhika DO Work Phone: Start: 92-64-4231Byalj brandon species direct probe tq Anabela Boyd DO Work Phone: ablation - action (qualifier value)Shen Ohara Comment on above:uterine Plan of Treatment DateCare ActivityDetailAuthorStart: 01-28-2026 End: 22-91-4915Qxwkjpb encounter udzyeyxej41/30/2026 4:00 PM EST Procedure Visit [facility] [address] [place] [address] Fernando Garrido, DO [address] [place] [address] [facility] OBGYNStart: 01-08-2025 End: 42-84-7072Qyrvmin encounter procedureNOMS BCP OBComment on above:Arrived Start: 01-08-2025 End: 30-13-8363QJ Breast - bilateral ScreeningBilateral screening mammogram Imaging Routine Breast cancer screening by mammogram Expected: 01/08/2025 (Approximate), Expires: 03/10/2026[facility] Work Phone: comment on above:Expected: 01/08/2025 (Approximate), Expires: 03/10/2026Start: 06-21-2024 End: 66-19-9168Vjmiklu encounter mhminvaor93/23/2025 1:10 PM EDT Office Visit [facility] [address] [place] [address] Clayton Sim MD [address] [facility] [address] [place] [address] [facility] CI ENTStart: 06-20-2024 End: 35-57-3430Nylmova encounter ekdjtvjja03/22/2025 3:00 PM EDT Office Visit [facility] [address] [place], [id number] Emily Blunt S, AUD [address] [place] [address] ArrivedNOMARTÍNRenee BENEDICT AUDIOLOGYComment on above:ArrivedStart: 01-05-2024 End: 25-64-8834Vajuffj encounter wziekcjtd43/06/2024 4:00 PM EST Office Visit [facility] [address] [place] [address] Fernando Garrido, DO [address] [place], [place] [id number] [facility]NODOCT[facility] OBComment on above:ArrivedStart: 01-05-2024 End: 52-84-9140II Breast - bilateral ScreeningBilateral screening mammogram Imaging Routine Breast cancer screening by mammogram Expected: 01/05/2024 (Approximate), Expires: 03/06/2025[facility] Work Phone: comment on above:Expected: 01/05/2024 (Approximate), Expires: 03/06/2025Start: 79-31-4222Iblukehxv vaccinationFlu vaccine (Season Ended)[facility]ENTERStart: 06-09-2022 End: 56-98-6458Ewuevsa encounter procedureSelect Medical [facility] Centerjackie Ditch Repairer [place] CreekStart: 06-03-2022 End: 72-48-7120Keusmpo encounter jspbffcup93/05/2023 Appointment Physical Therapy Rhonda Fields, PROTVKandace Romero Physical TherapyStart: 05-18-2022 End: 62-91-3934Rcqbnsklf qbugcyaoa09/20/2023 Scheduled Telephone Encounter Obstetrics and Gynecology Anabela Boyd, DO [address] [place] [address] [facility] Ditch Repairer [place] Start: 32-13-9260Objhduvpo vaccinationFlu vaccine (#1)[facility] Start: 70-37-8718Grtvdlmia vaccinationINFLUENZA (#1)[facility]: 67-10-0672Igmgs panelLipidsBon Secours St. Francis Medical Centerart: 05-42-7484Wsueubybkje MAMMOGRAMLancaster Municipal Hospitaltart: 33-48-1739BSY TESTINGPAP TESTINGMagruder Memorial Hospital Start: 10-96-2294ATI TESTINGHPV TESTINGLancaster Municipal Hospitaltart: 2010 Screening for malignant neoplasm of cervixBon Secours St. Francis Medical Centerart: 60-89-4340Hazkdgvan for malignant neoplasm of cervixPap smearRiverside Health System: 05-38-6768FFdH/Tdap/Td vaccine (1 - Tdap)DTaP/Tdap/Td vaccine (1 - Tdap)[facility]: 24-84-8739Htslw microalbumin profile DTAP,TDAP,TD (1 - Tdap)[facility]: 49-32-2859MDIWJCSWY C SCREENING HEPATITIS C SCREENINGLancaster Municipal Hospitaltart: 49-16-9642Dgsmpurgj C screening Hepatitis C screenRiverside Health System: 87-26-8039GYL SCREENINGHIV SCREENINGLancaster Municipal Hospitaltart: 05-58-5526BAW screeningHIV screenRiverside Health System: 60-51-0762Tczrx depression screening assessmentDEPRESSION SCREENINGLancaster Municipal Hospitaltart: 40-42-3156IXSNE-19 VACCINE (1)COVID-19 VACCINE (1)[facility]: 98-06-4374Mnwryxmadk ScreenDepression ScreenBon Secours St. Francis Medical Centerart: 50-41-7150Kyofendth vaccine (1 of 2 - 2-dose childhood series)Varicella vaccine (1 of 2 - 2-dose childhood series)[facility]: 51-52-0884QRETY-19 Vaccine (#1)COVID-19 Vaccine (#1)[facility] [employer] End: 55-27-4887Mlllvxg, Ureaplasma/Mycoplasma hominisBON COASTAL COMMUNITIES HOSPITAL [employer] Work Phone: comment on above:1 Occurrences starting 05/01/2022 until 05/01/2022THIN PREP TIS PAP AND HR HPV DNATHIN PREP TIS PAP AND HR HPV DNA Pathology and Cytology Routine Well woman exam with routine gynecological exam Ordered: 01/05/2024[facility] HealthcareComment on above:Ordered: 01/05/2024THIN PREP TIS PAP AND HR HPV DNATHIN PREP TIS PAP AND HR HPV DNA Pathology and Cytology Routine Well woman exam with routine gynecological exam Ordered: 01/08/2025[facility] HealthcareComment on above:Ordered: 01/08/2025 Immunizations Immunization DateImmunizationNotesCare ProviderFacilityNEGATED: Highlighted row has not occurred!76-68-7778gvozwcpbs virus vaccine, unspecified formulationReanna WHITLEY [phone]-AuwkxChillicothe Hospital Payers DatePayer CategoryPayerPolicy [id number] Health Insurance [id number] Care HMO (unspecified) [id number] Health [id number] 2..840.1.526014.3.579.2.593 [id number] 2..840.1.342258.3.57[id number] 2.16.840.1.541832.3.57[id number] 2.16.840.1.439028.3.57[id number] 2.16.840.1.921021.3.57[id number] 2.16.840.1.249863.3.57[id number] 2.16.840.1.009785.3.579.[id number] 2.840.1.830537.3.57[id number] 2.840.1.843018.3.57[id number] 2.840.1.983202.3.57[id number] 2.840.1.214243.3.57[id number] 2.840.1.193506.3.57[id number] 2.840.1.327683.3.579.[id number] 2.840.1.411937.3.57[id number] 2.840.1.563042.3.57[id number] 2.840.1.618267.3.57[id number] 2.840.1.353023.3.579.2.137480-21-6937Syvergj Health [id number] Social History DateTypeDetailFacilityTobacco smoking status NHISUnknown if ever smokedLancaster Municipal Hospitaltart: 22-52-2779Qsn Assigned At BirthNot on fileLancaster Municipal Hospitaltart: 06-20-2021 End: 71-34-6322Ykcxjly smoking statusNever smoked tobacco (finding)[facility] Hospitaltart: 12-31-2023 End: 88-76-3637Cdf Assigned At BirthFeLakeHealth Beachwood Medical Centertart: 18-78-4963Yekqgng smoking statusNeverChillicothe Hospital Start: 03-16-2022 End: 17-86-9059Jwnrjgi use and exposureSmokeless tobacco non-userB[employer] Work Phone: start: 05-01-2022 End: 85-99-6937Gyounii intakeEx-drinker (finding)[employer] Work Phone: start: 18-35-9565Tqapvmc CommentsocialBON BANNER CASA GRANDE MEDICAL CENTERLamsa [facility] MEDICAL CENTERCardio control Work Phone: start: 12-31-2023 End: 92-10-5217Euvxpcuax beverage intakeCurrent drinker of alcohol (finding)[facility] HealthcareStart: 12-31-2023 End: 41-54-7789Yspigxg of Social functionNOMS HealthcareStart: 51-08-8311Ulqkpyf CommentoccNOMS HealthcareSexual OrientationKindred Healthcare Start: 45-44-1556GipMsiujv (finding)[facility] Functional Status WdsnSmvshkzcfqKnlnoiBdcqjqne02-67-6839Zxzgmviiwk StatusN/AFSCCI Hospital [facility] Clinical Notes 10-14-2020 to 01-08-2025 Note Date & MxrnMxpyNamwutag88-70-0803 History of Present illness Narrative* Alisha Hill NP - 01/08/2025 4:00 PM EST Reason for Appointment: Patient ID: Fe Linton is a 44 y.o. female who presents for Well Women Visit Patient presents today for Annual Exam. MEDICATIONS Current Outpatient Medications Medication Instructions fluticasone (Flonase) 50 MCG/ACT nasal spray 1 spray, Daily ALLERGIES No Known Allergies PROBLEMS Active Ambulatory Problems Diagnosis Date Noted Abdominal cramps 06/19/2024 BMI 22.0-22.9, adult 06/19/2024 Dark stools 06/19/2024 Fatigue 06/19/2024 Lightheaded 06/19/2024 Onychomycosis of toenail 06/19/2024 Pelvic pain 03/16/2022 Ringing in ears 06/19/2024 [place] gland cyst 05/06/2022 Vulvodynia 03/16/2022 Unspecified mononeuropathy of right lower limb 06/21/2024 Resolved Ambulatory Problems Diagnosis Date Noted No Resolved Ambulatory Problems Past Medical History: Diagnosis Date Exposure to herpes Menorrhagia 2018 Nerve pain Ovarian cyst 2001 Vaginal lesion HISTORY PAST MEDICAL HISTORY SOCIAL HISTORY Past Medical History: Diagnosis Date Exposure to herpes Menorrhagia 2018 Nerve pain Ovarian cyst 2001 Pelvic pain Vaginal lesion Social History Tobacco Use Smoking status: Never Smokeless tobacco: Never Substance Use Topics Alcohol use: Yes Comment: occ Drug use: Never FAMILY HISTORY Family History Problem Relation Name Age of Onset Alcohol abuse Father Jean Alonso Cancer Father Jean Alonso Lung disease Father Jean Alonso Cancer Paternal Grandfather Jean Puentes SURGICAL HISTORY Past Surgical History: Procedure Laterality Date ABDOMINAL [...] nursing note reviewed. Exam conducted with a cotton bag sewer present. Vitals: Estimated body mass index is 22.05 kg/m as calculated from the following: Height as of 06/21/24: 5' 7 . Weight as of this encounter: 140 lb 12.8 oz. BP: 104/62 Patient's last menstrual period was 01/06/2025. Assessment/Plan ICD-10-CM 1. Well woman exam with routine gynecological exam Z01.419 THIN PREP TIS PAP AND HR HPV DNA CANCELED: THIN PREP TIS PAP AND HR HPV DNA 2. Breast cancer screening by mammogram Z12.31 Bilateral screening mammogram Bilateral screening mammogram CANCELED: Bilateral screening mammogram CANCELED: Bilateral screening mammogram Annual Exam: Patient presents today for an annual exam. Patient states she is doing well and has no complaints. Pap was obtained without difficulty. Orders Placed This Encounter Procedures Bilateral screening mammogram Follow Up: Patient is to return in one year for annual unless needed otherwise. Documented by Alisha Hill NP on behalf of: Fernando Garrido DO documented in this encounterCass Medical CenterYhneeedmis31-65-8607 History of Present illness Narrative* Clayton Sim [...] Pelvic pain 03/16/2022 Ringing in ears 06/19/2024 [place] gland cyst 05/06/2022 Vulvodynia 03/16/2022 Unspecified mononeuropathy of right lower limb 06/21/2024 Resolved Ambulatory Problems Diagnosis Date Noted No Resolved Ambulatory Problems Past Medical History: Diagnosis Date Exposure to herpes Menorrhagia 2018 Nerve pain Ovarian cyst 2000 Vaginal lesion Past Surgical History: Procedure Laterality Date ABDOMINAL SURGERY 2000, 2021 ENDOMETRIAL ABLATION 2017 LAPAROSCOPY DIAGNOSTIC / BIOPSY / ASPIRATION / [...] for better hearing protection. documented in this [facility]04-22-2025 History of Present illness Narrative* ELLA Mccormick [...] mild to moderate high frequency hearing loss 8870-8919 Hz in the right ear. The left ear exhibited normal hearing 250-3000 Hz, sloping to a moderate to severe sensorineural hearing loss 0783-5430 Hz. Hallpike: Yielded negative results in both positions tested. Speech Audiometry Right SRT = 20 dB and word discrimination score at 50 dBHL = 100% Left SRT = 10 dB and word discrimination score at 50 dBHL = 100% Tympanometry Normal tympanograms, bilaterally, indicating normal middle ear function Impressions: Dr. Sim 06/21/2024 documented in this [facility]02-14-2025 Hospital Discharge instructions Patient Education 04/14/2024 11:30:22 [...] what problems to watch for. Antifungal nail sierra leonean or nail cream. These may be used along with oral antifungal medicines. Laser treatment of the nail. Surgery to remove the nail. This may be needed for the most severe infections. It can take a long time, usually up to a year, for the infection to go away. The infection may alsocome back. Follow these instructions at home: Medicines Take or apply zusb-zey-hbcezia and prescription medicines only as told by your health care provider. Ask your health care provider about using wlqn-zvr-aabhejj mentholated ointment on your nails. Nail care [...] infection may alsocome back. Take or apply upum-fkh-aetpxja and prescription medicines only as told by your health care provider. This information is not intended to replace advice given to you by your health care provider. Make sure you discuss any questions you have with your health care provider. Document Revised: 05/19/2021 Document Reviewed: 05/19/2021 [employer] Patient Education 2023 [employer]. [employer] 04/14/2024 09:06:32 Tinnitus Tinnitus Tinnitus refers to [...] care provider who specializes in hearing disorders (orientation and mobility instructor). You may be asked questions about your [...] These substances may make tinnitus worse. Take birr-xsc-zqutwhv and prescription medicines only as told by [...] provider. Document Revised: 01/20/2021 Document Reviewed: 01/20/2021 [employer] Patient Education 2023 [employer]. Follow Up Care 04/13/2024 16:06:00 With:Elba Gonzalez FAM Address: [address] [place] [phone] When:1 year Comments:Call today to schedule your follow up [facility] 02-14-2025 NotePatient Education Infectious Disease Fungal [...] problems to watch for. ??? Antifungal nail sierra leonean or nail cream. These may be used [...] at home: Medicines ??? Take or apply vouh-ueo-buzlnlb and prescription medicines only as told by your health care provider. ??? Ask your health care provider about using wzhi-zvg-jdwczyt mentholated ointment on your nails. Nail care [...] also come back. ??? Take or apply chal-pxx-ovtysvv and prescription medicines only as told by your health care provider. This information is not intended to replace advice given to you by your health care provider. Make sure you discuss any questions you have with your health care provider. Document Revised: 05/19/2021 Document Reviewed: 05/19/2021 Elsevier Patient Education ? 2023 S.[employer]. [employer] Neurology Tinnitus Tinnitus refers to hearing [...] is constant or happens (more content not included)...[facility]11-06-2024 History of Present illness Narrative* Hanna Pena LPN - 01/05/2024 4:00 PM EST Reason for [...] nursing note reviewed. Exam conducted with a cotton bag sewer present. Vitals: Estimated body mass index is [...] of: Fernando Garrido DO documented in this encounterCass Medical CenterIdaptduqcc45-87-7300 Hospital Discharge instructions Follow Up Care 11/10/2022 17:25:49 With:Reanna WHITLEY CNP Address: [address] [place], [place] [id number]- When: only if needed [facility] 08-29-2023 Hospital Discharge instructions Follow Up Care 10/27/2022 15:30:44 With:Reanna WHITLEY CNP Address: [address] [place], [place] [id number]- When:Within 3 Month(s) [facility] 05-04-2022 Hospital Discharge instructions Follow Up Care 07/02/2021 15:04:43 With:Reanna WHITLEY CNP Address: [address] [place] [address]- When: only if needed With:Reanna WHITLEY CNP Address: [address] [place], [place] [id number]- When: only if needed [facility] 04-29-2022 NoteThe [place], [place] NAME: FE LINTON DATE OF : MEDICAL REC#: [id number] ANIMAL HEALTH TECHNICIAN: [address] [facility], TRANSADMIT DATE: 06/27/2021 09:23:00 FILLING AND STAPLING MACHINE OPERATOR DATE: 06/28/2021 00:00 DICTATING PHYSICIAN: FERNANDO GARRIDO DICTATION DATE: 06/27/2021 12:00 OPERATIVE NOTE OPERATION DATE: 06/27/2021 PROCEDURE: Diagnostic laparoscopy. PREOPERATIVE DIAGNOSIS: Pelvic pain. POSTOPERATIVE DIAGNOSIS: Pelvic pain. ANESTHESIA: General. SURGEON: Fernando Garrido D.O. COLUMNIST/COMMENTATOR: ASHLEY Goins. URINE OUTPUT: Yellow and clear. [...] Approved by: DR FERNANDO GARRIDO . 07/06/2021 12:29:00[facility]04[facility] Hospital Discharge instructions Patient Education 06/21/2021 01:16:24 [...] Follow these instructions at home: Medicines Take yejh-vwg-dcwbkas and prescription medicines only as told by [...] Watch your condition for any changes. Take abnt-jwo-fxzcmvj and prescription medicines only as told by [...] 11/25/2005 Document Revised: 06/26/2019 Document Reviewed: 06/26/2019 [employer] Patient Education 2020 Insightly. Follow Up Care 06/20/2021 22:57:25 With:Yolanda CHEUNG Address: [address], [place] [address] Business (1) When:06/24/2021 [facility]04-22-2022 Evaluation + Plan noteExtracted from: Title:ED NoteAuthor:Mayda Shen HEADLEYAnthonyDate:06/20/21 Acute UTI (N39.0: Urinary tr act infection, site not specified) AP (abdominal pain) (R10.9: Unspecified abdominal pain) Orders: cephalexin, 500 mg = 1 cap(s), Cap, Oral, Once, Stop date 06/21/21 1:04:00 EDT, STAT, Start date 06/21/21 1:04:00 EDT, 06/21/21 1:04:00 EDT cephalexin, 500 mg = 1 cap(s), Oral, q12hr, X 5 day(s), # 10 cap(s), Refills(s) 0, Pharmacy: [facility], 170, cm, 06/20/21 23:04:00 EDT, Height/Length Dosing, 64.3, kg, 06/20/21 23:04:00 EDT, Weight Dosing famotidine, 10 mg = 1 tab(s), Oral, BID, X 14 day(s), # 28 tab(s), Refills(s) 0, Pharmacy: [facility], 170, cm, 06/20/21 23:04:00 EDT, [...] Diagnostic Tests Pending * Urine Culture 06/20/21 [facility]08-16-2021 Miscellaneous Notes* Telephone Encounter - Lisa Horton [...] PM EDT Pt is not established at [facility] or within [facility]. Call received from Brooke mill order scheduler at Dr Garrido's office. 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 Advised will forward message to Dr Strong who is nylon mender for office to review and advise if pt may schedule with distribution clerk provider or if needs to see pelvic floor MATHEMATICIAN specialist. Dr Garrido's office call back # is [phone]. Tyesha Ponce RN documented in this encounterMagruder Memorial HospitalEvaluation + Plan note Future Appointments Appointment Date:02/09/2023 04:20:00 PM Scheduled Provider:Reanna WHITLEY CNP Location:[facility] Appointment Type: Open Future Scheduled Tests Laboratory* Fecal WBC Lactoferrin 11/10/22 * Giardia lamblia, Direct Detection EIA 11/10/22 * O & P Exam, Routine 11/10/22 * TSH With T4fr Reflex 11/10/22 * Rotavirus Ab 11/10/22 * Clostridium Difficile PCR 11/10/22 * Stool Occult Blood 11/10/22 * Enteric Panel by PCR 11/10/22 * Comprehensive Metabolic Panel 11/10/22 [facility] Evaluation + Plan note Future Appointments Appointment Date:02/09/2023 04:20:00 PM Scheduled Provider:Reanna WHITLEY CNP Location:[facility] Appointment Type: Open Future Scheduled Tests Laboratory* Fecal WBC Lactoferrin 11/10/22 * Giardia lamblia, Direct Detection EIA 11/10/22 * O & P Exam, Routine 11/10/22 * Rotavirus Ab 11/10/22 * Clostridium Difficile PCR 11/10/22 * Stool Occult Blood 11/10/22 * Enteric Panel by PCR 11/10/22 [facility] Healthcare[facility] + Plan [place] Evaluation + Plan [place] Evaluation note* Diagnosis Vaginal discharge Leukorrhea, not specified as infective [place] gland cyst Other specified disorders of urinary tract documented in this encounter [facility] Work Phone: evaluation note* Diagnosis Well woman [...] in this encounter [facility] HealthcareEvaluation note* Diagnosis Well woman exam with routine gynecological exam Routine gynecological examination Breast cancer screening by mammogram documented in this encounter [facility] HealthcareHospital course Narrative No data available for this section [facility] Discharge instructions No data available for this section [facility] Primary Care Progress note No data available for this section [facility] Reason for referral (narrative) Referred by: Reanna WHITLEY CNP [facility] Reewvz for referral (narrative) Referred by: Elba GonzalezDrumright [facility] Summary Purpose Family History No Family History Records FoundNo Family History Records FoundNo Family History Records Found No data available for this section No data available for this section No data available for this section No Family History Records FoundNo Family History Records FoundNo Family History Records Found No data available for this section No Family History Records FoundNo Family History Records Found Advance Directives No [...] or prosecute any alcohol or drug abuse patient.Magruder Memorial HospitalIn the event this information is protected by the Federal Confidentiality of Alcohol and Drug Abuse Patient Records regulations: The Federal rules restrict any use of the information to criminally investigate or prosecute any alcohol or drug abuse patient.[facility] Reason for Visit (unrecogniz ed section and content) ReasonCommentsOpened In ErrorReasonCommentsvulvodyniaSpecialtyDiagnoses / ProceduresReferred By ContactReferred To ContactPhysical Therapist / Physical Therapy Diagnoses Pelvic and perineal pain Procedures HC PT EVAL LOW COMPLEX HC PT THERAPEUTIC EXERCISE,EA 15 MIN Kely Gomez, DO [address] [place] [address] Rhonda Fields PT Referral IDStatusReasonStart DateExpiration DateVisits RequestedVisits [id number]/29/20233/28/[id number] Women Visit ReasonCommentsTinnitusAudio 06/20/24 INFORMATION SOURCE (unrecogn ized section and content) DATE CREATED AUTHOR 10/16/2020 [facility] DATE CREATED AUTHOR AUTHOR'S ORGANIZ ATION 12/25/2021 [facility] DATE CREATED AUTHOR AUTHOR'S ORGANIZ ATION 06/05/2022 [facility] DATE CREATED AUTHOR AUTHOR'S ORGANIZ ATION 04/16/[address] [facility] DATE CREATED AUTHOR AUTHOR'S ORGANIZ ATION 07/03/[address] [facility] DATE CREATED AUTHOR AUTHOR'S ORGANIZ ATION 01/09/2025 [facility] EPIC Care Teams (unrecognized sec tion and content) Team MemberRelationshipSpecialtyStart DateEnd Date Fernando Garrido MD [facility] [place] [address] PCP - GeneralObstetrics & Gynecology03/16/22Team MemberRelationshipSpecialtyStart DateEnd Date Fernando Garrido MD [facility] [place] [address] PCP - GeneralObstetrics & Gynecology03/16/22Team MemberRelationshipSpecialtyStart DateEnd Date Fernando Garrido MD [facility] [place] [address] PCP - GeneralObstetrics & Gynecology03/16/22Team MemberRelationshipSpecialtyStart DateEnd Date Elba Alarcon NP [address] [place] [address] PCP - GeneralFamily Medicine06/20/24Team MemberRelationshipSpecialtyStart DateEnd Date Elba Alarcon NP [address] [facility] [address] PCP - Generalmily Medicine06/20/24Team MemberRelationshipSpecialtyStart DateEnd Date Elba Alarcon NP [address] [place] [address], [place] [address] PCP - Generalmily Medicine06/20/24Team MemberRelationshipSpecialtyStart DateEnd Date Elba Alarcon NP [address] [facility] [address] [facility] - [facility]06/20/24Team MemberRelationshipSpecialtyStart DateEnd Date Elba Alarcon NP [address] [place] [address], [place] [address] PCP - Generalmi Medicine06/20/24 FOR RECORDS PERTAINING TO PATIENTS WHO ARE [...] BE BASED ON THE PRIMARY CLINICAL RECORDS. [facility]. provides no warranty or guarantee of the accuracy or completeness of information in this document.
--- OUTSIDE RECORDS SUMMARY | 2025-02-02 07:44 | XMS_ITS | Clinical Summary ---
Author Organization [facility] Address [address] [facility] [place] [address] Care Team Providers Care Privacy Analyst Name Role Phone DorianElba NATHEN Primary Care Provider [phone] Allergies No known active allergies Medications MedicationSigDispense QuantityRefillsLast FilledStart DateEnd DateStatus fluticasone (Flonase) 50 MCG/ACT nasal spray Administer 1 spray into each nostril Daily Shake gently. Before first use, prime pump. 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/2024): Recurrent skene's gland cysts Pelvic pain03/16/20223672Kcbukzhucs43/16/2023 Encounters DateTypeDepartmentCare ZoiqAcwszoimcaj86/21/2025Orders Only NOMSteff JOHNSON [address] [place] [id number] Lata Raza LPN 01/08/2025 4:00 PM ESTOffice Visit [facility] Niles JOHNSON [address] [place] [address] Fernando Garrido DO Well woman exam with routine gynecological exam; Breast cancer screening by pllloszgt30/10/2025Clinisync Result Encounter NOMS External Department Unsolicited Alisha Hill NP 5Bamboo flowsheet [facility] Nlies JOHNSON [address] [facility] [place] [address] Fernando Garrido DO from Last 3 Months Family History Medical HistoryRelationNameCommentsAlcohol abuseFatherJohn JrCancerFatherJohn Jr Lung diseaseFatherJohn JrCancerPaternal GrandfatherJohn SrRelationNameStatus CommentsFatherJohn JrPaternal GrandfatherJohn SrAlive Social History Tobacco UseTypesPacks/DayYears UsedDateSmoking Tobacco: NeverSmokeless Tobacco: Never Tobacco Cessation:Counseling Given: Not Answered Alcohol UseStandard Drinks/WeekCommentsYes0 (1 standard drink = 0.6 oz pure alcohol)occCommentsUnknownSex and Gender InformationValueDate Recorded Sex Assigned at BirthNot on fileLegal FgzOtvdjk06/15/2023 6:35 PM EDTGender IdentityNot on fileSexual OrientationNot on file Last Filed Vital Signs Vital SignReadingTime TakenCommentsBlood Wciekrob653/6201/08/2025 4:23 PM EST Dllfc192206/21/2024 1:07 PM EDTTemperature--Respiratory Rate--Oxygen Saturation-- Inhaled Oxygen Concentration--Oyrjzl61.9 kg (140 lb 12.8 oz)01/08/2025 4:23 PM LHQQbwpak610.2 cm (5' 7 )06/21/2024 1:07 PM EDTBody Mass Index22.05006/21/2024 1:07 PM EDT Plan of Treatment DateTypeDepartmentCare Team (Latest Contact Info)Fuzkrgwappi23/30/2026 4:00 PM ESTProcedure Visit [facility] Niles JOHNSON [address] [place] [address] Fernando Garrido DO [address] [place] [address] Procedures Procedure NamePriorityDate/TimeAssociated DiagnosisCommentsIGP,APTIMA HPV,AGE WOMYAbonoap29/10/2025 4:16 PM EST PAP TEST, JDTJPIHGZqhqhru16/10/2025 12:00 AM ESTfrom Last 3 Months Results * IGP,APTIMA HPV,AGE GDLN (01/08/2025 4:16 PM EST)ComponentValueRef RangeTest MethodAnalysis TimePerformed AtPathologist SignatureAGE GDLN ACOG TESTINGNote. TBHComment: ?? TESTS ? RESULT ??FLAG ??UNITS ?REF RANGE ??LAB ?? Clinician Provided Cytology Information ?? Source.............Cervix;Endocervix ?? No. of containers..01 ThinPrep Vial Age Algo ACOG Karol... ??30-65 ? 01 ?FLAG LEGEND: ?L-Low Normal,H-High Normal,LL-Alert Low,HH-Alert High <-Panic Low,>-Panic High,A-Abnormal,AA-Critical Abnormal Performed at: 01 =G ?[facility] [place] ?? [address] [place], [place] ??[address] ?? Laura Castano MD, IGP, APTIMA HPV, RFX 16/18,45Note.TBHComment: ?? TESTS ? RESULT ??FLAG ??UNITS ?REF RANGE ??LAB DIAGNOSIS: ?02 ?? NEGATIVE FOR INTRAEPITHELIAL LESION OR MALIGNANCY. Specimen adequacy: ?02 ?? Satisfactory for evaluation. ??Endocervical and/or squamous metaplastic ?? cells (endocervical component) are present. Performed by: ? 02 ?? Mareln Maritn, Senior Medical Technologist (ASCP) . ? 02 Note: ? Note ?02 ?? The Pap smear is a screening test designed to aid in the ?? detection of premalignant and malignant conditions of the ?? uterine cervix. ??It is not a diagnostic procedure and ?? should not be used as the sole means of detecting cervical ?? cancer. ??Both false-positive and false-negative reports do ?? occur. Test Methodology: ? Note ?02 ?? This liquid based ThinPrep(R) pap test was interpreted ?? using the [employer](R) [employer](TM) Cervical Algorithm whole ?? slide imaging system. HPV Genotype Reflex ?? Note ?02 ?? Criteria not met, HPV Genotype not performed. ?FLAG LEGEND: ?L-Low Normal,H-High Normal,LL-Alert Low,HH-Alert High <-Panic Low,>-Panic High,A-Abnormal,AA-Critical Abnormal Performed at: 02 WB ?[facility] ?? [address] [facility] [place], [place] ??[address] ?? Laura Castano MD, HPV APTIMANegativeNegativeTBHComment: This nucleic acid amplification test detects fourteen high- risk HPV types (16,18,31,33,35,39,45,51,52,56,58,59,66,68) without differentiation. Performed at: ??=G - [facility] [address] [place], [place] ??[id number] Plant Senior Manager: Laura Castano MD, Phone: ??[phone] Performed at: ??WB - [facility] [address] [place] ??[id number] Plant Senior Manager: Laura Castano MD, Phone: ??[phone] Specimen (Source)Anatomical Location / LateralityCollection Method / Volume Collection TimeReceived Time01/08/2025 4:16 PM EST01/08/2025 9:18 PM EST Narrative [facility] - 01/11/2025 12:09 PM EST BRUSH-SPATULA CERVIX ENDOCERVIX Authorizing ProviderResult TypeResult StatusKristina Sergio NPLAB BLOOD ORDERABLESFinal ResultPerforming OrganizationAddressCity/State/ZIP CodePhone Number [facility] * PAP TEST, EXTERNAL (01/08/2025 12:00 AM EST) Narrative Authorizing ProviderResult TypeResult StatusFazio Nurse [facility] ObLAB CYTOLOGY ORDERABLESFinal ResultPerforming OrganizationAddressCity/State/ZIP CodePhone Number EXTERNAL LAB from Last 3 Months Insurance Care Teams Team MemberRelationshipSpecialtyStart DateEnd Date Elba Alarcon NP [address] [place] [address] PCP - GeneralFamily Medicine06/20/24
--- OUTSIDE RECORDS SUMMARY | 2025-02-02 07:44 | XMS_ITS | Clinical Summary ---
Author Organization [facility] Address [address] [facility], [address] [place] [address] Care Team Providers Care Optimization Engineer Name Role Phone Fernando Garrido MD Primary Care Provider [phone] Allergies No known active allergies Medications MedicationSigDispense QuantityRefillsLast FilledStart DateEnd DateStatus lidocaine (XYLOCAINE) 5 % ointment Indications:VulvodyniaApply topically as needed to the vulvar introitus 30 g 3Active Additional Information Patient not taking.Reported on 05/18/2022 Clindamycin Phosphate 1 % FOAM Apply 1 drop topically in the morning and at bedtime 100 g 3033Active Active Problems ProblemNoted DateDiagnosed DateSkene's gland cyst05/06/2022 Overview (05/06/2022): Recurrent skene's gland cysts Laqjwvsvyc64/16/2023elvic pain03/16/2022 Family History Medical HistoryRelationNameCommentsLung CancerFatherColon CancerMaternal GrandfatherAlzheimer's DiseaseMaternal GrandmotherLung CancerPaternal GrandfatherRelationNameStatusCommentsFatherDeceasedMaternal GrandfatherMaternal GrandmotherDeceasedMotherAlivePaternal GrandfatherDeceased Social History Tobacco UseTypesPacks/DayYears UsedDateSmoking Tobacco: NeverSmokeless Tobacco: Never Tobacco Cessation:Counseling Given: Not Answered Alcohol UseStandard Drinks/WeekCommentsNot Currently0 (1 standard drink = 0.6 oz pure alcohol)socialCommentsNoSex and Gender InformationValueDate RecordedSex Assigned at BirthNot on fileLegal DejBpjlqj42/04/2022 1:26 PM EDT Gender IdentityNot on fileSexual OrientationNot on file Last Filed Vital Signs Vital SignReadingTime TakenCommentsBlood Pkaiawtg478/7903 10:22 AM EST Vktri384805/01/2022 10:22 AM ESTTemperature--Respiratory Rate--Oxygen Saturation-- Inhaled Oxygen Concentration--Oxncve27.3 kg (144 lb)05/01/2022 10:22 AM EST Eosevg266.2 cm (5' 7 )03/16/2022 1:21 PM ESTBody Mass Index22.55003/16/2022 1:21 PM EST Plan of Treatment Health MaintenanceDue DateLast DoneCommentsDepression Ehjjaw6907/13/1992Varicella vaccine (1 of 2 - 13+ 2-dose series)1993HIV bqsacp7007/14/1995Hepatitis C yckudi2707/13/1998DTaP/Tdap/Td vaccine (1 - Tdap)07/14/1999Hepatitis B vaccine (1 of 3 - 19+ 3-dose series)07/14/1999Pap smear2001Cervical cancer screen 2010HPV (without or with Pap)2010reast cancer shrsni6307/13/2020 Ehrikf6507/13/2020Flu vaccine (#1)09/29/2024OVID-19 Vaccine ( season) 2024HPV vaccine (No Doses Required)CompletedHepatitis A vaccineAged OutNo longer eligible based on patient's age to complete this topicHib vaccineAged Out No longer eligible based on patient's age to complete this topicMeningococcal (ACWY) vaccineAged OutNo longer eligible based on patient's age to complete this topicMeningococcal B vaccineAged OutNo longer eligible based on patient's age to complete this topicPneumococcal 0-49 years VaccineAged OutNo longer eligible based on patient's age to complete this topicPolio vaccineAged OutNo longer eligible based on patient's age to complete this topic Insurance Care Teams Team MemberRelationshipSpecialtyStart DateEnd Date Fernando Garrido MD [address] [place] [address] PCP - GeneralObstetrics & Gynecology03/16/22
--- OUTSIDE RECORDS SUMMARY | 2025-02-02 07:44 | XMS_ITS | Clinical Summary ---
Author Organization [facility] Address [address] [place], [place] [address] Care Team Providers Care Senior Designer/Art Director Name Role Phone Idalmis Garcia Primary Care Provider [phone] Social History Tobacco UseTypesPacks/DayYears UsedDateSmoking Tobacco: Never Assessed CommentsUnknownSex and Gender InformationValueDate RecordedSex Assigned at Not on fileLegal OahIkbjja24/02/2012 8:11 AM ESTGender IdentityNot on fileSexual OrientationNot on file Plan of Treatment Health MaintenanceDue DateLast DoneCommentsAnxiety Awbuheqne33/15/1999Depression Jjaeffhro13/15/1999HIV Rcsmtzboo66/15/1999Hepatitis C Ddaahxmdd68/15/1999 DTaP,Tdap,Td Vaccine (1 - Tdap)07/14/1999Hepatitis B Vaccine (1 of 3 - 19+ 3- dose series)07/14/1999HPV Vaccine (1 - 3-dose SCDM series)07/14/2007Cervical Cancer Yggtohtxj34Mammogram Mbfmfnsiq82/15/2021Covid-19 Vaccine (1 - 2024- season)2024Influenza Vaccine (#1)2024 Procedures Procedure NamePriorityDate/TimeAssociated DiagnosisCommentsPAP FLUID CERVICAL BWRSXDTPRQhmpgrz44/07/2010 from Last 3 Months or Most Recently Relevant to Health Maintenance Results * PAP FLUID CERVICAL SCREENING (12/05/2009)ComponentValueRef RangeTest Method Analysis TimePerformed AtPathologist SignatureTranscription Specimen #: [id number] Submitting Physician: CODY CASAREZ M.D. SPECIMEN SUBMITTED A: CERVICAL,SCREENING, FLUID FINAL DIAGNOSIS A. CERVICAL,SCREENING, FLUID Satisfactory for interpretation. Negative for intraepithelial lesion or malignancy. Acute inflammation. This specimen has been analyzed by the ManomasaPrep Imaging System (Ceregene), an automated imaging and review system, which assists the laboratory in evaluating cells on ThinPrep Pap tests. ??Following automated imaging, selected ba from every slide are reviewed by a chief librarian work with blind. Lisa DIALLO (ASCP) ? (Electronic Signature) CLINICAL DATA Date of Last Menstrual Period: 3 WEEKS AGO Clinical History: PREVIOUS PAP SMEAR: 2008 WNL ROUTINE Additional Testing: Reflex HPV testing for ASCUS STAINS A: ??CERVICAL,SCREENING, FLUID ? THIN PREP WOUND CARE TECHNICIAN x 1 Alisa Bateman M.D., Insurance Claims Examiner : 1980 (Age: 29) F Date of Report: 12/11/2009 Date of Procedure: 12/05/2009 Date of Receipt: 12/06/2009 Submitted by: CODY CASAREZ M.D. Location: Test performed by: ??[facility], [address] [place], [place] ??[address] COPATHPLUSSpecimen (Source)Anatomical Location / LateralityCollection Method / VolumeCollection TimeReceived Time 5:58 AM EDT Narrative Authorizing ProviderResult TypeResult StatusCcf ProviderCYTOLOGYFinal Result Performing OrganizationAddressCity/State/ZIP CodePhone Number [facility] [address] [place] [address] from Last 3 Months or Most Recently Relevant to Health Maintenance Care Teams Team MemberRelationshipSpecialtyStart DateEnd Date Idalmis Garcia: [phone] [address] [place] [address] PCP - Ewwygdc47/28/07
--- OUTSIDE RECORDS SUMMARY | 2025-02-02 07:44 | XMS_ITS | Patient Health Record ---
Author Organization [facility] [place] Address [address] [place] [address] Care Team Providers Care Group Insurance Specialist Name Role Phone Reanna Whitley CNP Primary Care Provider Unavaila ble Allergies No Known Allergies Reason For Referral No Information Social History Tobacco Use: Social History Observation Description Date Details (start date - stop date) Never Smoker NA - NA Tobacco Use/Smoking Question Answer Notes Patient is a nonsmoker Problems Problem Type SNOMED Code ICD Code Onset Dates Problem Status W/U Status Risk Notes Problem Mononeuropathy of lo wer limb (772222828) Unspecified mononeuropathy of right lower limb (G57.91) Activeconfirmed Plan Of Treatment No Information Insurance Providers Payer Name Payer Address Payer Phone Subscriber Number Group Number Insured Name Patient Relationship to Insured Coverage Start Date Coverage End Date [employer] [address] [address] [place] [address] [id number] [place] Self - patient is the insured Medical (General) History Medical History History ICD Code Onychomycosis B35.1 Tinea pedis B35.3 Surgical History Surgery Date(Month/Year) ablation pre-cancerous moles removed
--- OUTSIDE RECORDS SUMMARY | 2025-02-02 07:44 | XMS_ITS | Encounter Summary ---
Author Organization [facility] Address [address] [facility] [place] [address] Care Team Providers Care Stationary Engineer Name Role Phone DorianElba taylor NATHEN Primary Care Provider [phone] Encounter Details DateTypeDepartmentCare Team (Latest Contact Info)Ycrhyqqzjja95/21/2025Orders Only [facility] Niles JOHNSON [address] [place] [address] [place] [address] Lata Raza LPN [address] [facility] [address] [place], [place] [address] Social History Tobacco UseTypesPacks/DayYears UsedDateSmoking Tobacco: NeverSmokeless Tobacco: NeverAlcohol UseStandard Drinks/WeekCommentsYes0 (1 standard drink = 0.6 oz pure alcohol)occCommentsUnknownSex and Gender InformationValueDate Recorded Sex Assigned at BirthNot on fileLegal FduQhubvo99/15/2023 6:35 PM EDTGender IdentityNot on fileSexual OrientationNot on filedocumented as of this encounter Plan of Treatment DateTypeDepartmentCare Team (Latest Contact Info)Fzvfsrcbnaq97/30/2026 4:00 PM ESTProcedure Visit [facility] Niles JOHNSON [address] [place] [address] Fernando Garrido DO [address] [facility] [place] [address] documented as of this encounter Procedures Procedure NamePriorityDate/TimeAssociated DiagnosisCommentsPAP TEST, EXTERNAL Udlrgtd7801/08/2025 12:00 AM ESTdocumented in this encounter Results * PAP TEST, EXTERNAL (01/08/2025 12:00 AM EST) Narrative Authorizing ProviderResult TypeResult StatusFazio Nurse [facility] ObLAB CYTOLOGY ORDERABLESFinal ResultPerforming OrganizationAddressCity/State/ZIP CodePhone Number EXTERNAL LAB documented in this encounter Visit Diagnoses Not on filedocumented in this encounter Care Teams Team MemberRelationshipSpecialtyStart DateEnd Date Elba Alarcon NP [address] [place], [place] [id number] PCP - GeneralFamily Medicine06/20/24documented as of this encounter
== END 2025-02-02 07:41 | disposition home or self-care (01) ==
LOC: MAMMO 07:40
PROVIDERS: Visit Provider Obstetrics & Gynecology
DX: Z12.31 Encounter for screening mammogram for malignant neoplasm of breast (principal); Z80.1 Family history of malignant neoplasm of trachea, bronchus and lung
CPT/HCPCS: 77063; 77067